=== PATIENT | male | born 1970 | race Caucasian/White ===

== ENCOUNTER 2016-04-19 12:06 | Observation (INO) | payer BC ==
[~2016-04-19] VITALS: Ht 180.3 cm; Wt 101.5 kg
[~2016-04-19 12:06] MED LIST: AMLO-114 PO; ASPI81TA28 PO; LISI40TA PO; LPT40 PO; PLV75 PO
[2016-04-19 12:51] LABS: BASO % 0.6 %; BASO ABS # 0.09 K/uL (0-0.2); COMPLETE YES; HEMATOCRIT 46.9 % (42-52); IG% 0.5 %; LYMPH % 19.1 %; LYMPH ABS # 3.01 K/uL (1.2-3.4); MEAN CELL VOLUME 83.5 fL (80-100); MEAN CORPUSCULAR HEMOGLOBIN 28.6 pg (25-34); MEAN CORPUSCULAR HGB CONC 34.3 g/dl (32-36); MEAN PLATELET VOLUME 10.8 fL (7.4-10.4); NEUT % 72.8 %; PLATELET COUNT 245 K/uL (130-400); RED BLOOD COUNT 5.62 M/uL (4.7-6.1); WHITE BLOOD COUNT 15.73 K/uL (4.8-10.8)
[2016-04-19 13:12] LABS: BUN/CREATININE RATIO 7.3 (10-20); CALCIUM 8.5 mg/dl (8.5-10.1); POTASSIUM 3.9 mmol/L (3.5-5.1)
[2016-04-19 13:15] LABS: ALB/GLOB RATIO 0.9 (0.9-2)
[2016-04-19] MEDS ORDERED: OPTIRAY 320 IV PRN (14:30)
--- NOTE | 2016-04-19 15:34 | DIAGNOSTIC IMAGING REPORT ---
CT ANGIOGRAM OF THE BRAIN COMBO; CT ANGIOGRAM OF THE NECK CLINICAL HISTORY: Right hand numbness. History of previous stroke. COMPARISON STUDY: CT angiogram of the brain and neck dated 08/01/2015. MRI of the brain dated 08/01/2015. TECHNIQUE: Unenhanced axial CT scan of the brain is performed. Subsequently, following the IV administration of 118 of Optiray 320, CT angiogram of the head and neck was performed from the aortic arch to the vertex. Images are reviewed in the axial, sagittal, and coronal planes. 3-D MIPS images are created and assessed. IV contrast was administered without complication. All measurements were calculated based on NASCET criteria. CT DOSE: 1074.82 mGy.cm FINDINGS: Brain parenchyma: Small foci of right frontoparietal encephalomalacia are consistent with remote infarcts. A chronic lacunar infarct is also seen in the right cerebellar hemisphere. There is no hemorrhage, mass effect, or evidence of acute territorial ischemia by CT criteria. There is no evidence of enhancing mass lesion on the angiogram phase images. The ventricles, sulci, and cisterns are normal in configuration. No extra-axial fluid collection is seen. Carranza-white matter differentiation is preserved. Thoracic aorta: Visualized portions of the thoracic aorta are normal in caliber. The aortic arch demonstrates standard 3-vessel anatomy. Subclavian arteries: Widely patent bilaterally. Right carotid arterial system: The right common carotid artery is widely patent, as are the right internal and external carotid arteries. Left carotid arterial system: The left common carotid artery is widely patent, as are the left internal and external carotid arteries. Vertebral arteries: The vertebral arteries are widely patent and codominant. Intracranial vasculature: There is moderate atherosclerotic calcification of the cavernous carotid arteries. There is a mild residual narrowing within the petrous portion of the right internal carotid artery to the skull base. This has significantly improved from the 08/01/2015 examination. The left internal carotid artery at the skull base as well as the anterior and middle cerebral arteries are widely patent. The vertebrobasilar system and the posterior cerebral arteries are widely patent. No aneurysm or focal vessel cutoff is identified. No dissection is seen Jugular veins: Widely patent bilaterally. Dural sinuses: Clear as visualized. Upper chest: Partially visualized upper lobe lung parenchyma appears clear. Mildly enlarged mediastinal lymph nodes measure up to 1.2 cm in short axis. Soft tissues: The visualized pharyngeal soft tissues are normal in appearance noting angiographic phase technique. The oropharyngeal airway appears widely patent. The salivary and thyroid glands are normal in appearance. No cervical lymphadenopathy is seen. Skeletal structures: The calvarium appears intact. The cervical spine is within normal limits. Sinuses and mastoids: Mild mucosal thickening is seen within the ethmoid and left frontal sinuses. Trace mucosal thickening is seen within the left maxillary antrum. There is a trace left mastoid effusion. The right mastoid air cells are well pneumatized. IMPRESSION: 1. Remote right hemispheric infarcts as above. There is no hemorrhage, mass effect, or evidence of acute territorial ischemia by CT criteria. 2. There is only minimal residual narrowing within the petrous portion of the intracranial right internal carotid artery. The intracranial vasculature is otherwise normal in appearance. 3. No aneurysm, focal vessel cut off, or dissection is identified on today's examination. 4. Unremarkable CT angiogram the neck. 5. Additional findings as above. Electronically signed by: Silviano Richmond M.D. 04/19/2016 3:32 PM Dictated Date/Time: 04/19/2016 3:18 PM
[2016-04-19] MEDS ORDERED: ACETAMINOPHEN 325 MG TAB PO PRN (18:00)
[2016-04-19] MEDS ORDERED: MAGNESIUM HYDROXIDE SUSP 30 ML UDC PO PRN (18:00)
[2016-04-19] MEDS ORDERED: ZOLPIDEM TARTRATE 5 MG TAB PO PRN (18:00)
[2016-04-19] MEDS ORDERED: ALUMINUM/MAGNESIUM/SIMETH (MAALOX MAX) 30 ML UDC PO PRN (18:00)
[2016-04-19] MEDS ORDERED: POLYETHYLENE (MIRALAX) 17 GM PACK PO PRN (18:00)
[2016-04-19] MEDS ORDERED: PHARMACIST DISCHARGE MED REC CONSULT PRN (18:00)
[2016-04-19] MEDS ORDERED: ONDANSETRON INJ 2 MG/ML 2 ML VIAL IV PRN (18:00)
--- NOTE | 2016-04-19 18:12 | History and Physical ---
History & Physical Date of Service Apr 19, 2016. History & Physical possible cva [id number]
[2016-04-19 18:15] LABS: ESTIMATED AVERAGE GLUCOSE 123 mg/dl; HA1C FLAG Normal (Normal)
[2016-04-19] MEDS ORDERED: IV FLUIDS COMPLETED PRN (18:30)
[2016-04-19 19:14] LABS: PROTHROMBIN TIME (PATIENT) 10.7 SECONDS (9.0-12.0)
[2016-04-19 19:30] VITALS: BP 122/85; PULSE 76; TEMP 36.9; O2SAT 94; Ht 180.3 cm; Wt 101.5 kg
[2016-04-19] MEDS: SODIUM CHLORIDE 0.9% 1000ML 1,000 ML IV SCH (19:57)
[2016-04-19] MEDS ORDERED: GADAVIST IV PRN (21:15)
--- NOTE | 2016-04-19 21:18 | DIAGNOSTIC IMAGING REPORT ---
MRI OF THE BRAIN WITHOUT AND WITH IV CONTRAST CLINICAL HISTORY: Possible cerebrovascular accident. Tingling and numbness in fingers. Previous stroke. COMPARISON STUDY: MRI of the brain August 01, 2015 and CTA and CTA of the head April 19, 2016. TECHNIQUE: Utilizing a 1.5 Dayanara magnet and dedicated coil, multiplanar, multiecho imaging of the brain was performed pre and postcontrast administration. IV administration of 10 mL of Gadavist contrast was uneventful. FINDINGS: There are no areas of restricted diffusion. No acute intracranial hemorrhage, midline shift or mass effect is present. Brain volume is normal. Ventricular system is normal. Basilar cisterns are patent. There are no extra-axial collections. Flow-voids for the major intracranial vessels are present. Multiple old infarcts are noted within the right cerebral hemisphere as well as within the right cerebellar hemisphere. No intracranial mass or pathologic enhancement is present. There is mild mucosal thickening of the sinuses. Orbits are unremarkable. IMPRESSION: 1. No acute intracranial findings. 2. Multiple old infarcts within the right cerebral and cerebellar hemispheres. 3. No intracranial masses. Electronically signed by: Anthony Hudson M.D. 04/19/2016 9:16 PM Dictated Date/Time: 04/19/2016 9:06 PM
--- NOTE | 2016-04-19 21:20 | DIAGNOSTIC IMAGING REPORT ---
CHEST 2 VIEWS ROUTINE CLINICAL HISTORY: Leukocytosis. COMPARISON STUDY: Chest radiograph August 01, 2015. FINDINGS: Lung volumes are normal. Lungs are clear. There is no pneumothorax or pleural effusion. Cardiac size is normal. Mediastinal contours are normal. There is no evidence of pulmonary edema. IMPRESSION: No acute cardiopulmonary findings. Electronically signed by: Anthony Hudson M.D. 04/19/2016 9:19 PM Dictated Date/Time: 04/19/2016 9:17 PM
--- NOTE | 2016-04-19 21:20 | EMERGENCY ROOM VISIT NOTE ---
History Report prepared by Morgan: Yesenia Austin Under the Supervision of: Dr. Kobi Gardiner M.D. First contact with patient: 14:01 Chief Complaint: NEURO SYMPTOMS Stated Complaint: TINGLING FINGER WITH NUMBNESS Nursing Triage Summary: patient to ed via als for neuro symptoms, states "I yumiko burning in right hand last night at 2200, then when i woke up this morning, my fingers were tingling. They aren't anymore, they are just really tender." Patient with previous strokes, reports similar symptoms with previous cva History of Present Illness The patient is a 45 year old male who presents to the Emergency Room with complaints of resolved right fingertip numbness that started 4 hours ago, around 1000. 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 He woke up around 1000 this morning with numbness in his right fingertips. He states that last night around 2200, he experienced burning in his right hand, but it resolved. The patient also states that ever since last night he has been increasingly thirsty because his mouth always feels dry. Pt denies LOC, headache, fevers, chills, diaphoresis, visual changes , trouble speaking, trouble swallowing, new neck pain, chest pain, breathing difficulties, nausea, vomiting, abdominal pain, back pain, melena, hematochezia , urinary symptoms, weakness, lymphadenopathy, rash, or other complaints. The patient states that his symptoms feel somewhat similar to when he had a stroke on August 01, 2015. However, he states that during that time, his whole left hand was edematous and numb. The patient's previous stroke was a result of a blood clot and possible dissection of his left carotid artery and it affected his left side. Source of History: patient Onset: 4 hours ago, around 1000 Position: finger(s) (right) Quality: numbness Timing: resolved Note: increased thirst, tingling around mouth Review of Systems See HPI for pertinent positives and negatives. A total of ten systems were reviewed and were otherwise negative. Past Medical & Surgical Medical Problems: (1) CVA (cerebral vascular accident) (2) Left hand weakness (3) possible cva Family History Diabetes mellitus Heart disease Hypertension Social History Smoking Status: Current Every Day Smoker Drug Use: none Marital Status: single Housing Status: lives alone Occupation Status: employed Current/Historical Medications Scheduled Amlodipine (Norvasc), 10 MG PO DAILY Atorvastatin (Atorvastatin Calcium), 80 MG PO QAM Clopidogrel Bisulfate (Clopidogrel), 75 MG PO QAM Lisinopril (Zestril), 40 MG PO DAILY Allergies Coded Allergies: No Known Allergies (Unverified , 04/19/16) Physical Exam Vital Signs Date Time Temp Pulse Resp B/P Pulse Ox O2 Delivery O2 Flow Rate FiO2 04/19/16 17:09 72 20 124/84 97 Room Air 04/19/16 15:53 74 16 107/76 95 Room Air 04/19/16 13:58 72 20 149/90 94 Room Air 04/19/16 12:11 95 16 135/93 95 Room Air Physical Exam GENERAL: Awake, alert, well appearing, no distress HENT: Normocephalic, atraumatic. TM's normal. Oropharynx unremarkable. EYES: PERRL. EOMI. Normal conjunctiva. Sclera non-icteric. NECK: Supple. No nuchal rigidity. FROM. No JVD or bruit. RESPIRATORY: CTA CARDIAC: RRR. No murmur. ABDOMEN: Soft, non distended. No tenderness to palpation. No rebound or guarding. No masses. RECTAL: Deferred. MUSCULOSKELETAL: Unremarkable. No edema. No discoloration. Gross motor strength symmetric. NEURO: Cranial nerves 2-12 grossly intact. Normal sensorium. No sensory or motor deficits noted. Speech normal. No pronator drift. SKIN: No rash or jaundice noted. LYMPH: No adenopathy. Medical Decision & Procedures ER Provider Diagnostic Interpretation: CT results as stated below per my review and radiologist interpretation CT ANGIOGRAM OF THE BRAIN COMBO; CT ANGIOGRAM OF THE NECK IMPRESSION: 1. Remote right hemispheric infarcts as above. There is no hemorrhage, mass effect, or evidence of acute territorial ischemia by CT criteria. 2. There is only minimal residual narrowing within the petrous portion of the intracranial right internal carotid artery. The intracranial vasculature is otherwise normal in appearance. 3. No aneurysm, focal vessel cut off, or dissection is identified on today's examination. 4. Unremarkable CT angiogram the neck. 5. Additional findings as above. Electronically signed by: Silviano Richmond M.D. 04/19/2016 3:32 PM Dictated Date/Time: 04/19/2016 3:18 PM Laboratory Results 04/19/16 12:35 Red Blood Count 5.62, Mean Corpuscular Volume 83.5, Mean Corpuscular Hemoglobin 28.6, Mean Corpuscular Hemoglobin Concent 34.3, Mean Platelet Volume 10.8, Neutrophils (%) (Auto) 72.8, Lymphocytes (%) (Auto) 19.1, Monocytes (%) (Auto) 6.0, Eosinophils (%) (Auto) 1.0, Basophils (%) (Auto) 0.6, Neutrophils # (Auto) 11.46, Lymphocytes # (Auto) 3.01, Monocytes # (Auto) 0.94, Eosinophils # (Auto) 0.15, Basophils # (Auto) 0.09 04/19/16 12:35 Test 04/19/16 12:35 White Blood Count 15.73 K/uL (4.8-10.8) Red Blood Count 5.62 M/uL (4.7-6.1) Hemoglobin 16.1 g/dL (14.0-18.0) Hematocrit 46.9 % (42-52) Mean Corpuscular Volume 83.5 fL (80-100) Mean Corpuscular Hemoglobin 28.6 pg (25-34) Mean Corpuscular Hemoglobin Concent 34.3 g/dl (32-36) Platelet Count 245 K/uL (130-400) Mean Platelet Volume 10.8 fL (7.4-10.4) Neutrophils (%) (Auto) 72.8 % Lymphocytes (%) (Auto) 19.1 % Monocytes (%) (Auto) 6.0 % Eosinophils (%) (Auto) 1.0 % Basophils (%) (Auto) 0.6 % Neutrophils # (Auto) 11.46 K/uL (1.4-6.5) Lymphocytes # (Auto) 3.01 K/uL (1.2-3.4) Monocytes # (Auto) 0.94 K/uL (0.11-0.59) Eosinophils # (Auto) 0.15 K/uL (0-0.5) Basophils # (Auto) 0.09 K/uL (0-0.2) RDW Standard Deviation 43.3 fL (36.4-46.3) RDW Coefficient of Variation 14.1 % (11.5-14.5) Immature Granulocyte % (Auto) 0.5 % Immature Granulocyte # (Auto) 0.08 K/uL (0.00-0.02) Prothrombin Time 10.7 SECONDS (9.0-12.0) Prothromb Time International Ratio 1.0 (0.9-1.1) Activated Partial Thromboplast Time 25.3 SECONDS (21.0-31.0) Partial Thromboplastin Ratio 1.0 Anion Gap 12.0 mmol/L (3-11) Est Creatinine Clear Calc Drug Dose 113.8 ml/min Estimated GFR () 104.1 Estimated GFR (Non- 89.9 BUN/Creatinine Ratio 7.3 (10-20) Estimated Average Glucose 123 mg/dl Hemoglobin A1c 5.9 % (4.5-5.6) Calcium Level 8.5 mg/dl (8.5-10.1) Total Bilirubin 0.2 mg/dl (0.2-1) Aspartate Amino Transf (AST/SGOT) 16 U/L (15-37) Alanine Aminotransferase (ALT/SGPT) 27 U/L (12-78) Alkaline Phosphatase 121 U/L (45-117) Total Protein 7.6 gm/dl (6.4-8.2) Albumin 3.5 gm/dl (3.4-5.0) Globulin 4.1 gm/dl (2.5-4.0) Albumin/Globulin Ratio 0.9 (0.9-2) Laboratory results reviewed by me ECG Indication: weakness Rate (beats per minute): 75 Rhythm: normal sinus Findings: no acute ischemic change, no ectopy ED Course 1407: The patient was evaluated in room B4. A complete history and physical exam was performed. 1608: I reassessed the patient and informed him that I am waiting on a call from Dr. Clark. 1610: Discussed the patient's case with Dr. Clark - Neurology. He recommends having the patient stay in the hospital for inpatient monitoring and a further stroke work-up. He recommends a MRI and SARA. 1621: Upon reexamination, the patient was resting comfortably. I discussed the test results and treatment plan with him. The patient will be evaluated for further management. 1637: Discussed the patient's case with Dr. Beata Gonzalez [facility]. The patient will be evaluated for further treatment and disposition. Medical Decision Triage Nursing notes reviewed. The patient's presentation and history were concerning for tingling in his fingers and numbness. Etiologies such as metabolic, infection, hypo/hyperglycemia, electrolyte abnormalities, cardiac sources, intracerebral event, toxicologic, neurologic, as well as others were entertained. The patient was evaluated. He has a history of CVA. The patient had a mild leukocytosis on CBC. Chemistry panel and LFTs were unremarkable. He underwent CT angiography and there were no acute findings noted. Old right-sided infarcts noted. I did consult with neurology. Given his findings and history neurology recommended inpatient workup due to concerns about possible embolic issues. The patient was informed. Internal medicine was consulted. The patient was evaluated in the Emergency Room for further management. The chart was completed utilizing [employer] Speech voice recognition software. Grammatical errors, random word insertions, pronoun errors, and incomplete sentences are an occasional consequence of this system due to software limitations, ambient noise, and hardware issues. Any formal questions or concerns about the content, text, or information contained within the body of this dictation should be directly addressed to the physician for clarification. Consults Time Called: 1606 Consulting Physician: Dr. Eduardo Cisneros Returned Call: 1610 Discussed the patient's case with Dr. Eduardo Cisneros. He recommends having the patient stay in the hospital for inpatient monitoring and a further stroke work-up. He recommends a MRI and SARA. Additional Consults: Time Called: 1632 Consulted Physician: Dr. Beata SCHROEDER Returned Call: [phone] Additional Comments: Discussed the patient's case with Dr. Beata SCHROEDER. The patient will be evaluated for further treatment and disposition. Impression Primary Impression: Numbness of right hand Additional Impression: History of CVA (cerebrovascular accident) Scribe Attestation The scribe's documentation has been prepared under my direction and personally reviewed by me in its entirety. I confirm that the note above accurately reflects all work, treatment, procedures, and medical decision making performed by me. Departure Information Dispostion Being Evaluated By Hospitalist Referrals No Doctor, Assigned (PCP) Patient Instructions [facility] Problem Qualifiers
[2016-04-19] MEDS: HEPARIN SOD 5000 UNIT/0.5 ML CARP SQ SCH (21:24)
[2016-04-19] MEDS ORDERED: NICOTINE 21 MG/24 HR TDSY TD ONE (21:35)
[2016-04-19 22:07] LABS: URINE APPEARANCE CLEAR (CLEAR); URINE BILIRUBIN NEG (NEG); URINE COLOR YELLOW; URINE NITRITE NEG (NEG); URINE SPECIFIC GRAVITY > 1.045 (1.000-1.030); UROBILINOGEN NEG (NEG)
[2016-04-19 22:29] LABS: MANUAL MICROSCOPIC REQUIRED? NO; REVIEW REQ? NO
[2016-04-19 23:30] VITALS: BP 102/66; PULSE 67; TEMP 36.6; O2SAT 92
[2016-04-20] VITALS (8 sets, daily range): BP systolic 105–132; BP diastolic 70–85; PULSE 61–72; TEMP 36.4–36.6; O2SAT 92–98
--- NOTE | 2016-04-20 00:51 | HISTORY & PHYSICAL EXAMINATION ---
DATE OF ADMISSION: 04/19/2016 This is a level 3 observation H\T\P, 25 minutes. CHIEF COMPLAINT: Right hand and finger tingling and numbness. HISTORY OF PRESENT ILLNESS: The patient is a 45-year-old white male with a significant past medical history of CVA, ischemic stroke 2 years ago, hypertension and dyslipidemia, coming to the hospital Emergency Department because of the above chief complaint. He reports the right fingertips numbness started this morning about 4 hours ago around 10:00 a.m. The patient stated the fingertips are not numb anymore and just really tender. 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 this morning. He woke up around 10:00 a.m. this morning with numbness in his right fingertips. He stated that last night at around 2200, he experienced burning in his right hand, but it resolved. The patient also stated that even since last night he has been having increased thirst because of which the mouth always feels dry. In the Emergency Room, evaluation of labs was not remarkable except WBC which was 15,000. The ED physician had a head CTA and CTA of the neck which only shows remote right hemispheric infarction. Otherwise, not remarkable. I was called for possible admission of the patient. When I interviewed the patient he is awake, alert, orientated, pleasant, conversational, follows all commands and speaks in full sentences. He did report that when he checked himself in the mirror this morning had possible right facial droop, but not anymore. PAST MEDICAL HISTORY: Like I mentioned above includes a CVA 2 years ago. In his CVA 2 years ago, he was found to have high grade stenosis in upper level of right ICA, has been on antiplatelet with Plavix. He had echo studies and three time attempts for SARA, was not able to tolerate. History of hypertension and dyslipidemia. PAST SURGICAL HISTORY: None. REVIEW OF SYSTEMS: Please see HPI, otherwise 14-point organ system review was negative. SOCIAL HISTORY: Positive for tobacco abuse. Denied alcohol abuse. Denied illicit drug abuse. Lives independently. FAMILY HISTORY: Noncontributory. MEDICATIONS: Taking at home which include; amlodipine 10 mg p.o. daily, atorvastatin 80 mg p.o. q.a.m., clopidogrel 75 mg p.o. q.a.m. and lisinopril 40 mg p.o. daily. PHYSICAL EXAMINATION: VITAL SIGNS: Temperature is 36.8, pulse 65, respiratory rate 20, blood pressure 129/77 and pulse ox was 95% on room air. GENERAL: The patient is a white male, with mild obesity, awake, alert and orientated. HEAD: Normocephalic. EYES: Pupils are equal, round and responds to light. EARS: Normal. NOSE: Normal. NECK: Supple. Thyroid; no enlargement. Trachea; midline. HEART: Regular rhythm. S1, S2. Has no murmur. LUNGS: Decreased breathing sounds. There was no wheezing, rhonchi or crackles. ABDOMEN: Obese, nontender. Bowel sounds positive. Bilateral CVA was nontender. GENITOURINARY AND RECTAL: Deferred. BILATERAL LOWER EXTREMITIES: No swelling. Homans sign was negative. There was no cyanosis, no clubbing. NEUROLOGIC: Cranial nerves II-XII was intact. There was no local deficits. Moves upper and lower extremities. There was no obvious sensation decrease in the bilateral upper and lower extremities. NIH stroke scale currently is 0. SKIN: Has no rashes. LABORATORY STUDIES: WBC 15, hemoglobin 16, platelet 245. BMP: BUN 7, creatinine 1. Sodium 138, potassium 3.9. Blood glucose 121. In the Emergency Room had a head CTA like I mentioned above right hemispheric infarction. No hemorrhage, mass effect or evidence of acute territorial ischemia by CT criteria. There is only minimal residual narrowing within the petrous portion of the intracranial right ICA, the intracranial vasculature is otherwise normal in appearance. No aneurysm. Head and neck CTA; like I mentioned above. ASSESSMENT AND PLAN: A 45-year-old white male with history of cerebrovascular accident, right high grade carotid artery stenosis, presents with right fingertip tingling and numbness, possibly has cerebrovascular accident. He did report the symptoms were quite the same like his previous episode of CVA, and therefore will be observed in the tele floor. will be per stroke protocol. Neuro check q. 4 hours. Continue home medications to include; Plavix, lisinopril and atorvastatin. We will check fasting lipid panels, hemoglobin A1c levels. Will have neuro consultation. The ED physician talked to the neurologist. He did recommended possible need of transesophageal echocardiogram and we will order a brain MRI as well. I have consulted cardiology for possible need of a transesophageal echocardiogram. Because the patient has no speech problems, we will give him low fat heart healthy diet for now. Speech evaluation to continue recommendation. We will give him gentle IV fluids. The patient has mild leukocytosis, etiology unknown. We will check a chest x-ray, UA, send a blood culture and then follow up. Deep venous thrombosis prophylaxis will be heparin. GI prophylaxis will be Protonix. I discussed with patient and family about the care plan. I answered all the questions. The patient is full code. MTDD
[2016-04-20 06:31] LABS: BUN/CREATININE RATIO 9.1 (10-20); CALCIUM 8.2 mg/dl (8.5-10.1); CREATININE 0.99 mg/dl (0.60-1.40); POTASSIUM 3.7 mmol/L (3.5-5.1)
[2016-04-20 06:34] LABS: CHOLESTEROL/HDL RATIO 7.7
[2016-04-20 06:46] LABS: HEMATOCRIT 45.5 % (42-52); MEAN CELL VOLUME 85.8 fL (80-100); MEAN CORPUSCULAR HEMOGLOBIN 29.1 pg (25-34); MEAN CORPUSCULAR HGB CONC 33.8 g/dl (32-36); MEAN PLATELET VOLUME 10.9 fL (7.4-10.4); PLATELET COUNT 223 K/uL (130-400); WHITE BLOOD COUNT 9.26 K/uL (4.8-10.8)
[2016-04-20] MEDS: NICOTINE 21 MG/24 HR TDSY TD SCH (07:11)
[2016-04-20] MEDS: CLOPIDOGREL BISULFATE 75 MG TAB PO SCH (07:12)
[2016-04-20] MEDS: LISINOPRIL 40 MG TAB PO SCH (07:13)
[2016-04-20] MEDS: AMLODIPINE BESYLATE 5 MG TAB PO SCH (07:13)
[2016-04-20] MEDS: ATORVASTATIN 40 MG TAB PO SCH (07:14)
[2016-04-20] MEDS: SODIUM CHLORIDE 0.9% 1000ML 1,000 ML IV SCH (07:16)
[2016-04-20 08:42] LABS: BASO % 0.8 %; BASO ABS # 0.07 K/uL (0-0.2); COMPLETE YES; EOS % 2.6 %; IG% 0.4 %; LYMPH % 52.5 %; LYMPH ABS # 4.86 K/uL (1.2-3.4); MONO % 7.2 %; NEUT % 36.5 %; SMUDGE CELLS PRESENT
[2016-04-20] MEDS: HEPARIN SOD 5000 UNIT/0.5 ML CARP SQ SCH ×2 (09:22→22:20)
--- NOTE | 2016-04-20 10:45 | ECHOCARDIOGRAM REPORT ---
*NOTICE TO RECEIVING [employer] This information is strictly Confidential and protected under [place] law. [place] law prohibits you from making any further disclosure of this information unless further disclosure is expressly permitted by the written consent of the person to whom it pertains or is authorized by law. A general authorization for the release of medical or other information is not sufficient for this purpose. Hospital accepts no responsibility if the information is made available to any other person, INCLUDING THE PATIENT. Interpretation Summary * Name: AVA BERRY Study Date: 04/20/2016 07:45 AM BP: 129/78 mmHg * Patient Location: C.2T\S\S232\S\1 HR: 62 * : 1970 (M/d/yyyy) Gender: Male Height: 70 in * Age: 45 yrs Ethnicity: CA Weight: 231 lb * Ordering Physician: Navarro Cota * Referring Physician: Self, Referred * Performed By: Santos Caceres RCS * * Reason For Study: CVA * BSA: 2.2 m2 * -- Conclusions -- * 1. Normal LV size and wall thickness. * 2. Normal LV systolic function. LVEF 50-55%. No regional wall motion abnormalities. * 3. Normal RV size and function. * 4. No significant valvular pathology. * 5. Compared with prior study on 08/01/2015: No significant changes. Procedure Details * A complete two-dimensional transthoracic echocardiogram was performed (2D, M-mode, Doppler and color flow Doppler). Left Ventricle * The left ventricle is grossly normal size. * There is normal left ventricular wall thickness. * Ejection Fraction = 50-55%. * No regional wall motion abnormalities noted. Right Ventricle * The right ventricle is grossly normal size. * The right ventricular systolic function is normal as assessed by tricuspid annular plane systolic excursion (TAPSE) (normal >1.5 cm). Atria * The left atrial size is normal. * Right atrial size is normal. * No ASD detected; PFO is not assessed. Mitral Valve * The mitral valve is grossly normal. * There is no mitral valve stenosis. * Significant mitral regurgitation is absent. Tricuspid Valve * The tricuspid valve is not well visualized, but is grossly normal. * There is no tricuspid stenosis. * Significant tricuspid regurgitation is absent. Aortic Valve * The aortic valve opens well. * The aortic valve is trileaflet. * No hemodynamically significant valvular aortic stenosis. * There is no significant aortic regurgitation. Pulmonic Valve * The pulmonic valve is not well seen, but is grossly normal. * There is no pulmonic valvular stenosis. * Trace pulmonic valvular regurgitation. Great Vessels * The aortic root and proximal ascending aorta are normal sized. Pericardium/Pleural * There is no pericardial effusion. Great Vessels * Normal inferior vena cava size and collapsability with sniff indicates a normal right atrial pressure of 3 mmHg MMode 2D Measurements and Calculations IVSd 1.0 cm IVSs 1.3 cm LVIDd 5.1 cm LVIDs 3.2 cm LVPWd 1.0 cm LVPWs 1.3 cm IVS/LVPW 1.0 FS 36.3 % EDV(Teich) 121.2 ml ESV(Teich) 41.5 ml EF(Teich) 65.8 % EDV(cubed) 129.0 ml ESV(cubed) 33.3 ml EF(cubed) 74.2 % % IVS thick 31.6 % % LVPW thick 30.7 % LV mass(C)d 190.0 grams LV mass(C)dI 85.6 grams/m\S\2 LV mass(C)s 143.0 grams LV mass(C)sI 64.4 grams/m\S\2 CO(Teich) 4.9 l/min CI(Teich) 2.2 l/min/m\S\2 SV(Teich) 79.7 ml SI(Teich) 35.9 ml/m\S\2 CO(cubed) 5.9 l/min CI(cubed) 2.7 l/min/m\S\2 SV(cubed) 95.7 ml SI(cubed) 43.1 ml/m\S\2 Ao root diam 3.6 cm Ao root area 10.1 cm\S\2 ACS 2.0 cm LA dimension 3.8 cm LA/Ao 1.1 LVAd ap4 27.6 cm\S\2 LVLd ap4 7.9 cm EDV(MOD-sp4) 79.0 ml LVAs ap4 17.3 cm\S\2 LVLs ap4 7.1 cm ESV(MOD-sp4) 35.0 ml EF(MOD-sp4) 55.7 % LVAd ap2 21.5 cm\S\2 LVLd ap2 6.8 cm EDV(MOD-sp2) 57.0 ml LVAs ap2 12.4 cm\S\2 LVLs ap2 5.3 cm ESV(MOD-sp2) 26.0 ml EF(MOD-sp2) 54.4 % CO(MOD-sp4) 2.7 l/min CI(MOD-sp4) 1.2 l/min/m\S\2 SV(MOD-sp4) 44.0 ml SI(MOD-sp4) 19.8 ml/m\S\2 CO(MOD-sp2) 1.9 l/min CI(MOD-sp2) 0.87 l/min/m\S\2 SV(MOD-sp2) 31.0 ml SI(MOD-sp2) 14.0 ml/m\S\2 Doppler Measurements and Calculations MV E max trin[place] 68.2 cm/sec MV A max [place] 56.2 cm/sec MV E/A 1.2 MV P1/2t max [place] 89.6 cm/sec MV P1/2t 60.2 msec MVA(P1/2t) 3.7 cm\S\2 MV dec slope 436.2 cm/sec\S\2 MV dec time 0.20 sec Ao V2 max 117.4 cm/sec Ao max PG 5.5 mmHg Ao max PG (full) 3.1 mmHg LV V1 max PG 2.4 mmHg LV V1 max 78.2 cm/sec PA V2 max 124.3 cm/sec PA max PG 6.2 mmHg PI max [place] 191.4 cm/sec PI max PG 14.7 mmHg PI dec slope 175.1 cm/sec\S\2 PI P1/2t 320.1 msec
--- NOTE | 2016-04-20 10:50 | Neurology Consultation ---
Neurology Consultation Date of Consultation: Apr 20, 2016. Attending Physician: Navarro Cota MD, PhD Primary Care Physician: Calvin Baker M.D. 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 He has a history of hypertension and tobacco abuse. The patient was admitted to [facility] in July [address] Partida in neurological consultation at that time. He had presented with acute, multifocal, ischemic infarcts within the right cerebral hemisphere at that time. 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 He had presented with a left hemiparesis and associated sensory loss at that time but was outside of the window for administration of TPA. 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 He does complain of some mild heaviness and numbness the primarily affects the left leg when fatigued, but otherwise no major issues. He continues to smoke, however. He has been taking Plavix as prescribed. The patient did have an echocardiogram completed during his last admission which was unremarkable. A hypercoagulable profile was also completed and revealed only mild elevation in homocysteine level. The patient presented to the emergency department yesterday with new neurological complaints. He reports that after arriving home from work, he typically works the third shift, he began to feel a little dizzy. He subsequently went to bed at around 7 in the morning but remembers awakening several hours later with burning pain and tingling affecting the fingertips of the right hand but not clearly affecting the thumb. He denied experiencing associated wrist, elbow, or shoulder pain. He does complain of some chronic neck pain she feels is a bit worse than usual. He got up and went to work as usual but continued to notice the unusual sensory symptoms affecting fingertips of the right hand. He does not experiencing associated weakness or clumsiness of the right hand. He is right handed. He does not experiencing similar sensory symptoms of the right leg. He may have had some numbness and tingling around the mouth but he is not really certain of this symptom. Due to the persistence of his symptoms, however, he decided to seek evaluation at [facility], especially in light of his previous history of stroke. I reviewed the images and radiologist's interpretation of the recently completed brain MRI. There is no evidence of acute or subacute stroke. There are multiple old infarcts within the right cerebral hemisphere and right cerebellum consistent with this patient's history of stroke. An up-to-date CT angiogram has also been completed. There is evidence of minimal residual narrowing of the petrous right internal carotid artery. No significant vascular occlusion within the cervical vessels. Electrocardiogram reveals a normal sinus rhythm, 75 bpm. Past Medical/Surgical History Medical Problems: (1) History of CVA (cerebrovascular accident) Status: Acute (2) Left arm numbness Status: Acute (3) Left arm weakness Status: Acute (4) Numbness of right hand Status: Acute Family History Family history significant for WA and stroke in the father, WA in the mother Social History Smoking Status: Current every day smoker Drug Use: none Marital Status: single Housing Status: lives alone Occupation Status: employed Allergies Coded Allergies: No Known Allergies (Unverified , 04/19/16) Current Inpatient Medications Current Inpatient Medications Medications (Trade) Dose Ordered Sig/Giselle Route Start Time Stop Time Status Last Admin Dose Admin Ioversol (Optiray 320) 125 ml UD PRN IV 04/19/16 14:30 04/23/16 14:29 Miscellaneous Information 1 ea 1 ea UD PRN N/A 04/19/16 18:00 05/19/16 17:59 Sodium Chloride (Nss 1000ml) 1,000 ml @ 100 mls/hr Q10H IV 04/19/16 20:00 05/19/16 19:59 04/20/16 07:16 100 MLS/HR Heparin Sodium (Porcine) (Heparin Sq 5000 Unit/0.5ml) 5,000 unit Q12 SQ 04/19/16 21:00 05/19/16 20:59 04/20/16 09:22 5,000 UNIT Acetaminophen (Tylenol Tab) 650 mg Q4H PRN PO 04/19/16 18:00 05/19/16 17:59 Al Hydrox/Mg Hydrox/Simethicone (Maalox Max Susp) 15 ml Q4H PRN PO 04/19/16 18:00 05/19/16 17:59 Magnesium Hydroxide (Milk Of Magnesia Susp) 30 ml Q12H PRN PO 04/19/16 18:00 05/19/16 17:59 Zolpidem Tartrate (Ambien Tab) 5 mg HSZ PRN PO 04/19/16 18:00 05/19/16 17:59 Ondansetron HCl (Zofran Inj) 4 mg Q6H PRN IV 04/19/16 18:00 05/19/16 17:59 Polyethylene (Miralax Powder Packet) 17 gm DAILY PRN PO 04/19/16 18:00 05/19/16 17:59 Amlodipine Besylate (Norvasc Tab) 10 mg DAILY PO 04/20/16 09:00 05/20/16 08:59 04/20/16 07:13 10 MG Atorvastatin Calcium (Lipitor Tab) 80 mg QAM PO 04/20/16 09:00 05/20/16 08:59 04/20/16 07:14 80 MG Clopidogrel Bisulfate (plAVix TAB) 75 mg QAM PO 04/20/16 09:00 05/20/16 08:59 04/20/16 07:12 75 MG Lisinopril (Zestril Tab) 40 mg DAILY PO 04/20/16 09:00 05/20/16 08:59 04/20/16 07:13 40 MG Miscellaneous (Iv Fluids Completed) 1 ea PRN PRN N/A 04/19/16 18:30 04/19/17 18:29 Gadobutrol (Gadavist) 10 mmol UD PRN IV 04/19/16 21:15 04/23/16 21:14 Nicotine (Nicoderm Cq 21MG Patch) 1 patch QAM TD 04/20/16 09:00 05/20/16 08:59 04/20/16 07:11 1 PATCH Miscellaneous (Remove Nicoderm Patch) 1 ea HS N/A 04/20/16 21:00 05/20/16 20:59 Review of Systems The patient denies fever, chills, chest pain, palpitations, shortness of breath , coughing, wheezing, abdominal pain, dysuria, diarrhea, muscle pain, joint pain , rash, easy bruising, swollen glands, depression, anxiety, insomnia He does complain of episodic headaches, about 2-3 per week with associated nausea for which she takes naproxen with good relief. A full 10 point review of systems was obtained from this patient and is as described in the history of present illness and otherwise listed above Physical Exam Vital Signs (Past 24 Hrs): Date Time Temp Pulse Resp B/P Pulse Ox O2 Delivery O2 Flow Rate FiO2 04/20/16 08:00 Room Air 04/20/16 07:30 36.5 68 20 121/81 92 Room Air 04/20/16 04:12 36.4 62 17 129/78 94 Room Air 04/20/16 03:30 Room Air 04/19/16 23:30 36.6 67 21 102/66 92 Room Air 04/19/16 23:30 Room Air 04/19/16 19:30 36.9 76 17 122/85 94 Room Air 04/19/16 18:37 89 16 148/97 96 Room Air 04/19/16 17:09 72 20 124/84 97 Room Air 04/19/16 15:53 74 16 107/76 95 Room Air 04/19/16 13:58 72 20 149/90 94 Room Air 04/19/16 12:11 95 16 135/93 95 Room Air The patient is a well-developed, middle-aged male. He is lying comfortably in bed, no acute distress, pleasant and cooperative. He is alert and oriented to person place and time. Attention and concentration normal. Recent and remote memory normal. He exhibits a normal, spontaneous fluent speech pattern. He is able to name objects and repeat phrases without difficulty. Vocabulary normal. Fund of knowledge normal. Visual pradhan full to confrontation. Visual acuity normal. Pupils equal round reactive to light and accommodation. Eye movements normal. No nystagmus. Facial sensation intact. There is no facial droop. Normal facial symmetry and strength. Palate elevates to midline. Tongue protrudes to midline. Shoulder shrug and hearing intact bilaterally. There is a slight, relative sensory deficit to vibration and light touch affecting the left leg. Sensation is otherwise intact for the remaining limbs. Deep tendon reflexes are diffusely diminished in a fairly symmetric fashion. Plantar responses downgoing bilaterally. There is slight dysmetria with finger to nose on the left and heel to lal on the left. Finger to nose and heel to lal for the right normal. Ophthalmoscopic examination reveals normal-appearing optic nerves and posterior segments. No papilledema. No hemorrhages. Cardiovascular examination reveals a faint systolic murmur to auscultation at the right sternal border. There are no carotid bruits. Peripheral pulses intact. No color changes or edema of the distal limbs. Musculoskeletal examination reveals generally intact strength for the arms and legs bilaterally. 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 There is a slight pronator drift for the right upper limb. Muscle tone normal throughout. No atrophy. No abnormal movements observed. Gait cannot be tested. Laboratory Results Past 24 Hours: 04/20/16 05:36 Red Blood Count 5.30, Mean Corpuscular Volume 85.8, Mean Corpuscular Hemoglobin 29.1, Mean Corpuscular Hemoglobin Concent 33.8, Mean Platelet Volume 10.9, Neutrophils (%) (Auto) 36.5, Lymphocytes (%) (Auto) 52.5, Monocytes (%) (Auto) 7.2, Eosinophils (%) (Auto) 2.6, Basophils (%) (Auto) 0.8, Neutrophils # (Auto) 3.38, Lymphocytes # (Auto) 4.86, Monocytes # (Auto) 0.67, Eosinophils # (Auto) 0.24, Basophils # (Auto) 0.07 04/20/16 05:36 Test 04/19/16 12:35 04/19/16 21:50 04/20/16 05:36 Prothrombin Time 10.7 SECONDS (9.0-12.0) Prothromb Time International Ratio 1.0 (0.9-1.1) Activated Partial Thromboplast Time 25.3 SECONDS (21.0-31.0) Partial Thromboplastin Ratio 1.0 Estimated Average Glucose 123 mg/dl Hemoglobin A1c 5.9 % (4.5-5.6) Total Bilirubin 0.2 mg/dl (0.2-1) Aspartate Amino Transf (AST/SGOT) 16 U/L (15-37) Alanine Aminotransferase (ALT/SGPT) 27 U/L (12-78) Alkaline Phosphatase 121 U/L (45-117) Total Protein 7.6 gm/dl (6.4-8.2) Albumin 3.5 gm/dl (3.4-5.0) Globulin 4.1 gm/dl (2.5-4.0) Albumin/Globulin Ratio 0.9 (0.9-2) Urine Color YELLOW Urine Appearance CLEAR (CLEAR) Urine pH 5.0 (4.5-7.5) Urine Specific [place] > 1.045 (1.000-1.030) Urine Protein NEG (NEG) Urine Glucose (UA) NEG (NEG) Urine Ketones NEG (NEG) Urine Occult Blood NEG (NEG) Urine Nitrite NEG (NEG) Urine Bilirubin NEG (NEG) Urine Urobilinogen NEG (NEG) Urine Leukocyte Esterase NEG (NEG) White Blood Count 9.26 K/uL (4.8-10.8) Red Blood Count 5.30 M/uL (4.7-6.1) Hemoglobin 15.4 g/dL (14.0-18.0) Hematocrit 45.5 % (42-52) Mean Corpuscular Volume 85.8 fL (80-100) Mean Corpuscular Hemoglobin 29.1 pg (25-34) Mean Corpuscular Hemoglobin Concent 33.8 g/dl (32-36) Platelet Count 223 K/uL (130-400) Mean Platelet Volume 10.9 fL (7.4-10.4) Neutrophils (%) (Auto) 36.5 % Lymphocytes (%) (Auto) 52.5 % Monocytes (%) (Auto) 7.2 % Eosinophils (%) (Auto) 2.6 % Basophils (%) (Auto) 0.8 % Neutrophils # (Auto) 3.38 K/uL (1.4-6.5) Lymphocytes # (Auto) 4.86 K/uL (1.2-3.4) Monocytes # (Auto) 0.67 K/uL (0.11-0.59) Eosinophils # (Auto) 0.24 K/uL (0-0.5) Basophils # (Auto) 0.07 K/uL (0-0.2) RDW Standard Deviation 45.1 fL (36.4-46.3) RDW Coefficient of Variation 14.3 % (11.5-14.5) Immature Granulocyte % (Auto) 0.4 % Immature Granulocyte # (Auto) 0.04 K/uL (0.00-0.02) Smudge Cells PRESENT Anion Gap 11.0 mmol/L (3-11) Est Creatinine Clear Calc Drug Dose 114.9 ml/min Estimated GFR () 105.4 Estimated GFR (Non- 91.0 BUN/Creatinine Ratio 9.1 (10-20) Calcium Level 8.2 mg/dl (8.5-10.1) Triglycerides Level 278 mg/dl (0-150) Cholesterol Level 193 mg/dl (0-200) HDL Cholesterol 25 mg/dl LDL Cholesterol, Calculated 112 mg/dl VLDL Cholesterol, Calculated 56 mg/dl Cholesterol/HDL Ratio 7.7 Impression Relatively acute onset sensory disturbance to the fingertips of the right hand, excluding the thumb. Initial sensory disturbance was described as burning pain which changed in character to pins and needles or paresthesia. 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 The differential diagnosis would include idiopathic brachial neuritis (which would be quite mild at this time), a small ischemic left hemispheric stroke not observed on the recently completed brain MRI or carpal tunnel syndrome, (although negative Tinel's at the wrist, and atypical pattern of sensory disturbance). Plan I would recommend an MRI of the cervical spine and brachial plexus to further evaluate his sensory symptoms and associated weakness of the right hand. An EMG/NCS of the right upper extremity should also be completed as an outpatient. Continue Plavix. Follow up with results of the up-to-date transthoracic echocardiogram, I do appreciate a faint systolic murmur at the right sternal border which is of undetermined significance. I will order an up-to-date sedimentation rate and Lyme screen as well as a vitamin B-12 and folate levels.
[2016-04-20 12:45] LABS: LYME DISEASE AB IGG NEG (NEG); LYME DISEASE AB IGM NEG (NEG)
--- NOTE | 2016-04-20 13:31 | Progress Note ---
Subjective Date of Service: Apr 20, 2016. Subjective Pt evaluation today including: conversation w/ patient, conversation w/ family , physical exam, chart review, lab review, review of studies, review of inpatient medication list No new complaints. Feeling fine. Still has numbness and tingling of right arm. Imaging studies results discussed. Lab results discussed. No chest pain, no sob. No lightheadedness, no abd pain, no n/v, no urinary symptoms. GOod appetite. Problem List Medical Problems: (1) History of CVA (cerebrovascular accident) Status: Acute (2) Left arm numbness Status: Acute (3) Left arm weakness Status: Acute (4) Numbness of right hand Status: Acute Review of Systems All Other Systems: Reviewed and Negative Medications Acetaminophen (Tylenol Tab) 650 mg Q4H PRN PO; Start 04/19/16 at 18:00; Stop at 17:59 Al Hydrox/Mg Hydrox/Simethicone (Maalox Max Susp) 15 ml Q4H PRN PO; Start at 18:00; Stop 05/19/16 at 17:59 Amlodipine Besylate (Norvasc Tab) 10 mg DAILY PO Last administered on 04/20/16 07:13; Admin Dose 10 MG; Start 04/20/16 at 09:00; Stop 05/20/16 at 08:59 Atorvastatin Calcium (Lipitor Tab) 80 mg QAM PO Last administered on 04/20/16 07 :14; Admin Dose 80 MG; Start 04/20/16 at 09:00; Stop 05/20/16 at 08:59 Clopidogrel Bisulfate (plAVix TAB) 75 mg QAM PO Last administered on 04/20/16 07 :12; Admin Dose 75 MG; Start 04/20/16 at 09:00; Stop 05/20/16 at 08:59 Gadobutrol (Gadavist) 10 mmol UD PRN IV; Start 04/19/16 at 21:15; Stop 04/23/16 at 21:14 Heparin Sodium (Porcine) (Heparin Sq 5000 Unit/0.5ml) 5,000 unit Q12 SQ Last administered on 04/20/16 09:22; Admin Dose 5,000 UNIT; Start 04/19/16 at 21:00; Stop 05/19/16 at 20:59 Ioversol (Optiray 320) 125 ml UD PRN IV; Start 04/19/16 at 14:30; Stop 04/23/16 at 14:29 Lisinopril (Zestril Tab) 40 mg DAILY PO Last administered on 04/20/16 07:13; Admin Dose 40 MG; Start 04/20/16 at 09:00; Stop 05/20/16 at 08:59 Magnesium Hydroxide (Milk Of Magnesia Susp) 30 ml Q12H PRN PO; Start 04/19/16 at 18:00; Stop 05/19/16 at 17:59 Miscellaneous (Iv Fluids Completed) 1 ea PRN PRN N/A; Start 04/19/16 at 18:30; Stop 04/19/17 at 18:29 Miscellaneous (Remove Nicoderm Patch) 1 ea HS N/A; Start 04/20/16 at 21:00; Stop 05/20/16 at 20:59 Miscellaneous Information (Pharmacist Discharge Med Rec Consult) 1 ea UD PRN N/ A; Start 04/19/16 at 18:00; Stop 05/19/16 at 17:59 Nicotine (Nicoderm Cq 21MG Patch) 1 patch QAM TD Last administered on 04/20/16 07:11; Admin Dose 1 PATCH; Start 04/20/16 at 09:00; Stop 05/20/16 at 08:59 Ondansetron HCl (Zofran Inj) 4 mg Q6H PRN IV; Start 04/19/16 at 18:00; Stop at 17:59 Polyethylene (Miralax Powder Packet) 17 gm DAILY PRN PO; Start 04/19/16 at 18:00 ; Stop 05/19/16 at 17:59 Zolpidem Tartrate (Ambien Tab) 5 mg HSZ PRN PO; Start 04/19/16 at 18:00; Stop at 17:59 Objective Vital Signs Date Time Temp Pulse Resp B/P Pulse Ox O2 Delivery O2 Flow Rate FiO2 04/20/16 11:23 Room Air 04/20/16 11:02 36.4 72 20 111/75 94 Room Air 04/20/16 08:00 Room Air 04/20/16 07:30 36.5 68 20 121/81 92 Room Air 04/20/16 04:12 36.4 62 17 129/78 94 Room Air 04/20/16 03:30 Room Air 04/19/16 23:30 36.6 67 21 102/66 92 Room Air 04/19/16 23:30 Room Air 04/19/16 19:30 36.9 76 17 122/85 94 Room Air 04/19/16 18:37 89 16 148/97 96 Room Air 04/19/16 17:09 72 20 124/84 97 Room Air 04/19/16 15:53 74 16 107/76 95 Room Air 04/19/16 13:58 72 20 149/90 94 Room Air Physical Exam Comments: nad, aox3, eomi, perrl, anicteric cn 2 -12 intact, no facial drooping/nasolabial folds intact, FROM in all extremities, minimal LLE weakness at best otherwise good strength in all extremities s1 s2 rrr, no murmurs appreciated, no carotid bruit, no JVD ctab no w/r/r abd soft ,nt nd +BS no cva tenderness, no suprapubic tend no LE edema Laboratory Results Last 24 Hours Test 04/19/16 21:50 04/20/16 05:36 04/20/16 11:15 Urine Color YELLOW Urine Appearance CLEAR Urine pH 5.0 Urine Specific [place] > 1.045 Urine Protein NEG Urine Glucose (UA) NEG Urine Ketones NEG Urine Occult Blood NEG Urine Nitrite NEG Urine Bilirubin NEG Urine Urobilinogen NEG Urine Leukocyte Esterase NEG White Blood Count 9.26 K/uL Red Blood Count 5.30 M/uL Hemoglobin 15.4 g/dL Hematocrit 45.5 % Mean Corpuscular Volume 85.8 fL Mean Corpuscular Hemoglobin 29.1 pg Mean Corpuscular Hemoglobin Concent 33.8 g/dl Platelet Count 223 K/uL Mean Platelet Volume 10.9 fL Neutrophils (%) (Auto) 36.5 % Lymphocytes (%) (Auto) 52.5 % Monocytes (%) (Auto) 7.2 % Eosinophils (%) (Auto) 2.6 % Basophils (%) (Auto) 0.8 % Neutrophils # (Auto) 3.38 K/uL Lymphocytes # (Auto) 4.86 K/uL Monocytes # (Auto) 0.67 K/uL Eosinophils # (Auto) 0.24 K/uL Basophils # (Auto) 0.07 K/uL RDW Standard Deviation 45.1 fL RDW Coefficient of Variation 14.3 % Immature Granulocyte % (Auto) 0.4 % Immature Granulocyte # (Auto) 0.04 K/uL Smudge Cells PRESENT Sodium Level 140 mmol/L Potassium Level 3.7 mmol/L Chloride Level 106 mmol/L Carbon Dioxide Level 23 mmol/L Anion Gap 11.0 mmol/L Blood Urea Nitrogen 9 mg/dl Creatinine 0.99 mg/dl Est Creatinine Clear Calc Drug Dose 114.9 ml/min Estimated GFR () 105.4 Estimated GFR (Non- 91.0 BUN/Creatinine Ratio 9.1 Random Glucose 91 mg/dl Calcium Level 8.2 mg/dl Triglycerides Level 278 mg/dl Cholesterol Level 193 mg/dl HDL Cholesterol 25 mg/dl LDL Cholesterol, Calculated 112 mg/dl VLDL Cholesterol, Calculated 56 mg/dl Cholesterol/HDL Ratio 7.7 Erythrocyte Sedimentation Rate 11 mm/hr Vitamin B12 Level 461 pg/mL Folate 6.28 ng/mL Lyme Disease IgG Antibody NEG Lyme Disease IgM Antibody NEG 2de Interpretation Summary * Name: AVA BERRY Study Date: 04/20/2016 07:45 AM BP: 129/78 mmHg * Patient Location: .2T\S\S232\S\1 HR: 62 * : 1970 (M/d/yyyy) Gender: Male Height: 70 in * Age: 45 yrs Ethnicity: CA Weight: 231 lb * Ordering Physician: Navarro Cota * Referring Physician: Self, Referred * Performed By: Santos Caceres RCS * * Reason For Study: CVA * BSA: 2.2 m2 * -- Conclusions -- * 1. Normal LV size and wall thickness. * 2. Normal LV systolic function. LVEF 50-55%. No regional wall motion abnormalities. * 3. Normal RV size and function. * 4. No significant valvular pathology. * 5. Compared with prior study on 08/01/2015: No significant changes. Assessment and Plan Labs reviewed. Imaging studies reviewed. Discussed with patient. Awaiting MRI of cervical spine. APpreciate neuro input.
[2016-04-20] MEDS ORDERED: GADAVIST IV PRN (21:45)
--- NOTE | 2016-04-20 23:35 | DIAGNOSTIC IMAGING REPORT ---
MRI OF THE BRACHIOPLEXUS COMBO CLINICAL HISTORY: Brachial neuritis. Right arm numbness. COMPARISON STUDY: CT scan of the neck dated 04/19/2016. TECHNIQUE: MRI of the brachial plexus is performed utilizing various T1 and T2-weighted sequences in the axial, sagittal, and coronal planes. Contrast-enhanced sequences were acquired following the IV administration of 10 cc of Gadavist. FINDINGS: The brachial plexus is normal in appearance bilaterally. No abnormal enhancement is identified on the postcontrast images. No mass lesion is seen. The regional musculature is normal in bulk and signal intensity. No cervical lymphadenopathy is seen. The visualized brain parenchyma is grossly unremarkable. The upper lobe lung parenchyma is normal as imaged but not well evaluated by MRI. A prominent lymph node is again seen in the superior mediastinum. IMPRESSION: Unremarkable MRI of the brachial plexus. Dictated: 04/20/2016 9:49 PM Transcribed: 04/20/2016 11:35 PM [email or web address] Electronically signed by: Silviano Richmond M.D. 04/21/2016 9:36 AM Dictated Date/Time: 04/20/2016 9:49 PM
--- NOTE | 2016-04-20 23:38 | DIAGNOSTIC IMAGING REPORT ---
MRI OF THE CERVICAL SPINE COMBO CLINICAL HISTORY: Cervical radiculopathy. Brachial neuritis. COMPARISON STUDY: CT scan of the neck dated 04/19/2016. TECHNIQUE: MRI of the cervical spine is performed utilizing various T1 and T2-weighted sequences in the axial and sagittal planes. Contrast-enhanced sequences were acquired following the IV administration of 10 cc of Gadavist. FINDINGS: Cervical spine: Vertebral body height and alignment are maintained throughout the cervical spine. Normal signal intensity is preserved throughout the visualized bony structures. There is straightening of the cervical lordosis with mild reversal centered at C5. The atlantodental articulation appears maintained. The spinous processes are intact. No destructive bony lesion is suspected. Intervertebral discs: There is mild degenerative disc desiccation seen throughout the cervical spine. The disc spaces are maintained. Spinal cord: The cervical spinal cord is normal in morphology and signal intensity. No abnormal enhancement is seen on the postcontrast images. C2-C3: Unremarkable. C3-C4: Mild facet arthropathy is of no consequence. The central canal and neural foramina are widely patent. C4-C5: Uncovertebral and facet arthropathy cause mild right neural foraminal stenosis. C5-C6: Uncovertebral and facet arthropathy cause moderate right and mild left neural foraminal stenosis. A small posterior disc osteophyte complex minimally effaces the ventral subarachnoid space. There is no significant central canal stenosis. C6-C7: Facet arthropathy is of no consequence. The central canal and neural foramina are patent. C7-T1: Unremarkable. Soft tissues: The prevertebral and paraspinous soft tissues are within normal limits. Brain parenchyma: Partially imaged brain parenchyma at the skull base is normal in appearance. Minimal mucosal thickening is seen in the maxillary antra. IMPRESSION: 1. The cervical spinal cord is normal in morphology and signal intensity. 2. Mild cervical spondylosis as detailed above. This is greatest at C5-C6. See discussion for detailed level by level analysis. Dictated: 04/20/2016 10:02 PM Transcribed: 04/20/2016 11:38 PM [email or web address] Electronically signed by: Silviano Richmond M.D. 04/20/2016 11:42 PM Dictated Date/Time: 04/20/2016 10:02 PM
[2016-04-21 03:30] VITALS: BP 110/77; PULSE 59; TEMP 36.5; O2SAT 94
[2016-04-21 05:51] LABS: BASO % 0.8 %; BASO ABS # 0.06 K/uL (0-0.2); COMPLETE YES; EOS % 3.1 %; HEMATOCRIT 45.8 % (42-52); IG% 0.3 %; LYMPH % 41.9 %; LYMPH ABS # 3.14 K/uL (1.2-3.4); MEAN CELL VOLUME 85.8 fL (80-100); MEAN CORPUSCULAR HGB CONC 33.8 g/dl (32-36); MEAN PLATELET VOLUME 11.2 fL (7.4-10.4); MONO % 7.7 %; NEUT % 46.2 %; PLATELET COUNT 219 K/uL (130-400); RED BLOOD COUNT 5.34 M/uL (4.7-6.1)
[2016-04-21 06:26] LABS: BUN/CREATININE RATIO 10.9 (10-20); CALCIUM 8.1 mg/dl (8.5-10.1); POTASSIUM 3.8 mmol/L (3.5-5.1)
[2016-04-21 08:00] VITALS: BP 108/70; PULSE 57; TEMP 36.5; O2SAT 97
[2016-04-21] MEDS: ATORVASTATIN 40 MG TAB PO SCH (08:11)
[2016-04-21] MEDS: LISINOPRIL 40 MG TAB PO SCH (08:11)
[2016-04-21] MEDS: CLOPIDOGREL BISULFATE 75 MG TAB PO SCH (08:12)
[2016-04-21] MEDS: AMLODIPINE BESYLATE 5 MG TAB PO SCH (08:12)
[2016-04-21] MEDS: HEPARIN SOD 5000 UNIT/0.5 ML CARP SQ SCH (08:12)
[2016-04-21] MEDS: NICOTINE 21 MG/24 HR TDSY TD SCH (08:13)
--- NOTE | 2016-04-21 09:14 | Neurology Progress Notes ---
Neurology Progress Note Date of Service Apr 21, 2016. Subjective Patient reports that pain in right hand has resolved. Still has numbness in all of the second through fifth fingers on the right hand. No additional new neurological symptoms. MRI of the neck reported images reviewed by myself and unremarkable. No signal change in the cord and no significant nerve impingement. MRI of the brachial plexus was also reviewed and unremarkable In addition MRI of the brain was reviewed and did not show any additional new strokes Objective Date Time Temp Pulse Resp B/P Pulse Ox O2 Delivery O2 Flow Rate FiO2 04/21/16 08:00 36.5 57 16 108/70 97 Room Air 04/21/16 08:00 Room Air 04/21/16 03:30 36.5 59 15 110/77 94 Room Air 04/21/16 03:30 94 Room Air 04/20/16 23:30 Room Air 04/20/16 23:15 36.4 72 15 105/70 97 Room Air 04/20/16 20:20 36.6 68 17 126/85 98 Room Air 04/20/16 20:00 95 Room Air 04/20/16 16:00 97 Room Air 04/20/16 15:26 36.6 61 20 132/70 97 Room Air 04/20/16 11:23 Room Air 04/20/16 11:02 36.4 72 20 111/75 94 Room Air Last 24 Hours Test 04/20/16 11:15 04/21/16 05:25 Erythrocyte Sedimentation Rate 11 mm/hr Vitamin B12 Level 461 pg/mL Folate 6.28 ng/mL Lyme Disease IgG Antibody NEG Lyme Disease IgM Antibody NEG White Blood Count 7.50 K/uL Red Blood Count 5.34 M/uL Hemoglobin 15.5 g/dL Hematocrit 45.8 % Mean Corpuscular Volume 85.8 fL Mean Corpuscular Hemoglobin 29.0 pg Mean Corpuscular Hemoglobin Concent 33.8 g/dl Platelet Count 219 K/uL Mean Platelet Volume 11.2 fL Neutrophils (%) (Auto) 46.2 % Lymphocytes (%) (Auto) 41.9 % Monocytes (%) (Auto) 7.7 % Eosinophils (%) (Auto) 3.1 % Basophils (%) (Auto) 0.8 % Neutrophils # (Auto) 3.47 K/uL Lymphocytes # (Auto) 3.14 K/uL Monocytes # (Auto) 0.58 K/uL Eosinophils # (Auto) 0.23 K/uL Basophils # (Auto) 0.06 K/uL RDW Standard Deviation 43.7 fL RDW Coefficient of Variation 14.0 % Immature Granulocyte % (Auto) 0.3 % Immature Granulocyte # (Auto) 0.02 K/uL Sodium Level 140 mmol/L Potassium Level 3.8 mmol/L Chloride Level 106 mmol/L Carbon Dioxide Level 25 mmol/L Anion Gap 9.0 mmol/L Blood Urea Nitrogen 11 mg/dl Creatinine 1.00 mg/dl Est Creatinine Clear Calc Drug Dose 112.6 ml/min Estimated GFR () 104.1 Estimated GFR (Non- 89.9 BUN/Creatinine Ratio 10.9 Random Glucose 85 mg/dl Calcium Level 8.1 mg/dl Exam: Patient was alert and oriented to person place and time. Able to give his own history. HEENT: No cephalic atraumatic scleral icterus Despite the patient reporting some numbness in the second through fifth finger on the right, on formal testing reported that sensation was fairly equal between hands. Had some decreased sensation in the right lateral palm compared to the left. Otherwise sensation intact in bilateral upper extremities. Current Inpatient Medications Medications (Trade) Dose Ordered Sig/Giselle Route Start Time Stop Time Status Last Admin Dose Admin Ioversol (Optiray 320) 125 ml UD PRN IV 04/19/16 14:30 04/23/16 14:29 Miscellaneous Information (Pharmacist Discharge Med Rec Consult) 1 ea UD PRN N/A 04/19/16 18:00 05/19/16 17:59 Heparin Sodium (Porcine) (Heparin Sq 5000 Unit/0.5ml) 5,000 unit Q12 SQ 04/19/16 21:00 05/19/16 20:59 04/20/16 09:22 5,000 UNIT Acetaminophen (Tylenol Tab) 650 mg Q4H PRN PO 04/19/16 18:00 05/19/16 17:59 04/20/16 22:21 650 MG Al Hydrox/Mg Hydrox/Simethicone (Maalox Max Susp) 15 ml Q4H PRN PO 04/19/16 18:00 05/19/16 17:59 Magnesium Hydroxide (Milk Of Magnesia Susp) 30 ml Q12H PRN PO 04/19/16 18:00 05/19/16 17:59 Zolpidem Tartrate (Ambien Tab) 5 mg HSZ PRN PO 04/19/16 18:00 05/19/16 17:59 Ondansetron HCl (Zofran Inj) 4 mg Q6H PRN IV 04/19/16 18:00 05/19/16 17:59 Polyethylene (Miralax Powder Packet) 17 gm DAILY PRN PO 04/19/16 18:00 05/19/16 17:59 Amlodipine Besylate (Norvasc Tab) 10 mg DAILY PO 04/20/16 09:00 05/20/16 08:59 04/21/16 08:12 10 MG Atorvastatin Calcium (Lipitor Tab) 80 mg QAM PO 04/20/16 09:00 05/20/16 08:59 04/21/16 08:11 80 MG Clopidogrel Bisulfate (plAVix TAB) 75 mg QAM PO 04/20/16 09:00 05/20/16 08:59 04/21/16 08:12 75 MG Lisinopril (Zestril Tab) 40 mg DAILY PO 04/20/16 09:00 05/20/16 08:59 04/21/16 08:11 40 MG Miscellaneous (Iv Fluids Completed) 1 ea PRN PRN N/A 04/19/16 18:30 04/19/17 18:29 Gadobutrol (Gadavist) 10 mmol UD PRN IV 04/19/16 21:15 04/23/16 21:14 Nicotine (Nicoderm Cq 21MG Patch) 1 patch QAM TD 04/20/16 09:00 05/20/16 08:59 04/21/16 08:13 1 PATCH Miscellaneous (Remove Nicoderm Patch) 1 ea HS N/A 04/20/16 21:00 05/20/16 20:59 04/20/16 22:19 1 EA Gadobutrol (Gadavist) 10 mmol UD PRN IV 04/20/16 21:45 04/24/16 21:44 Impression This is a 45-year-old male who presents with resolved burning pain of the right hand, with residual numbness of the distal second through fifth fingers on the right hand. No signs of acute stroke, cervical lesion, or brachial plexus lesion. Potentially could be peripheral neuropathy or polyneuropathy. Plan No additional neurological recommendations at this time. Recommend the patient follow-up in neurology clinic in 1-2 months for reevaluation. Discussed with the patient that if he continues to have symptoms after 6 weeks, would likely recommend EMG/nerve conduction study of the right upper extremity for further evaluation. If any new strokelike symptoms, should return to the emergency room for evaluation. Thank you for allowing me to participate in this patient's care. If there is any questions or concerns, feel free to call/patient me.
[2016-04-21 11:46] VITALS: BP 103/63; PULSE 56; TEMP 36.4; O2SAT 96
--- NOTE | 2016-04-21 12:03 | Progress Note ---
Subjective Date of Service: Apr 21, 2016. Subjective Pt evaluation today including: conversation w/ patient, physical exam, lab review, review of studies, conversation w/ dairy feed sales consultant, review of inpatient medication list On tele, sinus pauses 3 -4 seconds while sleeping. Asymptomatic episodes. No chest pain, no sob. Otherwise, feeling well. He does admit to snoring while sleeping but unsure of apneic episodes. Problem List Medical Problems: (1) History of CVA (cerebrovascular accident) Status: Acute (2) Left arm numbness Status: Acute (3) Left arm weakness Status: Acute (4) Numbness of right hand Status: Acute Review of Systems All Other Systems: Reviewed and Negative Medications Acetaminophen (Tylenol Tab) 650 mg Q4H PRN PO Last administered on 04/20/16 22 :21; Admin Dose 650 MG; Start 04/19/16 at 18:00; Stop 05/19/16 at 17:59 Al Hydrox/Mg Hydrox/Simethicone (Maalox Max Susp) 15 ml Q4H PRN PO; Start at 18:00; Stop 05/19/16 at 17:59 Amlodipine Besylate (Norvasc Tab) 10 mg DAILY PO Last administered on 04/21/16 08:12; Admin Dose 10 MG; Start 04/20/16 at 09:00; Stop 05/20/16 at 08:59 Atorvastatin Calcium (Lipitor Tab) 80 mg QAM PO Last administered on 04/21/16 08 :11; Admin Dose 80 MG; Start 04/20/16 at 09:00; Stop 05/20/16 at 08:59 Clopidogrel Bisulfate (plAVix TAB) 75 mg QAM PO Last administered on 04/21/16 08 :12; Admin Dose 75 MG; Start 04/20/16 at 09:00; Stop 05/20/16 at 08:59 Gadobutrol (Gadavist) 10 mmol UD PRN IV; Start 04/19/16 at 21:15; Stop 04/23/16 at 21:14 Gadobutrol (Gadavist) 10 mmol UD PRN IV; Start 04/20/16 at 21:45; Stop 04/24/16 at 21:44 Heparin Sodium (Porcine) (Heparin Sq 5000 Unit/0.5ml) 5,000 unit Q12 SQ Last administered on 04/20/16 09:22; Admin Dose 5,000 UNIT; Start 04/19/16 at 21:00; Stop 05/19/16 at 20:59 Ioversol (Optiray 320) 125 ml UD PRN IV; Start 04/19/16 at 14:30; Stop 04/23/16 at 14:29 Lisinopril (Zestril Tab) 40 mg DAILY PO Last administered on 04/21/16 08:11; Admin Dose 40 MG; Start 04/20/16 at 09:00; Stop 05/20/16 at 08:59 Magnesium Hydroxide (Milk Of Magnesia Susp) 30 ml Q12H PRN PO; Start 04/19/16 at 18:00; Stop 05/19/16 at 17:59 Miscellaneous (Iv Fluids Completed) 1 ea PRN PRN N/A; Start 04/19/16 at 18:30; Stop 04/19/17 at 18:29 Miscellaneous (Remove Nicoderm Patch) 1 ea HS N/A Last administered on 04/20/16 22:19; Admin Dose 1 EA; Start 04/20/16 at 21:00; Stop 05/20/16 at 20:59 Miscellaneous Information (Pharmacist Discharge Med Rec Consult) 1 ea UD PRN N/ A; Start 04/19/16 at 18:00; Stop 05/19/16 at 17:59 Nicotine (Nicoderm Cq 21MG Patch) 1 patch QAM TD Last administered on 04/21/16 08:13; Admin Dose 1 PATCH; Start 04/20/16 at 09:00; Stop 05/20/16 at 08:59 Ondansetron HCl (Zofran Inj) 4 mg Q6H PRN IV; Start 04/19/16 at 18:00; Stop at 17:59 Polyethylene (Miralax Powder Packet) 17 gm DAILY PRN PO; Start 04/19/16 at 18:00 ; Stop 05/19/16 at 17:59 Zolpidem Tartrate (Ambien Tab) 5 mg HSZ PRN PO; Start 04/19/16 at 18:00; Stop at 17:59 Objective Vital Signs Date Time Temp Pulse Resp B/P Pulse Ox O2 Delivery O2 Flow Rate FiO2 04/21/16 11:46 36.4 56 16 103/63 96 Room Air 04/21/16 08:00 36.5 57 16 108/70 97 Room Air 04/21/16 08:00 Room Air 04/21/16 03:30 36.5 59 15 110/77 94 Room Air 04/21/16 03:30 94 Room Air 04/20/16 23:30 Room Air 04/20/16 23:15 36.4 72 15 105/70 97 Room Air 04/20/16 20:20 36.6 68 17 126/85 98 Room Air 04/20/16 20:00 95 Room Air 04/20/16 16:00 97 Room Air 04/20/16 15:26 36.6 61 20 132/70 97 Room Air Physical Exam Comments: nad, aox3, eomi, perrl, anicteric s1 s2 rrr, no murmurs appreciated ctab no w/r/r abd soft nt/nd +BS no LE edema no changes in neuro exam Laboratory Results Last 24 Hours Test 04/21/16 05:25 White Blood Count 7.50 K/uL Red Blood Count 5.34 M/uL Hemoglobin 15.5 g/dL Hematocrit 45.8 % Mean Corpuscular Volume 85.8 fL Mean Corpuscular Hemoglobin 29.0 pg Mean Corpuscular Hemoglobin Concent 33.8 g/dl Platelet Count 219 K/uL Mean Platelet Volume 11.2 fL Neutrophils (%) (Auto) 46.2 % Lymphocytes (%) (Auto) 41.9 % Monocytes (%) (Auto) 7.7 % Eosinophils (%) (Auto) 3.1 % Basophils (%) (Auto) 0.8 % Neutrophils # (Auto) 3.47 K/uL Lymphocytes # (Auto) 3.14 K/uL Monocytes # (Auto) 0.58 K/uL Eosinophils # (Auto) 0.23 K/uL Basophils # (Auto) 0.06 K/uL RDW Standard Deviation 43.7 fL RDW Coefficient of Variation 14.0 % Immature Granulocyte % (Auto) 0.3 % Immature Granulocyte # (Auto) 0.02 K/uL Sodium Level 140 mmol/L Potassium Level 3.8 mmol/L Chloride Level 106 mmol/L Carbon Dioxide Level 25 mmol/L Anion Gap 9.0 mmol/L Blood Urea Nitrogen 11 mg/dl Creatinine 1.00 mg/dl Est Creatinine Clear Calc Drug Dose 112.6 ml/min Estimated GFR () 104.1 Estimated GFR (Non- 89.9 BUN/Creatinine Ratio 10.9 Random Glucose 85 mg/dl Calcium Level 8.1 mg/dl Assessment and Plan 1. Right arm weakness - likely peripheral nerve etiology - will need to f/u with neuro in a few weeks - no acute CVA/TIA - MRI/CTs have been unchanged and unremarkable 2. Sinus pauses - likely ANA LAURA - cardio consulted, appreciate recs - no further cardio intervention - will likely need sleep study as outpatient, patient verbalized understanding 3. recurrent CVA - 2de without any e/o thrombus - no SARA indicated - will cont plavix, statin 4. smoking - nicotine patches 5. htn - cont amlodipine and lisinopril - BP acceptable
[2016-04-21] MEDS ORDERED: NCDT21 TD (15:37)
--- NOTE | 2016-04-21 15:38 | Discharge Instructions ---
Discharge Instructions Admission Reason for Admission: Possible Cva Discharge Discharge Diagnosis / Problem: stable for home Discharge Goals Goal(s): Decrease discomfort, Improve disease control Activity Recommendations Activity Limitations: resume your previous activity . Current Hospital Diet Patient's current hospital diet: AHA Diet (Heart Healthy), Low Fat Diet Discharge Diet Recommended Diet: AHA Diet (Heart Healthy) Pending Studies Studies pending at discharge: no Laboratory Results Hemoglobin A1c Test 04/19/16 12:35 Range/Units Estimated Average Glucose 123 mg/dl Hemoglobin A1c 5.9 H 4.5-5.6 % Lipid Panel Test 04/20/16 05:36 Range/Units Triglycerides Level 278 H 0-150 mg/dl Cholesterol Level 193 0-200 mg/dl HDL Cholesterol 25 mg/dl Cholesterol/HDL Ratio 7.7 LDL Cholesterol, Calculated 112 mg/dl Medical Emergencies . Who to Call and When: Medical Emergencies: If at any time you feel your situation is an emergency, please call 911 immediately. . Non-Emergent Contact Non-Emergency issues call your: Primary Care Provider, Neurologist . . "Provider Documentation" section prepared by Crystal Polo. VTE Core Measure Inpt VTE Proph given/why not?: Unfractionated heparin SQ, SCD's
--- NOTE | 2016-04-21 15:52 | Discharge Summary ---
Discharge Summary Date of Service Apr 21, 2016. Discharge Summary Admission Date: Apr 19, 2016 at 17:55 Discharge Date: Apr 21, 2016 Discharge Disposition: Home Principal Diagnosis: right arm weakness Procedures: MRI OF THE BRAIN WITHOUT AND WITH IV CONTRAST CLINICAL HISTORY: Possible cerebrovascular accident. Tingling and numbness in fingers. Previous stroke. COMPARISON STUDY: MRI of the brain August 01, 2015 and CTA and CTA of the head April 19, 2016. TECHNIQUE: Utilizing a 1.5 Dayanara magnet and dedicated coil, multiplanar, multiecho imaging of the brain was performed pre and postcontrast administration. IV administration of 10 mL of Gadavist contrast was uneventful. FINDINGS: There are no areas of restricted diffusion. No acute intracranial hemorrhage, midline shift or mass effect is present. Brain volume is normal. Ventricular system is normal. Basilar cisterns are patent. There are no extra-axial collections. Flow-voids for the major intracranial vessels are present. Multiple old infarcts are noted within the right cerebral hemisphere as well as within the right cerebellar hemisphere. No intracranial mass or pathologic enhancement is present. There is mild mucosal thickening of the sinuses. Orbits are unremarkable. IMPRESSION: 1. No acute intracranial findings. 2. Multiple old infarcts within the right cerebral and cerebellar hemispheres. 3. No intracranial masses. Electronically signed by: Anthony Hudson M.D. 04/19/2016 9:16 PM MRI OF THE CERVICAL SPINE COMBO CLINICAL HISTORY: Cervical radiculopathy. Brachial neuritis. COMPARISON STUDY: CT scan of the neck dated 04/19/2016. TECHNIQUE: MRI of the cervical spine is performed utilizing various T1 and T2-weighted sequences in the axial and sagittal planes. Contrast-enhanced sequences were acquired following the IV administration of 10 cc of Gadavist. FINDINGS: Cervical spine: Vertebral body height and alignment are maintained throughout the cervical spine. Normal signal intensity is preserved throughout the visualized bony structures. There is straightening of the cervical lordosis with mild reversal centered at C5. The atlantodental articulation appears maintained. The spinous processes are intact. No destructive bony lesion is suspected. Intervertebral discs: There is mild degenerative disc desiccation seen throughout the cervical spine. The disc spaces are maintained. Spinal cord: The cervical spinal cord is normal in morphology and signal intensity. No abnormal enhancement is seen on the postcontrast images. C2-C3: Unremarkable. C3-C4: Mild facet arthropathy is of no consequence. The central canal and neural foramina are widely patent. C4-C5: Uncovertebral and facet arthropathy cause mild right neural foraminal stenosis. C5-C6: Uncovertebral and facet arthropathy cause moderate right and mild left neural foraminal stenosis. A small posterior disc osteophyte complex minimally effaces the ventral subarachnoid space. There is no significant central canal stenosis. C6-C7: Facet arthropathy is of no consequence. The central canal and neural foramina are patent. C7-T1: Unremarkable. Soft tissues: The prevertebral and paraspinous soft tissues are within normal limits. Brain parenchyma: Partially imaged brain parenchyma at the skull base is normal in appearance. Minimal mucosal thickening is seen in the maxillary antra. IMPRESSION: 1. The cervical spinal cord is normal in morphology and signal intensity. 2. Mild cervical spondylosis as detailed above. This is greatest at C5-C6. See discussion for detailed level by level analysis. Dictated: 04/20/2016 10:02 PM Transcribed: 04/20/2016 11:38 PM SHAW_Nadia MRI OF THE BRACHIOPLEXUS COMBO CLINICAL HISTORY: Brachial neuritis. Right arm numbness. COMPARISON STUDY: CT scan of the neck dated 04/19/2016. TECHNIQUE: MRI of the brachial plexus is performed utilizing various T1 and T2-weighted sequences in the axial, sagittal, and coronal planes. Contrast-enhanced sequences were acquired following the IV administration of 10 cc of Gadavist. FINDINGS: The brachial plexus is normal in appearance bilaterally. No abnormal enhancement is identified on the postcontrast images. No mass lesion is seen. The regional musculature is normal in bulk and signal intensity. No cervical lymphadenopathy is seen. The visualized brain parenchyma is grossly unremarkable. The upper lobe lung parenchyma is normal as imaged but not well evaluated by MRI. A prominent lymph node is again seen in the superior mediastinum. IMPRESSION: Unremarkable MRI of the brachial plexus. Dictated: 04/20/2016 9:49 PM Transcribed: 04/20/2016 11:35 PM [place] Electronically signed by: Silviano Richmond M.D. 04/21/2016 9:36 AM Interpretation Summary * Name: AVA BERRY Study Date: 04/20/2016 07:45 AM BP: 129/78 mmHg * Patient Location: C.2T\S\S232\S\1 HR: 62 * : 1970 (M/d/yyyy) Gender: Male Height: 70 in * Age: 45 yrs Ethnicity: CA Weight: 231 lb * Ordering Physician: Navarro Cota * Referring Physician: Self, Referred * Performed By: Santos Caceres RCS * * Reason For Study: CVA * BSA: 2.2 m2 * -- Conclusions -- * 1. Normal LV size and wall thickness. * 2. Normal LV systolic function. LVEF 50-55%. No regional wall motion abnormalities. * 3. Normal RV size and function. * 4. No significant valvular pathology. * 5. Compared with prior study on 08/01/2015: No significant changes. Medication Reconciliation New Medications: Nicotine (Nicotine) 1 Patch Tdsy 1 PATCH TD QAM for 14 Days Continued Medications: Amlodipine (Norvasc) 10 Mg Tab 10 MG PO DAILY, TAB Atorvastatin (Atorvastatin Calcium) 40 Mg Tab 80 MG PO QAM, #60 TAB 3 Refills Clopidogrel Bisulfate (Clopidogrel) 75 Mg Tab 75 MG PO QAM, #30 TAB 5 Refills Lisinopril (Zestril) 40 Mg Tab 40 MG PO DAILY, TAB Hospital Course The patient is a 45-year-old white male with a significant past medical history of CVA, ischemic stroke 2 years ago, hypertension and dyslipidemia, coming to the hospital Emergency Department because of the above chief complaint. He reports the right fingertips numbness started this morning about 4 hours ago around 10:00 a.m. The patient stated the fingertips are not numb anymore and just really tender. 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 this morning. He woke up around 10:00 a.m. this morning with numbness in his right fingertips. He stated that last night at around 2200, he experienced burning in his right hand, but it resolved. The patient also stated that even since last night he has been having increased thirst because of which the mouth always feels dry. In the Emergency Room, evaluation of labs was not remarkable except WBC which was 15,000. The ED physician had a head CTA and CTA of the neck which only shows remote right hemispheric infarction. Otherwise, not remarkable. I was called for possible admission of the patient. When I interviewed the patient he is awake, alert, orientated, pleasant, conversational, follows all commands and speaks in full sentences. He did report that when he checked himself in the mirror this morning had possible right facial droop, but not anymore. On admission, CT was done and was negative for bleed. MRI was also performed as above. No acute CVA on imaging studies. Neurology evaluation was also sought but no further inpatient intervention will be required after MRI of cervical spine and brachial plexus were done as above. He will need to f/u with neuro for possible EMG/nerve conduction testing as outpt. On tele, he also had a few sinus pauses up to 4 seconds while sleeping. No bblockers of [facility] on board. Cardiology evaluation sought but no further cardio work-up or recs were offered other than outpatient sleep study. 1. Right arm weakness - likely peripheral nerve etiology - will need to f/u with neuro in a few weeks - no acute CVA/TIA - MRI/CTs have been unchanged and unremarkable - EMG/never conduction testing possibly as outpatient 2. Sinus pauses - likely ANA LAURA - cardio consulted, appreciate recs - no further cardio intervention - will likely need sleep study as outpatient, patient verbalized understanding 3. recurrent CVA - 2de without any e/o thrombus - no SARA indicated - will cont plavix, statin 4. smoking - nicotine patches 5. htn - cont amlodipine and lisinopril - BP acceptable Total Time Spent: Greater than 30 minutes This includes examination of the patient, discharge planning, medication reconciliation, and communication with other providers. Discharge Instructions Please refer to the electronic Patient Visit Report (Discharge Instructions) for additional information. Additional Copies To Calvin Baker M.D.
[2016-04-21 16:26] VITALS: BP 101/68; PULSE 77; TEMP 36.6; O2SAT 95
--- NOTE | 2016-04-21 19:58 | CARDIOLOGY CONSULTATION ---
DATE OF CONSULTATION: 04/21/2016 CHIEF COMPLAINT: Bradycardia. HISTORY OF PRESENT ILLNESS: Mr. Chano Reese is a 45-year-old gentleman without a history of syncope, who was admitted with neurologic symptoms. The patient reportedly was having some paresthesias in the right hand and was admitted for concerns over a cerebrovascular event. He has had a reported stroke in the past. During this admission, the patient was placed on telemetry, he was noted to have periods of significant sinus bradycardia and sinus pauses up to 4 seconds in duration. The patient claims he is feeling well currently. His neurologic symptoms appear to have resolved. 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 His job entails element of heavy activity including ascending stairs and walking extensively. He denies symptoms associated with activities such as chest discomfort limiting dyspnea, dizziness, lightheadedness, or palpitations. He states that he does have occasional fleeting chest pains which feel like an electric residence life coordinator his chest, these lasts for several seconds and did not appear to be associated with any particular activity, they are quite random in nature and have not changed in pattern recently. He is not aware of any palpitations at home. He is not generally aware of any dizziness with the exception of acute changes in position, from sitting to standing. He has not suffered a syncopal episode. In general, the patient's only concern other than the right hand symptoms are marked fatigue. He states that he falls asleep quite easily. If he is sitting down to watch TV is likely to fall asleep. He feels that he is sleeping more than he has in the past. PAST MEDICAL HISTORY: 1. Hypertension. 2. Hyperlipidemia. 3. Cerebrovascular accident of unclear etiology. PAST SURGICAL HISTORY: None. OUTPATIENT MEDICATIONS: Include amlodipine 10 mg daily, atorvastatin 80 mg daily, clopidogrel 75 mg daily, and lisinopril 40 mg daily. MEDICAL ALLERGIES: No known medical allergy. FAMILY HISTORY: No premature coronary disease, otherwise noncontributory. 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 He denies significant alcohol abuse. REVIEW OF SYSTEMS: A complete 10 system review of systems was performed and the pertinent positives noted in the history of present illness including his increasing somnolence and history of snoring. He does have occasional headaches, perhaps more frequent recently. He denies a development of lower extremity edema. He denies any orthopnea or paroxysmal nocturnal dyspnea. He has not had any rashes recently. PHYSICAL EXAMINATION: GENERAL: The patient did not appear to have any acute distress. He is a pleasant individual who is alert and oriented. His mood and affect appear normal. he answered all questions appropriately. CURRENT VITAL SIGNS: Include blood pressure 101/68 with a pulse of 77. HEENT: Sclerae are anicteric. Pupils equal and react to light and accommodation. Extraocular movements were intact. NECK: Palpation of the submandibular region not revealed any significant lymphadenopathy. The carotids are palpable bilaterally. There are no bruits on auscultation. I did not appreciate any jugular venous distention. The thyroid is not enlarged. LUNGS: Auscultation both lung to reveal to be clear, good air movement. There were no rales, wheezes, or rhonchi. Good respiratory effort without use of accessory muscles. CARDIAC: Reveals to be in a regular rhythm. S1 and S2 were normal. He did not have any murmurs. The PMI was not markedly displaced. ABDOMEN: Soft and nontender. EXTREMITIES: Evaluation of both wrists reveal radial pulses are equal in intensity. There is no evidence of cyanosis or clubbing. Evaluation of lower extremities did not reveal any significant peripheral edema and do not appreciate any rashes on examination today. LABORATORY STUDIES: Obtained today include a white cell count of 7.5, hemoglobin of 15.5, a platelet count of 219. Sodium is 140, potassium is 3.8, creatinine was 1, BUN was 11. DATA: He has an echocardiogram obtained on 04/19/2012, which revealed preserved left ventricular systolic function. No evidence of valvular disease. A prior echocardiogram had also been obtained at the time of his initial CVA and this included a bubble study. There was no evidence of PFO or ASD on that study. I reviewed the patient's EKG during this admission including the source images. EKGs were normal. I reviewed the patient's telemetry including source images, this did reveal occasional periods of sinus bradycardia and sinus arrest with pauses up to 3-4 seconds in duration, one of which occurred at 11:00 a.m. today. ASSESSMENT AND PLAN: 1. Asymptomatic sinus node dysfunction. This is likely physiologic in nature. Most of the patient's episodes of bradycardia occurred while sleeping including the one which occurred at 11:00 a.m. today. The patient does report dozing throughout the course of the morning and this likely occurred during a period of sleep. Given his history and telemetry finding, it is very possible that the patient suffers from obstructive sleep apnea. He has been advised to consider a sleep study in the past and this could be readdressed. Given the asymptomatic nature of his bradycardia, the absence of any suggestion of symptoms on history and the likely association with sleep apnea or simply sleeping, do not feel that any additional workup is necessary. This is likely on a physiologic phenomenon. His echocardiogram is normal, which also puts him in the category of patients with good prognosis overall.
[2016-04-25 23:33] LABS: MYELOPEROXIDASE AB <1.0 AI (<1.0)
== END 2016-04-21 18:46 | disposition home or self-care (01) ==
LOC: ENRESERVDT → ENRESERVTM → EDBD 12:06 → C.EDB 12:08 → C.2T 17:55
PROVIDERS: ADMIT Hospitalist; ATTEND Hospitalist
DX: R53.1 Weakness (principal); I45.5 Other specified heart block; I10 Essential (primary) hypertension; E78.5 Hyperlipidemia, unspecified; F17.210 Nicotine dependence, cigarettes, uncomplicated; Z86.73 Personal history of transient ischemic attack (TIA), and cerebral infarction without residual deficits; Z83.3 Family history of diabetes mellitus; Z82.49 Family history of ischemic heart disease and other diseases of the circulatory system; Z79.899 Other long term (current) drug therapy

== ENCOUNTER → 2016-06-28 | Outpatient (CLI) | payer BC ==
[~2016-06-28] MED LIST changes: -ASPI81TA28 PO; +NCDT21 TD
[2016-06-28 13:59] LABS: ALT/SGPT 26 U/L (12-78); AST/SGOT 14 U/L (15-37); BLOOD UREA NITROGEN 14 mg/dl (7-18); BUN/CREATININE RATIO 13.5 (10-20); CALCIUM 8.4 mg/dl (8.5-10.1); CARBON DIOXIDE 24 mmol/L (21-32); CHLORIDE 103 mmol/L (98-107); GLUCOSE 99 mg/dl (70-99); POTASSIUM 3.6 mmol/L (3.5-5.1); SODIUM 135 mmol/L (136-145)
[2016-06-28 14:05] LABS: ALB/GLOB RATIO 0.9 (0.9-2); ALKALINE PHOSPHATASE 128 U/L (45-117); CHOLESTEROL 129 mg/dl (0-200); CHOLESTEROL/HDL RATIO 4.2; HDL CHOLESTEROL 31 mg/dl; LDL CHOLESTEROL CALCULATED 71 mg/dl; PROSTATE SPECIFIC ANTIGEN 0.498 ng/ml (0.000-4.000); TRIGLYCERIDES 134 mg/dl (0-150); VERY LOW DENSITY LIPOPROT CALC 27 mg/dl
--- NOTE | 2016-07-03 10:53 | CODING QUERY MEDICAL NECESSITY ---
CQSUPPORTING DIAGNOSIS NEEDED A supporting diagnosis is required for the test/procedure performed on this patient in order for us to be reimbursed by the patient's insurance. Please provide a supporting diagnosis for the following test/procedure listed below next to the test name along with your signature. *If there is no additional diagnosis for this patient that would support the following test/procedure please document that below next to the test/procedure. Test(s)/Procedure(s) that require a supporting diagnosis: DOS 06/28/16 PROSTATE SPECIFIC (PSA) TEST Provider Signature: Date: Thank you Miryam Doyle Health Information Management Once completed, please kindly fax back to [phone] For questions please call [phone]
== END | disposition home or self-care (01) ==
LOC: C.LABPBG 07:42
PROVIDERS: ATTEND Neuromusculoskeletal Medicine & OMM
DX: Z00.00 Encounter for general adult medical examination without abnormal findings (principal); Z12.5 Encounter for screening for malignant neoplasm of prostate

== ENCOUNTER → 2016-08-01 | Outpatient (CLI) | payer BC ==
--- NOTE | 2016-08-02 06:47 | PAP/PSG TECHNICIAN REPORT ---
[facility] Coffee Supervisor Polysomnogram Report Study name: None Report date: 08/02/2016 Study date: 08/01/2016 Referring Physician: DR.PHILIPP MARGARITA D.O. Name: AVA BERRY Interpreting Physician: Kobi Walker M.D. Date of : 1970 Coffee Supervisor: Lilia Marquez, PSGT. Sex: Male Age: 45 StudyType: PSG Weight: 227 lbs Height: 45 years, Height 5' 11" BMI: 31.66 Medications: PLAVIX 75 MG, ATROVASTATIN 80 MG, NORAVAS 10 MG, ZESTRIL 40 MG. Patient History 45 YR. OLD MALE IN ROOM 5, PRESENTS WITH POST ACUTE ISCHEMIC STROKE. PT. STATES THAT HE WAS TOLD IN THE HOSPITAL TWICE THAT HE STOPS BREATHING DURING SLEEP. 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 Parameters Monitored NPSG: E1-M2, E2-M1, Fp1-M2, Fp2-M1, F3-M2, F4-M2, F4-M1, C3-M2, C4-M2, C4-M1, O1-M2, O2-M2, O2-M1, T3-M2, T4-M1, P3-M2, P4-M1, CHIN1, CHIN2, HR, EKG, Legs, PFLOW, SNOR, FLOW, CFLOW, Tidal Volume, THOR, ABDO, SpO2, PLTH, CPRESS, ETCO2 Wave, ETCO2, pH Sleep Architecture Sleep Stages Time at Lights Off 9:59:05 PM STAGES Time (min.) TST (%) Time at Lights On 5:33:05 AM Wake 272.5 -- Total Recording Time (TRT) 455.00 min. N1 25.0 14 Total Sleep Period (TSP) 436.5 min. N2 140.5 77 Total Sleep Time (TST) 181.5min. N3 0.0 0 Awake Time 272.5 min. REM 16.0 9 Wake after Sleep Onset 255.0 min. Sleep Efficiency (SE) 40 % Sleep Onset Latency (SHAYNA) 17.5 min. Number of Stage 1 Shifts None Awakenings 4 Stage Changes 18 Number of REM periods 1 REM 16.0 9 REM Latency 394.5 min. NREM 165.5 91 Body Position Analysis Supine Right Left Side Prone Vertical Total Sleep Time (min.) 31.0 93.5 86.8 180.34 0.0 0.3 Total Sleep Time (%) 1% 52% 48% 99 0% N/A% Total Sleep Time REM (min.) 0.0 16.0 0.0 None 0.0 0.0 Total Sleep Time NREM (min.) 1.2 77.5 86.8 None 0.0 0.0 Intermittent Wake (min.) 29.8 59.6 182.8 None 0.0 0.3 Total Sleep Period (%) 5% None None None None None Arousals Myoclonus (PLM) * Events Count Index Events Count Index Spontaneous 18 6 Events Awake (PLMW) 1 0.2 Respiratory 0 0.0 Events Asleep w/ Arousal (PLMA) 20 6.6 PLM 20 7 Events Asleep w/o Arousal (PLMS) 255 84.3 Snoring 2 1 Total Asleep 275 90.9 Total 40 13 Total 276 36 Respiratory Analysis * CA OA MA CH H RERA Total Count 1 0 0 0 0 0 1 Index 0.3 0.0 0.0 0 0.0 0 0.3 Mean Duration 13.1 0.0 0.0 0.00 0.0 0.0 13.1 Longest Duration 13.1 0.0 0.0 0.00 0.0 0.0 13.1 Respiratory Event Summary Total Supine ~Supine Right Left Prone REM NREM Apneas Count 1 0 1 1 0 N/A 1 0 Index 0.3 0 0 0.6 0.0 N/A 4 0 Hypopneas (4% Desat) Count 0 0 0 0 0 N/A 0 0 Index 0.0 0.0 0 0.0 0.0 N/A 0.0 0.0 Apneas & All Hypopneas Count 1 0 1 1 0 N/A 1 0 Index 0.3 0 0 1 0 N/A 3.8 0.0 Respiratory Events (Boiler Coverer Helper+All Hyp+RERA) Count 1 0 1 1 0 N/A 1 0 Index 0.3 0 0 0.6 0.0 N/A 3.8 0.0 Respiratory Related Arousal Count 0 0 0 0 0 N/A 0 0 Index 0.0 0 0 0 0 N/A 0 0 Snoring Analysis Supine Right Left Prone REM NREM Total Snore duration 5.9 min Snores count 0 111 148 N/A 44 215 259 Snore mean duration 1.4 Sec Snores index 0 71 102 N/A 165.0 77.9 85.6 TST with snoring (%) 3.3% SpO2 Analysis Total REM NREM Awake <50% 0.0 min. 0.0 min. 0.0 min. 0.0 min. 51 - 60% 0.0 min. 0.0 min. 0.0 min. 0.0 min. 61 - 70% 0.0 min. 0.0 min. 0.0 min. 0.0 min. 71 - 80% 0.0 min. 0.0 min. 0.0 min. 0.0 min. 81 - 90% 134.5 min. 2.9 min. 76.5 min. 55.2 min. 91 - 100% 292.1 min. 12.9 min. 82.3 min. 196.8 min. Average 91 92 91 91 Minimum SpO2 79 87 87 79 Desaturation Event Index 0.3 3.8 0.4 0.0 # Desat. Events below 89% 2 1 1 N/A Time(%) with Saturation below 89% 5.4 0.0 2.6 2.8 Time(min.) with Saturation below 89% 22.9 0.1 11.0 11.7 Heart Rate Analysis End Tidal CO2 Analysis Min (bpm) Max (bpm) Average (bpm) TSP (mins) % of TSP Awake 31 250 66 Above 55 mmHg 0.0 0.0 NREM 48 127 64 50-55 mmHg 0.0 0.0 REM 42 85 58 45-50 mmHg 0.0 0.0 Overall 42 127 63 40-45 mmHg 5.4 3.0 35-40 mmHg 156.2 86.1 30-35 mmHg 19.7 10.9 Average ETCO2 0.1 Supplemental O2 Values Minimum O2 level: None Value Start Time End Time Coffee Supervisor Comments PSG Study Mr. Berry slept in the right, left, and supine. No cardiac arrhythmia or PLM's noted. No bruxism noted. Snoring was noted and scored as a 3 on a scale of 1 through 5. (0=no snoring, 5=snoring loud enough to be heard through a closed door or down the el way) awoke to use the restroom one time during the night. Mr. 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 The completed physician report will then be placed in the patient medical record. Pt. had a long period of wakefulness after he was up to use the restroom. 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 also stated he had a c-pap machine three years ago before moving here. He had to forfeit the machine back to [place] [facility] [place] area. Therapy (cm H2O) 0 TIB (min.) 454.0 TST (min.) 181.5 Sleep Onset (min.) 17.5 REM Onset From Sleep (min.) 394.5 Sleep Efficiency % 40 Wakefulness (%) 60 Wakefulness (min.) 272.5 NREM 1 (%) 14 NREM 1 (min.) 25.0 NREM 2 (%) 77 NREM 2 (min.) 140.5 NREM 3 (%) 0 NREM 3 (min.) 0.0 REM (%) 9 REM (min.) 16.0 # Arousals 40 Arousal Index 13 # Snore 259 Snore Index 85.6 AHI 0.3 AHI Supine 0 AHI Non-Supine 0 NREM AHI 0.0 REM AHI 3.8 RDI 0.3 # Obstructive Apnea 0 # Central Apnea 1 # Mixed Apnea 0 # Hypopneas 0 RERAs 0 Total Respiratory Events 1 Time Below SpO2 89% (min.) 11.1 Mean NREM SpO2 (%) 91 Mean REM SpO2 (%) 92 Mean Sleep SpO2 (%) 91 Min NREM SpO2 (%) 87 Min REM SpO2 (%) 87 Position Supine (min.) 31.0 Position Non-supine (min.) 180.3 LM Index Sleep 90.9 LM Index NREM 99.7 LM Index REM 0.0 Mean Heart Rate (bpm) 63 Min Heart Rate (bpm) 42
--- NOTE | 2016-08-03 09:09 | POLYSOMNOGRAPH REPORT ---
CLINICAL DATA: A 45-year-old male, with a BMI of 31.[address] Du with history of ischemic stroke. When he was in the hospital, it was noted that he stopped breathing during sleep. 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 SLEEP ARCHITECTURE: Total sleep period was 436.5 minutes. Total sleep time was 181.5 minutes divided between 165.5 minutes of non-REM sleep and 16 minutes of REM sleep. Sleep onset latency was 17.5 minutes. REM latency was markedly delayed at 394.5 minutes. Sleep efficiency was reduced severely to 40%. Wake after sleep onset was elevated at 255 minutes. Sleep consisted of stage N1 14%, N2 77% and REM 9%. AROUSAL DATA: Forty arousals were recorded for an index of 13 per hour. PLM DATA: Significantly elevated limb movements were seen during sleep. There were 275 limb movements during sleep noted for an index of 90.9 per hour with arousal index of 6.6 per hour. RESPIRATORY DATA: There was no evidence of clinically significant sleep apnea/hypopnea seen. The AHI was 0.3. There was one central apneic episode 13 seconds in duration. OXIMETRY DATA: No significant hypoxemia was seen. Oxygen khushboo was 87% during REM. The mean saturation was 91%. EKG: Heart rates ranged from 42-127 beats per minute. No arrhythmias were noted. BATTERY CONTAINER TESTER ALUMINUM'S COMMENTS: The patient slept in the right, left, and supine positions. Snoring was moderate, rated 3 on a scale of 1-5. The patient did not sleep very well. 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 He had a long period of wakefulness after which he was up to use the restroom. He had a CPAP machine 3 years ago before moving here, but had to give it back when he moved to this area. IMPRESSION: No evidence of clinically significant sleep apnea/hypopnea was seen on this limited sleep study. However, the patient did have a very long period of wakefulness throughout the middle of the night with only 2 small sleep periods at the beginning and end of the evening. During those short sleep periods, no sleep apnea was seen. RECOMMENDATIONS: If sleep apnea is still suspected as a possible issue, then a sleep study during the day should be performed. Clinical correlation is needed. CHAZ
== END | disposition home or self-care (01) ==
LOC: C.NEUR 20:00
PROVIDERS: ATTEND Neuromusculoskeletal Medicine & OMM
DX: G47.30 Sleep apnea, unspecified (principal)

== ENCOUNTER → 2017-04-23 | Outpatient (CLI) | payer OTHER ==
[~2017-04-23] MED LIST changes: +ATOR80TA PO; +CLOP1TAB15 PO; +NEOMOIN3 OPL; +OMEP40CA41 PO; +RANI1TAB77 PO
--- NOTE | 2017-04-23 09:10 | DIAGNOSTIC IMAGING REPORT ---
Biliary ultrasound CLINICAL HISTORY: R11.2 Nausea with vomiting, [id number] Epigastric abdominal pain COMPARISON STUDY: No previous studies for comparison. FINDINGS: The pancreas was not optimally demonstrated, but appeared normal as visualized. The liver appears sonographically normal. The gallbladder appears sonographically normal. There is no ductal dilatation. The common bile duct measures 4 mm. There is no right-sided hydronephrosis. IMPRESSION: Normal study Electronically signed by: Titi Garcia M.D. 04/23/2017 9:09 AM Dictated Date/Time: 04/23/2017 9:08 AM
[2017-04-23 10:10] LABS: BASO % 0.6 %; BASO ABS # 0.08 K/uL (0-0.2); EOS ABS # 0.27 K/uL (0-0.5); HEMATOCRIT 45.6 % (42-52); HEMOGLOBIN 15.6 g/dL (14.0-18.0); IG# 0.03 K/uL (0.00-0.02); LYMPH % 30.9 %; LYMPH ABS # 4.22 K/uL (1.2-3.4); MEAN CELL VOLUME 86.7 fL (80-100); MEAN CORPUSCULAR HEMOGLOBIN 29.7 pg (25-34); MEAN CORPUSCULAR HGB CONC 34.2 g/dl (32-36); MEAN PLATELET VOLUME 10.2 fL (7.4-10.4); MONO % 6.9 %; MONO ABS # 0.94 K/uL (0.11-0.59); NEUT % 59.4 %; NEUT ABS # 8.11 K/uL (1.4-6.5); PLATELET COUNT 301 K/uL (130-400); RED CELL DISTRIBUTION WIDTH CV 14.2 % (11.5-14.5); RED CELL DISTRIBUTION WIDTH SD 44.9 fL (36.4-46.3); WHITE BLOOD COUNT 13.65 K/uL (4.8-10.8)
[2017-04-23 12:36] LABS: ALBUMIN 3.7 gm/dl (3.4-5.0); ALT/SGPT 31 U/L (12-78); BLOOD UREA NITROGEN 14 mg/dl (7-18); CALCIUM 8.8 mg/dl (8.5-10.1); CARBON DIOXIDE 27 mmol/L (21-32); CREATININE 1.04 mg/dl (0.60-1.40); GLUCOSE 106 mg/dl (70-99); LIPASE 141 U/L (73-393); SODIUM 137 mmol/L (136-145)
[2017-04-23 12:39] LABS: ALKALINE PHOSPHATASE 125 U/L (45-117); AST/SGOT 19 U/L (15-37); TOTAL PROTEIN 7.8 gm/dl (6.4-8.2)
== END | disposition home or self-care (01) ==
LOC: C.ULTR 08:39
PROVIDERS: ATTEND Registered Nurse
DX: R11.2 Nausea with vomiting, unspecified (principal); R10.13 Epigastric pain

== ENCOUNTER → 2017-05-07 | Day surgery (SDC) | payer OTHER ==
[2017-04-26 14:51] VITALS: Ht 175.3 cm; Wt 101.4 kg
[~2017-05-07] VITALS: Ht 175.3 cm; Wt 101.4 kg
[~2017-05-07] MED LIST changes: +EpHEDrine SULFATE 50MG/5ML SYR ONE; +LIDOCAINE HCL 2% 2 ML VIAL (20MG/ML) ONE; -LPT40 PO; -NCDT21 TD; +ONDANSETRON INJ 2 MG/ML 2 ML VIAL ONE; -PLV75 PO; +PROPOFOL IV EMULSION 10 MG/ML 20 ML VIAL IV ONE; +SODIUM CHLORIDE 0.9% 500ML 500 ML IV ONE
--- NOTE | 2017-05-07 12:37 | Endo History and Physical ---
History & Physical Date of Service: May 07, 2017. Chief Complaint: GERD Referring Physician: Dr. Santiago History of Present Illness 46 yo CM who presents for EGD secondary to GERD. Past Medical History Hypertension, Other Past Surgical History Hx Cardiac Surgery: No Hx Internal Defibrillator: No Hx Pacemaker: No Hx Abdominal Surgery: Yes (UMBILICAL HERNIA) Hx of Implantable Prosthesis: No Hx Post-Op Nausea and Vomiting: No Hx Cancer Surgery: No Hx Thoracic Surgery: No Hx Orthopedic: No Hx Urinary Tract Surgery: No Family History None Social History Smoking Status: Current Every Day Smoker Hx Substance Use: No Hx Alcohol Use: Yes (occasional) Allergies Coded Allergies: No Known Allergies (Unverified , 05/07/17) Current Medications Reported Home Medications Medications Dose Route/Sig Max Daily Dose Days Date Category Dose Instructions Plavix (Clopidogrel Bisulfate) 75 Mg Tab 75 Mg PO QAM 04/26/17 Reported INSTRUCTED TO CALL SURGEON'S OFFICE/PRESCRIBING MD Neosporin (Neomycin/Polymyxin/Bacitracin) Oint 1 Drop OPL Q4H 04/26/17 Reported Ranitidine [address] (Ranitidine HCl) 150 Mg Tab 150 Mg PO QPM 04/26/17 Reported Prilosec (Omeprazole) 40 Mg Cap 40 Mg PO QAM 04/26/17 Reported Lipitor (Atorvastatin) 80 Mg Tab 80 Mg PO QPM 04/26/17 Reported Norvasc (Amlodipine Besylate) 10 Mg Tab 10 Mg PO QAM 08/01/15 Reported Zestril (Lisinopril) 40 Mg Tab 40 Mg PO QAM 08/01/15 Reported Vital Signs Weight (Kilograms): 101.36 Height (Feet): 5 Height (Inches): 9 Date Time Temp Pulse Resp B/P (MAP) Pulse Ox O2 Delivery O2 Flow Rate FiO2 05/07/17 12:07 36.8 78 20 134/76 (95) 97 Room Air Physical Exam General Appearance: WD/WN, no apparent distress Respiratory/Chest: Auscultation: breath sounds normal Cardiovascular: Heart Auscultation: RRR Abdomen: Bowel Sounds: normal Inspection & Palpation: soft, non-distended, no tenderness, guarding & rebound Assessment and Plan Assessment: 46 yo CM who presents for EGD secondary to GERD. Plan: Proceed with EGD.
--- NOTE | 2017-05-07 12:57 | Discharge Instructions ---
Endoscopy Patient Instructions Date / Procedure(s) Performed May 07, 2017. EGD Allergy Information Coded Allergies: No Known Allergies (Unverified , 05/07/17) Discharge Date / Findings May 07, 2017. Gastric antrum biopsies Hiatal hernia Esophageal nodule s/p biopsies Medication Instructions Stopped Medication(s): PLAVIX Restart Stopped Medication(s): OK to resume all medications today as prescribed Reported Home Medications Medications Dose Route/Sig Max Daily Dose Days Date Category Dose Instructions Plavix (Clopidogrel Bisulfate) 75 Mg Tab 75 Mg PO QAM 04/26/17 Reported INSTRUCTED TO CALL SURGEON'S OFFICE/PRESCRIBING MD Neosporin (Neomycin/Polymyxin/Bacitracin) Oint 1 Drop OPL Q4H 04/26/17 Reported Ranitidine [address] (Ranitidine HCl) 150 Mg Tab 150 Mg PO QPM 04/26/17 Reported Prilosec (Omeprazole) 40 Mg Cap 40 Mg PO QAM 04/26/17 Reported Lipitor (Atorvastatin) 80 Mg Tab 80 Mg PO QPM 04/26/17 Reported Norvasc (Amlodipine Besylate) 10 Mg Tab 10 Mg PO QAM 08/01/15 Reported Zestril (Lisinopril) 40 Mg Tab 40 Mg PO QAM 08/01/15 Reported Provider Instructions Activity Restrictions - No exercising or heavy lifting for 24 hours. - Do not drink alcohol the day of the procedure. - Do not drive a car or operate machinery until the day after the procedure. - Do not make any important decisions or sign important papers in 24 hours after the procedure. Following Day: - Return to full activity which may include returning to work/school. Diet Start your diet with liquids and light foods (jello, soup, juice, toast). Then eat your usual diet if not nauseated. Treatment For Common After Affects For mild abdominal pain, bloating, or excessive gas: - Rest - Eat lightly - Lie on right side Follow-Up Information Follow-up with Dr. Santiago as scheduled Anesthesia Information What You Should Know You have had a procedure that required some medicine to reduce anxiety and discomfort. This treatment is called moderate sedation. After receiving the treatment, you may be sleepy, but you will be able to breathe on your own. The effects of the treatment may last for several hours. Follow these instructions along with Activity/Diet recommendations noted above: * Do NOT do anything where dizziness or clumsiness would be dangerous. * Rest quietly at home today, then you can be up and about tomorrow. * Have a responsible person stay with you the rest of today. * You may have had an I.V. today. If so, you may take the dressing off later today. Recommendations Call your doctor if: * Trouble breathing * Continuous vomiting for more than 24 hours * Temperature above 101 degrees * Severe abdominal pain or bloating * Pain not relieved by pain medicine ordered * There is increased drainage or redness from any incision * A large amount of rectal bleeding greater than 2-3 tablespoons. (If you had a polyp/s removed or have hemorrhoids, a small amount of blood - from the rectum is to be expected.) * You have any unanswered questions or concerns. IN THE EVENT OF A SERIOUS EMERGENCY, GO TO THE NEAREST EMERGENCY ROOM Your discharge instructions were prepared by provider Armando Dyer. Patient Instructions Signature Page Chano Hugh Patient (or Guardian) Signature/Date: I have read and understand the instructions given to me by my caregivers. Caregiver/RN/Doctor Signature/Date: The above-named patient and/or guardian has received patient instructions on this date. + Original Patient Signature Page (only) stays with chart. Please make copy for patient.
--- NOTE | 2017-05-07 12:59 | GI REPORT ---
Procedure Date: 05/07/2017 12:24 PM Procedure: Upper GI endoscopy Indications: Gastro-esophageal reflux disease Medicines: Monitored Anesthesia Care Complications: No immediate complications. Estimated Blood Loss: Estimated blood loss: none. Procedure: Pre-Anesthesia Assessment: - Prior to the procedure, a History and Physical was performed, and patient medications and allergies were reviewed. The patient's tolerance of previous anesthesia was also reviewed. The risks and benefits of the procedure and the sedation options and risks were discussed with the patient. All questions were answered, and informed consent was obtained. Prior Anticoagulants: The patient has taken Plavix (clopidogrel), last dose was 6 days prior to procedure. ASA Grade Assessment: III - A patient with severe systemic disease. After reviewing the risks and benefits, the patient was deemed in satisfactory condition to undergo the procedure. After obtaining informed consent, the endoscope was passed under direct vision. Throughout the procedure, the patient's blood pressure, pulse, and oxygen saturations were monitored continuously. The scope was introduced through the mouth, and advanced to the second part of duodenum. The upper GI endoscopy was accomplished without difficulty. The patient tolerated the procedure well. Findings: A single 3 mm mucosal nodule with a localized distribution was found in the middle third of the esophagus. Biopsies were taken with a cold forceps for histology. A small hiatal hernia was present. Biopsies were taken with a cold forceps in the gastric antrum for Helicobacter pylori testing. The examined duodenum was normal. Impression: - Mucosal nodule found in the esophagus. Biopsied. - Small hiatal hernia. - Normal examined duodenum. - Biopsies were taken with a cold forceps for Helicobacter pylori testing. Recommendation: - Resume previous diet. - Continue present medications. - Await pathology results. - Return to primary care physician as previously scheduled. Armando Dyer DO 05/07/2017 12:59:26 PM This report has been signed electronically. Note Initiated On: 05/07/2017 12:24 PM I attest to the content of the Intraoperative Record and orders documented therein, exceptions below
[2017-05-07 13:29] VITALS: BP 110/64; PULSE 73; O2SAT 95
--- NOTE | 2017-05-07 13:49 | Anesthesiology Progress Note ---
Anesthesia Post Op Note Date & Time May 07, 2017 at 13:49 Vital Signs Pain Intensity: 0 Vital Signs Past 12 Hours Date Time Temp Pulse Resp B/P (MAP) Pulse Ox O2 Delivery O2 Flow Rate FiO2 05/07/17 13:29 73 16 110/64 (79) 95 Room Air 05/07/17 13:14 78 16 114/67 (83) 95 Room Air 05/07/17 12:59 78 16 87/51 (63) 97 Room Air 05/07/17 12:07 36.8 78 20 134/76 (95) 97 Room Air Notes Mental Status: alert / awake / arousable, participated in evaluation Pt Amnestic to Procedure: Yes Nausea / Vomiting: adequately controlled Pain: adequately controlled Airway Patency, RR, SpO2: stable & adequate BP & HR: stable & adequate Hydration State: stable & adequate Anesthetic Complications: no major complications apparent
== END | disposition home or self-care (01) ==
LOC: C.GI 11:43
PROVIDERS: ATTEND Internal Medicine
DX: K21.9 Gastro-esophageal reflux disease without esophagitis (principal); K22.8 Other specified diseases of esophagus; K44.9 Diaphragmatic hernia without obstruction or gangrene; Z86.73 Personal history of transient ischemic attack (TIA), and cerebral infarction without residual deficits; I10 Essential (primary) hypertension; E66.9 Obesity, unspecified; Z68.33 Body mass index [BMI] 33.0-33.9, adult; Z98.890 Other specified postprocedural states; F17.200 Nicotine dependence, unspecified, uncomplicated; Z79.02 Long term (current) use of antithrombotics/antiplatelets

== ENCOUNTER → 2017-10-08 | Outpatient (CLI) | payer OTHER ==
[~2017-10-08] MED LIST changes: -AMLO-114 PO; +AMLO10TA3 PO; -CLOP1TAB15 PO; -EpHEDrine SULFATE 50MG/5ML SYR ONE; -LIDOCAINE HCL 2% 2 ML VIAL (20MG/ML) ONE; -ONDANSETRON INJ 2 MG/ML 2 ML VIAL ONE; -PROPOFOL IV EMULSION 10 MG/ML 20 ML VIAL IV ONE; -SODIUM CHLORIDE 0.9% 500ML 500 ML IV ONE
[2017-10-08 13:20] LABS: BASO % 0.7 %; BASO ABS # 0.09 K/uL (0-0.2); EOS % 2.3 %; EOS ABS # 0.28 K/uL (0-0.5); HEMATOCRIT 46.3 % (42-52); HEMOGLOBIN 15.7 g/dL (14.0-18.0); IG# 0.04 K/uL (0.00-0.02); LYMPH % 29.3 %; LYMPH ABS # 3.65 K/uL (1.2-3.4); MEAN CELL VOLUME 85.7 fL (80-100); MEAN CORPUSCULAR HEMOGLOBIN 29.1 pg (25-34); MEAN CORPUSCULAR HGB CONC 33.9 g/dl (32-36); MEAN PLATELET VOLUME 10.8 fL (7.4-10.4); MONO % 7.6 %; MONO ABS # 0.95 K/uL (0.11-0.59); NEUT % 59.8 %; NEUT ABS # 7.43 K/uL (1.4-6.5); PLATELET COUNT 274 K/uL (130-400); RED CELL DISTRIBUTION WIDTH CV 14.5 % (11.5-14.5); RED CELL DISTRIBUTION WIDTH SD 45.2 fL (36.4-46.3); WHITE BLOOD COUNT 12.44 K/uL (4.8-10.8)
[2017-10-08 14:15] LABS: HEMOGLOBIN A1C 6.3 % (4.5-5.6)
[2017-10-08 17:35] LABS: BLOOD UREA NITROGEN 8 mg/dl (7-18); CALCIUM 8.4 mg/dl (8.5-10.1); CARBON DIOXIDE 22 mmol/L (21-32); CHOLESTEROL 112 mg/dl (0-200); CREATININE 1.09 mg/dl (0.60-1.40); GLUCOSE 107 mg/dl (70-99); LDL CHOLESTEROL CALCULATED 54 mg/dl; POTASSIUM 3.8 mmol/L (3.5-5.1); SODIUM 137 mmol/L (136-145)
== END | disposition home or self-care (01) ==
LOC: C.LABPBG 11:22
PROVIDERS: ATTEND Family Medicine
DX: E78.5 Hyperlipidemia, unspecified (principal); I10 Essential (primary) hypertension; R73.03 Prediabetes; K21.9 Gastro-esophageal reflux disease without esophagitis

== ENCOUNTER → 2017-10-15 | Outpatient (CLI) | payer OTHER ==
[~2017-10-15] MED LIST changes: +OPTIRAY 320 IV PRN
--- NOTE | 2017-10-15 13:55 | DIAGNOSTIC IMAGING REPORT ---
[facility] CLINICAL HISTORY: 10/08/17 1126 CREA [address] exam. TECHNIQUE: Transaxial acquisition with multi axial reformatted images COMPARISON STUDY: CT 08/31/2017 FINDINGS: Considerable plaque and atelectatic change throughout the abdominal pelvic and lower extremity arterial vasculature. Moderate atherosclerotic change of the abdominal aorta with no evidence for aneurysm. Renal arteries appear unremarkable. Celiac axis shows moderate atherosclerotic narrowing. There is a focal complete occlusion of the superior mesenteric artery with collateral reconstitution approximately 2 cm from its origin. No significant stenotic change of the more distal and/or peripheral abdominal or pelvic arterial vessels. 90% stenosis proximal aspect of the left iliac artery. This may be secondary to thrombus formation. Extends over a length of 2.5 cm. 80% stenosis origin of the inferior mesenteric artery. The arterial structures of the pelvis show mild atherosclerotic change. A high-grade stenotic process, however is not seen. Evaluation of the lower leg vasculature demonstrates a 25% narrowing of the origin of the right superficial femoral artery. There are findings of complete occlusion of the distal left superficial femoral artery with collateral reconstitution of the distal left popliteal artery. There is three-vessel runoff vasculature involving the lower legs. There appears to be a component of mild to moderate chronic small vessel change involving the distal runoff vasculature bilaterally. IMPRESSION: 1. Extensive atherosclerotic change throughout the abdominal, pelvic, leg and lower leg vasculature bilaterally. 2. Moderate 50% narrowing origin of the celiac axis. 3. Complete occlusion origin superior mesenteric artery with collateral reconstitution 2 cm from its origin. 4. 80% stenosis origin inferior mesenteric artery with moderate post stenotic dilatation. 5. 90% stenosis proximal aspect left iliac artery secondary to thrombus formation. This extends over a length of 2.5 cm. 6. 25% narrowing origin of the right superficial femoral artery. 6. Complete occlusion distal left superficial femoral artery with collateral reconstitution of the distal left popliteal artery. 7. 3 vessel runoff of the lower legs bilaterally with moderate small vessel arterial occlusive change bilaterally The above report was generated using voice recognition software. It may contain grammatical, syntax or spelling errors. Electronically signed by: Calvin Nicole M.D. 10/15/2017 1:54 PM Dictated Date/Time: 10/15/2017 1:40 PM
== END | disposition home or self-care (01) ==
LOC: C.CTS 12:48
PROVIDERS: ATTEND Surgery Vascular Surgery
DX: I70.412 Atherosclerosis of autologous vein bypass graft(s) of the extremities with intermittent claudication, left leg (principal)

== ENCOUNTER 2023-06-12 05:14 | Inpatient (IN) ==
--- NOTE | 2023-06-11 13:14 | History & Physical Report ---
Date of Service June 11, 2023 History of Present Illness Primary Care Provider: MADHAVI Beltran Name: AVA BERRY Patient Number: [id number] : [id number] Date of Service: 06/04/2023 Chief Complaint: _Follow-up for aortoiliac and peripheral arterial disease HPI: _Mr. Berry is a middle-age male presents to Dr. Dominguez's vascular surgery clinic today for a follow-up appointment regarding his aortoiliac occlusive disease and peripheral arterial disease. Patient states that he has noted worsening discomfort in the left leg since being seen here 1 year ago. He does state to having some discomfort when just standing in the left calf, but states this sometimes feels like it is shooting down his leg as well. He also states to having a different type of discomfort when he walks, limiting his ambulation to about 50 yards or less before his left calf bothers him enough to stop walking. He denies any rest pain in the feet or toes, discoloration of the feet or toes, nonhealing wounds or ulcerations, right leg symptoms. Additionally he denies any significant changes in his health since being seen here 1 year ago. He does continue to smoke cigarettes, but is working on quitting. His aortoiliac ultrasound performed prior to today's appointment demonstrates patent bilateral common iliac stents, however, his right iliac stent has a mild stenosis noted, which is not hemodynamically significant. His left iliac artery stent demonstrates a significant stenosis and monophasic flow distal to the stent. His bilateral lower extremity arterial ultrasound demonstrates mild diffuse disease throughout the right lower extremity, and a right leg LILLIE of 0.88, a decrease from last year when it was 1.08. His left lower extremity redemonstrates his left SFAO, and a left leg LILLIE of 0.59, decreased from 0.75 1- year ago. Current Home Meds: (Last Updated 10/03 15:55) amLODIPine (amLODIPine 10 mg oral tablet) TAKE 1 TABLET BY MOUTH EVERY DAY aspirin (aspirin 81 mg oral delayed release tablet) 81 mg PO Daily atorvastatin (atorvastatin 80 mg oral tablet) TAKE 1 TABLET BY MOUTH EVERYDAY AT BEDTIME clopidogrel (clopidogrel 75 mg oral tablet) TAKE 1 TABLET BY MOUTH EVERY DAY lisinopril (lisinopril 40 mg oral tablet) TAKE 1 TABLET BY MOUTH EVERY DAY nicotine (nicotine 14 mg/24 hr transdermal film, extended release) APPLY 1 PATCH TRANSDERMAL DAILY ondansetron (Zofran 4 mg oral tablet) 4 mg PO bid PRN: as needed for nausea/vomiting pantoprazole (pantoprazole 40 mg oral delayed release tablet) TAKE 1 TABLET BY MOUTH EVERY DAY Allergies and Sensitivities: NKA Past Medical History: Problems: Aortoiliac occlusive disease Peripheral arterial disease Chest pain Bilateral leg and foot pain Rib pain on left side Night sweats Tobacco user Carotidynia Tobacco use Bronchospasm Cough Leukocytosis Stenosis of iliac artery S/P orthopedic surgery, follow-up exam Left hand paresthesia Type 2 diabetes, HbA1c goal < 7% Left ankle pain Plantar fasciitis, bilateral Chronic headache Memory loss Atypical pigmented skin lesion Left tibialis posterior tendinitis Anterior leg pain (atherosclerosis) Superior mesenteric artery stenosis Retained food in stomach Nodule of esophagus Nicotine dependence Left-sided weakness Left foot pain Left eye symptoms IgA deficiency, selective Gastropathy Hiatal hernia GERD without esophagitis Abdominal pain, epigastric Dyslipidemia Carotid thromboses, right Postprandial vomiting History of stroke Numbness and tingling Weakness Weight disorder OBJECTIVE Vitals: Last Updated 06/04/23 13:19 Date Temp BP Location Pulse RR SpO2 Pain 06/04/23 128/100 Right Arm 06/04/23 0 06/04/23 164/100 Left Arm 104 97 Vital Signs are the last 3 documented. No Orthostatic Data Available Height and Weight: Last Updated 04/03/22 11:31 Date BMI Wt(kg) Wt(lb) Method Ht(cm) (ft-in) Method 04/03/22 112.1 247 Standing Scale 10/31/21 105.9 233 Standing Scale 10/20/21 32.59 105.6 232 Standing Scale 180 5-11 Heights and Weights are the last 3 documented. Physical Exam Constitutional: In general patient is a overweight but healthy-appearing well- nourished well-developed middle-aged male no distress. He is alert and oriented without any focal deficits. His carotids do not demonstrate a bruit. His heart is regular, his lungs are decreased but clear. His abdomen is soft nontender wi th normoactive bowel sounds in all 4 quadrants. There is no pulsatile mass. Brachial and radial pulses are +3. Femoral pulses are +2 on the right, nonpalpable on the left. His left lower extremity distal pulses are nonpalpable. His right lower extremity distal pulses are +2. His toes demonstrate brisk capillary refill and no sign of distal ischemia. ASSESSMENT: _ PLAN: _ 1 ) _aortoiliac occlusive disease Patient is a history of aortoiliac occlusive disease, having undergone bilateral, iliac stent placement in the past by Dr. Dominguez. He now appears to have restenosis in the stents, mild on the right and significant on the left, which is reducing the inflow to the left lower extremity. In combination with his left SFA occlusion, his left LILLIE has now dropped to 0.59, and he now appears to have left calf claudication symptoms. He also has left calf symptoms when just standing and sometimes just sitting in certain positions, however, which would not be related to his arteries, and so he may have some element of neurogenic etiology in addition to his arterial insufficiency. Patient was advised that correcting the arterial stenoses would likely result in some improv ement in his symptoms, but is unlikely to alleviate all of his discomfort, as this will have no effect on his standing or sitting symptoms. Due to the iliac artery stenosis, and his SFA occlusion, we recommended that he undergo a left leg angiography with possible intervention. The procedure risks benefits and alternatives were discussed with the patient by myself at Dr. Dominguez's request. Patient expresses understanding and agreement to proceed. 2 ) _peripheral arterial disease, left SFA occlusion See above Thank you for letting us participate in the care of this patient. I have personally spent_36__ minutes performing [id number] and eqd-[id number]-face activities on this date of service.Time does not include separately reported services. Activities Include: _x_ review of the medical record x_ obtaining a history x__ physical exam/evaluation __ review labs x_ review radiology reports _x_ counseling/educating patient/family/caregiver __ discussion/referral to other healthcare professional _x_ documenting care in the medical record __ independent interpretation of results _x_ communication of results to patient/family/caregiver _x_ coordination of care Signature Line Electronic Signature on File CC: MADHAVI Beckman [facility] [address] [place] [address],[address] [facility] [id number] * Electronically Reviewed/Signed by: Dominique Crane PA-C Author Signature Dt/Tm:06/04/2023 04:02 PM [facility] [place] [address], [address] [place] [address] LM Result Type: HVI Outpt Note Date of Service: June 04, 2023 15:53 EDT Authorization Status: Final Author or Import Date: SONAM Crane Lynn on June 04, 2023 16:02 EDT Verified By: SONAM Crane Lynn on June 04, 2023 16:02 EDT Encounter info: [id number], [facility], Clinic, 06/04/2023 - 06/04/2023 Allergies Allergy/AdvReac Type Severity Reaction Status Date / Time No Known Allergies Allergy Verified 03/19/23 08:47 Home Medications Medication Instructions Recorded Confirmed Type aspirin 81 mg tablet,delayed 81 mg PO QPM /08/0803/19/23 History release lisinopril 40 mg tablet 40 mg PO QPM #90 tabs 09/18/22 03/19/23 Rx pantoprazole 40 mg tablet,delayed 40 mg PO QPM #90 tabs 09/18/22 03/19/23 Rx release prednisone 10 mg tablet See Rx Instructions PO DAILY #20 03/16/23 03/19/23 Rx tabs cholecalciferol (vitamin D3) 1,250 50,000 unit PO WEEKLY 8 weeks #8 03/20/23 Rx mcg (50,000 unit) capsule caps metformin 500 mg tablet,extended 1,000 mg (2 x 500 mg) PO BID #120 03/20/23 Rx release 24 hr tabs amlodipine 10 mg tablet 10 mg PO QPM #90 tabs 06/11/23 Rx atorvastatin 80 mg tablet 80 mg PO QPM #90 tabs 06/11/23 Rx clopidogrel 75 mg tablet 75 mg PO QPM #90 tabs 06/11/23 Rx Past Med/Surg History Medical History (Updated 04/02/23 @ 09:56 by Matt Plascencia MD) Hepatic steatosis Type 2 diabetes mellitus GERD without esophagitis Gastroparesis Leukocytosis Family history of reaction to anesthesia MOTHER - TOOK A LITTLE LONGER TO WAKE UP FROM IT Carotid artery stenosis LEFT SIDE/PCP MONITORS ANNUALLY PVD (peripheral vascular disease) Hypertension Hyperlipidemia GERD (gastroesophageal reflux disease) CVA (cerebral vascular accident) PT REPORTS MINI STROKE 3 YEARS AGO (DENIES ANY CURRENT PROBLEMS) REASON FOR PLAVIX Surgical History History of cataract surgery LEFT History of esophagogastroduodenoscopy (EGD) History of herniorrhaphy History of tooth extraction History of vascular access device STENTS PLACED IN BILAT LEGS. Family History Father Family history of diabetes mellitus Myocardial infarction Mother Family history of diabetes mellitus Myocardial infarction Brother Myocardial infarction Denies family history of Ovarian cancer Prostate cancer Breast cancer Colorectal cancer Social History Smoking Status: Current every day smoker Cigarettes Per Day: 1/2 PPD/ADVISED NPO; Second Hand Exposure: Yes; Do You Dip or Chew Tobacco: No; Hx Alcohol Use: No Hx Substance Use: No Preferred Language: Hungarian Communication Ability: Effective Visual Impairment: No Limitations Hearing Ability: Normal Apprentice/Lineman Required: No Beliefs That Will Affect Care: None Current Living Situation: Family Current Living Situation Comment: [facility] current occupational status: employed Feels Safe at Home: Yes Childhood Exposure to Second-Hand Smoke: Yes Diet: regular Diet Comment: regular caffeine: Yes (coffee) during the past year weight has: remained stable Dental Care, Regularly: No Physical Activity Frequency: 5-6 Times per Week Seatbelt Use: always Sunscreen Use: No Assistive Devices: Glasses
[2023-06-12] MEDS: SODIUM CHLORIDE 0.9% 1,000 ML IV SCH (06:01)
[2023-06-12 06:08] LABS: Creatinine Clr Calc Pharmacy 97.4 ml/min; Est GFR (African American) 84.6 ml/min
[2023-06-12] MEDS: CEFAZOLIN 2,000 MG/15 ML SYR IV SCH (07:40)
--- NOTE | 2023-06-12 07:40 | History & Physical Bridge Note ---
Date of Service June 12, 2023 History & Physical Bridge Note I have examined the patient, reviewed the History & Physical and in the interval since the performance of the History & Physical I have noted the following changes of clinical significance: no changes noted
--- NOTE | 2023-06-12 07:45 | Pre Anesthesia Assessment ---
Date of Service June 12, 2023 Pre Sedation Assessment Vital Signs Temp Pulse Resp BP BP Pulse Ox O2 Del Method 06/12/23 05:46 36.5 C 93 H 20 131/92 96/71 L 96 Room Air Cardiovascular RRR, no murmur, no edema Respiratory normal respiratory effort, lungs clear to auscultation Pre-Sedation Airway Assessment Smoking Status: Current some day smoker Hx Sleep Apnea: No Short, Thick Neck: Yes Thyromental Distance: > or= 3.5 Finger Breadths Oral Cavity: + WNL Mallampati Class: III ASA: ASA3 NPO Status Date of Last Intake of Fluids: 06/11/23 Time of Last Intake of Fluids: 21:00 Date of Last Intake of Solid Food: 06/11/23 Time of Last Intake of Solid Foods: 17:00 Procedure Planning Contraindications for Sedation: none Current Medications Reviewed: Yes Notes The planned sedation has been discussed with the patient. Informed Consent was obtained. I have identified the patient, determined the appropriateness of sedation and have assessed the patient immediately prior to the procedure. All medicine(s) and interventions are by my order.
[2023-06-12] MEDS: fentaNYL citrate PF 100 MCG/2 ML VIAL ONE ×3 (08:10→10:54)
[2023-06-12] MEDS: MIDAZOLAM HCL 1 MG/ML 2ML VIAL ONE ×3 (08:10→10:55)
[2023-06-12] MEDS: HEPARIN SOD (PORCINE) 1000 UNIT/ML ONE (08:45)
--- OUTSIDE RECORDS SUMMARY | 2023-06-12 09:00 | External Medical Summary | Continuity of Care Document ---
Author Name Unknown Organization [address] Address [address] [place], [place] [id number] Care Team Providers Care A/C Technician Name Role Phone Carmel Mcleod Primary Care Physician [phone] Encounter [facility] [id number] Date(s): 05/28/23 - 05/28/[address], [address] [place] [address] [phone] Discharge Disposition: Home or Self Care Attending Physician: SONAM Crane Lynn Referring Physician: MD Mcleod Amy L Allergies, Adverse Reactions, Alerts No Known Allergies Immunizations Given and Recorded Vaccine Date Status Refusal Reason influenza virus vaccine, inactivated 12/06/20 Give n influenza virus vaccine, inactivated 01/18/18 Give n tetanus toxoids-diphtheria, Td (Adult) 1 04/09/17 Recorded 1Result Comment: 2021-01-11: Historical information-source unspecified Medications amLODIPine 10 mg oral tablet Start: 05/01/22 14:29:00 EDT, See Instructions, Disp# 30 tab, Refills: 6, TAKE 1 TABLET BY MOUTH EVERY DAY, Pharmacy: [facility] Start Date: 05/01/22 Status: Ordered aspirin 81 mg oral delayed release tablet Start: 12/09/18 14:37:00 EDT, 1 tab, PO, Daily, Disp# 90 tab, Refills: 3, other Start Date: 12/09/18 Status: Ordered atorvastatin 80 mg oral tablet Start: 05/01/22 14:29:00 EDT, See Instructions, Disp# 30 tab, Refills: 6, TAKE 1 TABLET BY MOUTH EVERYDAY AT BEDTIME, Pharmacy: [facility] Start Date: 05/01/22 Status: Ordered clopidogrel 75 mg oral tablet Start: 06/22/22 6:48:00 EDT, See Instructions, Disp# 30 tab, Refills: 11, TAKE 1 TABLET BY MOUTH EVERY DAY, [id number] Start Date: 06/22/22 Status: Ordered lisinopril 40 mg oral tablet Start: 01/08/22 18:36:00 EST, See Instructions, Disp# 90 tab, Refills: 3, TAKE 1 TABLET BY MOUTH EVERY DAY, Pharmacy: [id number] Start Date: 01/08/22 Status: Ordered nicotine 14 mg/24 hr transdermal film, extended release Start: 10/03/22 15:55:00 EDT, See Instructions, Disp# 28 patch, Refills: 3, APPLY 1 PATCH TRANSDERMAL DAILY, Pharmacy: [id number] Start Date: 10/03/22 Status: Ordered pantoprazole 40 mg oral delayed release tablet Start: 08/07/22 9:25:00 EDT, See Instructions, Disp# 30 tab, Refills: 5, TAKE 1 TABLET BY MOUTH EVERY DAY, [facility]acy: [id number] Start Date: 08/07/22 Status: Ordered Zofran 4 mg oral tablet Start: 06/08/21 12:13:00 EDT, 1 tab, PO, bid, Disp# 12 tab, PRN: as needed for nausea/vomiting, [id number] Start Date: 06/08/21 Status: Ordered Problem List Condition Confirmation Course Effective Dates Status Health St atus Informant Memory loss Confirmed Active Left ankle pain Confirmed Active (atherosclerosis) Confirmed Active Weakness Confirmed Active Bronchospasm Confirmed Active Carotid thromboses, right Confirmed Active Carotidynia Confirmed Active Chest pain Confirmed Active Chronic headache Confirmed Active Cough Confirmed Active Nodule of esophagus Confirmed Active Left eye symptoms Confirmed Active Retained food in stomach Confirmed Active Gastropathy Confirmed Active Dyslipidemia Confirmed Active Abdominal pain, epigastric Confirmed Active Left foot pain Confirmed Active GERD without esophagitis Confirmed Active Hiatal hernia Confirmed Active History of stroke Confirmed Active Stenosis of iliac artery Confirmed Active Left-sided weakness Confirmed Active Leukocytosis Confirmed Active Superior mesenteric artery stenosis Confirmed Active Nicotine dependence Confirmed Active Night sweats Confirmed Active Numbness and tingling Confirmed Active Aortoiliac occlusive disease Confirmed Active Anterior leg pain Confirmed Active Bilateral leg and foot pain Confirmed Active Left hand paresthesia Confirmed Active Peripheral arterial disease Confirmed Active Atypical pigmented skin lesion Confirmed Active Plantar fasciitis, bilateral Confirmed Active Rib pain on left side Confirmed Active IgA deficiency, selective Confirmed Active S/P orthopedic surgery, follow-up exam Confirmed Active Left tibialis posterior tendinitis Confirmed Active Tobacco use Confirmed Active Tobacco user Confirmed Active Type 2 diabetes, HbA1c goal < 7% Confirmed Active Postprandial vomiting Confirmed Active Weight disorder Confirmed Active Procedures Procedure Date Related Diagnosis Body Site Status Chest X-ray 1 10/14/21 Completed Plain X-ray of lumbar spine 2 10/14/21 Completed X-ray of thoracic spine 3 07/28/21 Completed X-ray tomography of right rib 4 07/28/21 Completed Colonoscopy 5, 6 06/20/21 Complete d US EXAM ABDOM COMPLETE 7 06/10/21 Completed X-ray of ring finger 8 05/31/21 Co mpleted Ultrasound 9 06/01/20 Completed Upper GI endoscopy 10 09/04/19 Com pleted MRI of brain and brain stem 11 03/28/19 Completed Abdominal aortogram w/ bilat eral iliac stents 11/13/17 Completed Hx of umbilical hernia repair 2010 Completed 1Impression: No acute process 2Mild deenerative changes without acute fracture or subluxation. 3[facility] Impression: 1. No evidence of acute fracture or malalignment involving the thoracic spine 4[facility] Impression: 1. No acute chest disease or evidence of fracture 5One 7mm polyp in the distal descending colon, removed with a cold snare. Resected and retrieved. Two 2 to 7mm polyps in the distal descending colon, removed with cold biopsy forceps. Resected and retrieved. The distal rectum and anal verge are normal on retroflexion view. 6Repeat colonoscopy 5-10 years. 7impression: 1 No acute abnormality is identified 2 Hepatic stenosis 8[facility] Impression: 1. Nondisplaced fracture through the radial sided tuft of the third distal phalanx 9Complete Abdominal US 1. Hepatic steatosis. 2. No gallstones or biliary ductal dilatation. 3. Partially obscured pancreas. 4. Mild splenomegaly. 10IMPRESSION: -Z line regular, 39 cm from the incisiors. -Normal esophagus. -Normal stomach. -Normal examined duodenum. -No specimens colelcted. Recommendation: -Discharge patient to home (ambulatory). -Continue present medications. -Return to primary care physician PRN. 111. No acute intracranial abnormality. 2. Multiple remote infarcts within the riht cerebral and cerebellar hemispheres redemonstrated. 3. No abnormal enhancement. Results Radiology Reports * Exam Date Time Procedure Performing Provider Status 05/28/23 8:59 AM VL Aortoiliac Duplex Complete Marco Gutierrez; Final Notes: (VL Aortoiliac Duplex Complete) Reason For Exam: iliac stents VL Aortoiliac Duplex Complete [facility] FINAL REPORT Name: AVA BERRY : 1970 Visit: [id number] Date: 28 May 2023 TYPE OF TEST: Aorto-Iliac Duplex REASON FOR TEST Bilateral common iliac artery stents INTERPRETATION/FINDINGS Arterial duplex imaging performed of the abdominal aorta and bilaterla iliac arteries: 1. The abdominal aorta is within normal limits; no aneurysmal disease or hemodynamically significant stenosis appreciated. 2. Patent stented right common iliac artery with elevated flow velocities noted throughout (329 cm/sec at the proximal end of the stent) of unknown hemodynamic significance. There is biphasic flow insonated in the stent and distally. 3. Patent stented left common iliac artery with elevated flow velocities noted at the proximal end of the stent (304 cm/sec) and the distal end/distal to the stent (331 cm/sec) with monophasic flow insonated distally, suggesting a hemodynamically significant restenosis. 4. No stenosis appreciated in the bilateral proximal internal iliac, external iliac or common femoral arteries. Compared to the previous study performed 04/04/2022, elevated flow velocities in the bilateral common iliac artery stents is unchanged; however, monophasic waveforms distal to the left FOSTER stent is a new finding. IMPRESSION/COMMENTS I have personally reviewed the data relevant to the interpretation of this study. TECHNOLOGIST: Letty JC, RD, RVT PHYSICIAN: Mati Dominguez M.D. Signed: 05/28/2023 02:54 PM Final Dictated by:MD Dominguez Eugene J Dictated DT/TM:05/28/2023 2:55 Signed by:MD Dominguez Eugene J Signed (Electronic Signature):05/28/2023 2:54 p Transcribed by:MIKE Social History Social History Type Response Tobacco Cigarettes, Started age 24 Years. 1 Smoking Status [facility] Sex Male 1Smoke about 1 pack a day Patient Care team information Care Team Personnel Name: MD Shani, Carmel Menjivar Position: Physician - Family Med Member Role: Primary Care Provider Address: Address: [address] [place] [address] [place] Name: SONAM Crane Lynn Position: Physician Hr Advisor Exempt - [facility] Surg Member Role: Lifetime Relationship Address: Address: [address] [place] [address] [place]
--- OUTSIDE RECORDS SUMMARY | 2023-06-12 09:00 | External Medical Summary | Continuity of Care Document ---
Author Name Unknown Organization [address] [place], [place] [id number] Care Team Providers Care Leasing Sales Consultant Name Role Phone Carmel Mcleod Primary Care Physician [phone] Encounter [facility] [id number] Date(s): 05/28/23 - 05/28/[address], [address] [place] [address] [phone] Discharge Disposition: Home or Self Care Attending [...] 1 TABLET BY MOUTH EVERY DAY, [facility] Start Date: 05/01/22 Status: Ordered aspirin 81 mg oral delayed release tablet Start: 12/09/18 14:37:00 EDT, 1 tab, PO, Daily, Disp# 90 tab, Refills: 3, other Start Date: 12/09/18 Status: Ordered atorvastatin 80 mg oral tablet Start: 05/01/22 14:29:00 EDT, See Instructions, Disp# 30 tab, Refills: 6, TAKE 1 TABLET BY MOUTH EVERYDAY AT BEDTIME, [facility]acy[facility] Start Date: 05/01/22 Status: Ordered clopidogrel 75 mg oral tablet Start: 06/22/22 6:48:00 EDT, See Instructions, Disp# 30 tab, Refills: 11, TAKE 1 TABLET BY MOUTH EVERY DAY, [facility]acy[id number] Start Date: 06/22/22 Status: Ordered lisinopril 40 mg oral tablet Start: 01/08/22 18:36:00 EST, See Instructions, Disp# 90 tab, Refills: 3, TAKE 1 TABLET BY MOUTH EVERY DAY, Pharmacy: [id number] Start Date: 01/08/22 Status: Ordered nicotine 14 mg/24 hr transdermal film, extended release Start: 10/03/22 15:55:00 EDT, See Instructions, Disp# 28 patch, Refills: 3, APPLY 1 PATCH TRANSDERMAL DAILY, Pharmacy: [id number] Start Date: 10/03/22 Status: Ordered pantoprazole 40 mg oral delayed release tablet Start: 08/07/22 9:25:00 EDT, See Instructions, Disp# 30 tab, Refills: 5, TAKE 1 TABLET BY MOUTH EVERY DAY, Pharmacy: [facility] [id number] Start Date: 08/07/22 Status: Ordered Zofran 4 mg oral tablet Start: 06/08/21 12:13:00 EDT, 1 tab, PO, bid, Disp# 12 tab, PRN: as needed for nausea/vomiting, [facility]acy: [id number] Start Date: 06/08/21 Status: Ordered Problem [...] changes without acute fracture or subluxation. 3[facility] Impression: 1. No evidence of acute fracture or malalignment involving the thoracic spine 4[facility] Impression: 1. No acute chest disease [...] abnormality is identified 2 Hepatic stenosis 8[facility] Impression: 1. Nondisplaced fracture through the [...] Performing Provider Status 05/28/23 8:59 AM VL Lower Ext Arterial Duplex Bilateral Letty Gutierrez; Final Notes: (VL Lower Ext Arterial Duplex Bilateral) Reason For Exam: PAD VL Lower Ext Arterial Duplex Bilateral [facility] FINAL REPORT Name: AVA BERRY : 1970 Visit: [id number] Date: 28 May 2023 TYPE OF TEST: Extremity Arterial Duplex REASON FOR TEST Bilateral FOSTER stents; Left SFA occlusion INTERPRETATION/FINDINGS Arterial duplex imaging performed of the bilateral lower extremities: RIGHT LE. No hemodynamically significant stenosis noted in the distal external iliac, common femoral, proximal profunda femoris, superficial femoral, popliteal, posterior tibial, peroneal or anterior tibial arteries. 2. The right ankle/brachial index is 0.88 (mildly reduced). Previously 1.08. LEFT LE. Monophasic waveform noted in the common femoral artery and distally, suggestive of a more proximal hemodynamically significant lesion in the left iliac arteries (see report for aortoiliac duplex ultrasound performed same day). 2. Occlusion of the superficial femoral artery in the distal thigh with reperfusion of the popliteal artery via collateral arteries. 3. No hemodynamically significant stenosis noted in the distal external iliac, common femoral, proximal profunda femoris, popliteal, posterior tibial, peroneal or anterior tibial arteries. 4. The left ankle/brachial index is 0.59 (moderately reduced). Previously 0.75. Note: Brachial systolic pressure difference of 24 mmHg (L>R), suggestive of a right subclavian or axillary artery stenosis/occlusion. Compared to the previous study performed 04/24/2022, both ankle/brachial indices are lower. IMPRESSION/COMMENTS I have personally reviewed the data relevant to the interpretation of this study. TECHNOLOGIST: Letty JC, [facility], RVT PHYSICIAN: Mati Dominguez M.D. Signed: 05/28/2023 02:54 PM Final Dictated by:MD Dominguez Eugene J Dictated DT/TM:05/28/2023 2:54 Signed by:MD Dominguez Eugene J Signed (Electronic Signature):05/28/2023 2:54 p Transcribed by:MIKE Social History Social History Type Response Tobacco Cigarettes, Started age 24 Years. 1 Smoking Status Current every day [facility] smoker Sex Male 1Smoke about 1 pack a day Patient Care team information Care Team Personnel Name: MD Shani, Carmel Menjivar Position: Physician - Family Med Member Role: Primary Care Provider Address: Address: [address] [place] [address] Name: SONAM Crane Lynn Position: Physician [employer] Sprayer Exempt - [facility] Surg Member Role: Lifetime Relationship Address: Address: [address] [place] [address]
--- OUTSIDE RECORDS SUMMARY | 2023-06-12 09:00 | External Medical Summary | Continuity of Care Document ---
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 Name Role Phone Carter Jarvis Primary Care Physician [phone] [id number] Date(s): 06/04/23 - 06/04/23 [facility] [address], [address] [place] [address] [phone] Encounter Diagnosis Aortoiliac occlusive disease(Discharge Diagnosis) - 06/04/23 Peripheral arterial disease(Discharge Diagnosis) - 06/04/23 Discharge Disposition: Home or Self Care Attending Physician: MD Dominguez Eugene J Referring Physician: MD Shani, Carmel Menjivar Allergies, Adverse Reactions, Alerts No Known Allergies Assessment and Plan Extracted from: Title:Clinical Document Author:SONAM Crane Lynn Date:06/04/23 [facility] OUT[facility]IENT NOTE Name: AVA BERRY Patient Number: [id number] : 1970 Date of Service: 06/04/2023 Chief Complaint: _Follow-up for aortoiliac and peripheral arterial disease HPI: _Mr. Berry is a middle-age male presents to Dr. Dominguez's vascular surgery clinic today for a follow-up appointment regarding his aortoiliac occlusive disease and peripheral arterial disease. Patient states that he has noted worsening discomfort in the left leg since being seen here 1 year ago. He does state to having some discomfort when just standing in the left calf, but states this sometimes feels like it is shooting down his leg as well. He also states to having a different type of discomfort when he walks, limiting his ambulation to about 50 yards or less before his left calf bothers him enough to stop walking. He denies any rest pain in the feet or toes, discoloration of the feet or toes, nonhealing wounds or ulcerations, right leg symptoms. Additionally he denies any significant changes in his health since being seen here 1 year ago. He does continue to smoke cigarettes, but is working on quitting. His aortoiliac ultrasound performed prior to today's appointment demonstrates patent bilateral common iliac stents, however, his right iliac stent has a mild stenosis noted, which is not hemodynamically significant. His left iliac artery stent demonstrates a significant stenosis and monophasic flow distal to the stent. His bilateral lower extremity arterial ultrasound demonstrates mild diffuse disease throughout the right lower extremity, and a right leg LILLIE of 0.88, a decrease from last year when it was 1.08. His left lower extremity redemonstrates his left SFAO, and a left leg LILLIE of 0.59, decreased from 0.75 1-year ago. Current Home Meds: (Last Updated 10/03 15:55) amLODIPine (amLODIPine 10 mg oral tablet) TAKE 1 TABLET BY MOUTH EVERY DAY aspirin (aspirin 81 mg oral delayed release tablet) 81 mg PO Daily atorvastatin (atorvastatin 80 mg oral tablet) TAKE 1 TABLET BY MOUTH EVERYDAY AT BEDTIME clopidogrel (clopidogrel 75 mg oral tablet) TAKE 1 TABLET BY MOUTH EVERY DAY lisinopril (lisinopril 40 mg oral tablet) TAKE 1 TABLET BY MOUTH EVERY DAY nicotine (nicotine 14 mg/24 hr transdermal film, extended release) APPLY 1 PATCH TRANSDERMAL DAILY ondansetron (Zofran 4 mg oral tablet) 4 mg PO bid PRN: as needed for nausea/vomiting pantoprazole (pantoprazole 40 mg oral delayed release tablet) TAKE 1 TABLET BY MOUTH EVERY DAY Allergies and Sensitivities: NKA Past Medical History: Problems: Aortoiliac occlusive disease Peripheral arterial disease Chest pain Bilateral leg and foot pain Rib pain on left side Night sweats Tobacco user Carotidynia Tobacco use Bronchospasm Cough Leukocytosis Stenosis of iliac artery S/P orthopedic surgery, follow-up exam Left hand paresthesia Type 2 diabetes, HbA1c goal < 7% Left ankle pain Plantar fasciitis, bilateral Chronic headache Memory loss Atypical pigmented skin lesion Left tibialis posterior tendinitis Anterior leg pain (atherosclerosis) Superior mesenteric artery stenosis Retained food in stomach Nodule of esophagus Nicotine dependence Left-sided weakness Left foot pain Left eye symptoms IgA deficiency, selective Gastropathy Hiatal hernia GERD without esophagitis Abdominal pain, epigastric Dyslipidemia Carotid thromboses, right Postprandial vomiting History of stroke Numbness and tingling Weakness Weight disorder OBJECTIVE Vitals: Last Updated 06/04/23 13:19 Date Temp BP Location Pulse RR SpO2 Pain 06/04/23 128/100 Right Arm 06/04/23 0 06/04/23 164/100 Left Arm 104 97 Vital Signs are the last 3 documented. No Orthostatic Data Available Height and Weight: Last Updated 04/03/22 11:31 Date BMI Wt(kg) Wt(lb) Method Ht(cm) (ft-in) Method 04/03/22 112.1 247 Standing Scale 10/31/21 105.9 233 Standing Scale 10/20/21 32.59 105.6 232 Standing Scale 180 5-11 Heights and Weights are the last 3 documented. Physical Exam Constitutional: In general patient is a overweight but healthy-appearing well-nourished well-developed middle-aged male no distress. He is alert and oriented without any focal deficits. His carotids do not demonstrate a bruit. His heart is regular, his lungs are decreased but clear. His abdomen is soft nontender with normoactive bowel sounds in all 4 quadrants. There is no pulsatile mass. Brachial and radial pulses are +3. Femoral pulses are +2 on the right, nonpalpable on the left. His left lower extremity distal pulses are nonpalpable. His right lower extremity distal pulses are +2. His toes demonstrate brisk capillary refill and no sign of distal ischemia. ASSESSMENT: _ PLAN: _ 1 ) _aortoiliac occlusive disease Patient is a history of aortoiliac occlusive disease, having undergone bilateral, iliac stent placement in the past by Dr. Dominguez. He now appears to have restenosis in the stents, mild on the right and significant on the left, which is reducing the inflow to the left lower extremity. In combination with his left SFA occlusion, his left LILLIE has now dropped to 0.59, and he now appears to have left calf claudication symptoms. He also has left calf symptoms when just standing and sometimes just sitting in certain positions, however, which would not be related to his arteries, and so he may have some element of neurogenic etiology in addition to his arterial insufficiency. Patient was advised that correcting the arterial stenoses would likely result in some improvement in his symptoms, but is unlikely to alleviate all of his discomfort, as this will have no effect on his standing or sitting symptoms. Due to the iliac artery stenosis, and his SFA occlusion, we recommended that he undergo a left leg angiography with possible intervention. The procedure risks benefits and alternatives were discussed with the patient by myself at Dr. Dominguez's request. Patient expresses understanding and agreement to proceed. 2 ) _peripheral arterial disease, left SFA occlusion See above Thank you for letting us participate in the care of this patient. I have personally spent_36__ minutes performing [id number] and [id number]-[id number]-face activities on this date of service.Time does not include separately reported services. Activities Include: _x_ review of the medical record x_ obtaining a history x__ physical exam/evaluation __ review labs x_ review radiology reports _x_ counseling/educating patient/family/caregiver __ discussion/referral to other healthcare professional _x_ documenting care in the medical record __ independent interpretation of results _x_ communication of results to patient/family/caregiver _x_ coordination of care Immunizations Given and Recorded Vaccine Date Status Refusal Reason influenza virus vaccine, inactivated 12/06/20 Give n influenza virus vaccine, inactivated 01/18/18 Give n tetanus toxoids-diphtheria, Td (Adult) 1 04/09/17 Recorded 1Result Comment: 2021-01-11: Historical information-source unspecified Medications amLODIPine 10 mg oral tablet Start: 05/01/22 14:29:00 EDT, See Instructions, Disp# 30 tab, Refills: 6, TAKE 1 TABLET BY MOUTH EVERY DAY, Pharmacy: [facility] Start Date: 05/01/22 Status: Ordered aspirin 81 mg oral delayed release tablet Start: 12/09/18 14:37:00 EDT, 1 tab, PO, Daily, Disp# 90 tab, Refills: 3, other Start Date: 12/09/18 Status: Ordered atorvastatin 80 mg oral tablet Start: 05/01/22 14:29:00 EDT, See Instructions, Disp# 30 tab, Refills: 6, TAKE 1 TABLET BY MOUTH EVERYDAY AT BEDTIME, Pharmacy: [facility] Start Date: 05/01/22 Status: Ordered clopidogrel 75 mg oral tablet Start: 06/22/22 6:48:00 EDT, See Instructions, Disp# 30 tab, Refills: 11, TAKE 1 TABLET BY MOUTH EVERY DAY, Pharmacy: [id number] Start Date: 06/22/22 Status: Ordered lisinopril 40 mg oral tablet Start: 01/08/22 18:36:00 EST, See Instructions, Disp# 90 tab, Refills: 3, TAKE 1 TABLET BY MOUTH EVERY DAY, Pharmacy: [id number] Start Date: 01/08/22 Status: Ordered nicotine 14 mg/24 hr transdermal film, extended release Start: 10/03/22 15:55:00 EDT, See Instructions, Disp# 28 patch, Refills: 3, APPLY 1 PATCH TRANSDERMAL DAILY, Pharmacy: [id number] Start Date: 10/03/22 Status: Ordered pantoprazole 40 mg oral delayed release tablet Start: 08/07/22 9:25:00 EDT, See Instructions, Disp# 30 tab, Refills: 5, TAKE 1 TABLET BY MOUTH EVERY DAY, Pharmacy: [email or web address] [id number] Start Date: 08/07/22 Status: Ordered Zofran 4 mg oral tablet Start: 06/08/21 12:13:00 EDT, 1 tab, PO, bid, Disp# 12 tab, PRN: as needed for nausea/vomiting, Pharmacy: [id number] Start Date: 06/08/21 Status: Ordered Mental Status 06/04/23 Barriers to Learning one year None evide nt Mandatory Health Literacy Documentation Yes Health Literacy Communication Barriers N ever Primary Language Finnish Problem List Condition Confirmation Course Effective Dates [...] vomiting Confirmed Active Weight disorder Confirmed Active Diagnosis Diagnosis Type Effective Dates Health Status Clinical Service Informant Aortoiliac occlusive disease Discharge Diagnosis 06/04/23 Peripheral arterial disease Discharge Diagnosis 06/04/23 Procedures Procedure Date Related Diagnosis Body Site [...] changes without acute fracture or subluxation. [facility] Impression: 1. No evidence of acute fracture or malalignment involving the thoracic spine 4[facility] Impression: 1. No acute chest disease [...] abnormality is identified 2 Hepatic stenosis 8[facility] Impression: 1. Nondisplaced fracture through the [...] abnormality. 2. Multiple remote infarcts within the [facility] cerebral and cerebellar hemispheres redemonstrated. 3. No abnormal enhancement. Vital Signs Most recent to oldest [Reference Range]: 1 2 Heart Rate 104 bpm (06/04/23 1:17 PM) Blood Pressure 128/100mmHg (06/04/23 1:19 PM) 164/100mmHg (06/04/23 1:17 PM) Cuff Pulse Pressure 28 mmHg (06/04/23 1:19 PM) 64 mmHg (06/04/23 1:17 PM) BP Location # 1 Right Arm (06/04/23 1:19 PM) Left Arm (06/04/23 1:17 PM) Social History Social History Type Response Tobacco Cigarettes, Started age 24 Years. 1 Smoking Status Former Smoker, quit in last 30 days Sex Male 1Smoke about 1 pack a day [facility] Out[facility] Note * SONAM Crane, Dominique: PERFORM Event Display: [facility] Out[facility] Note Authored Date: [facility] OUTPATIENT NOTE Name: AVA BERRY Patient Number: [id number] : 1970 Date of Service: 06/04/2023 Chief Complaint: _Follow-up for aortoiliac and peripheral arterial disease HPI: _Mr. Berry is a middle-age male presents to Dr. Dominguez's vascular surgery clinic today fora follow-up appointment regarding his aortoiliac occlusive disease and peripheral arterial disease.Patient states that he has noted worsening discomfort in the left leg since being seen here 1 year ago. He does state to having some discomfort when just standing in the left calf, but states this sometimes feels like it is shooting down his leg as well. He also states to having a different type ofdiscomfort when he walks, limiting his ambulation to about 50 yards or less before his left calf bothers him enough to stop walking. He denies any rest pain in the feet or toes, discoloration of the feet or toes, nonhealing wounds or ulcerations, right leg symptoms. Additionally he denies any significant changes in his health since being seen here 1 year ago. He does continue to smoke cigarettes,but is working on quitting. His aortoiliac ultrasound performed prior to today's appointment demonstrates patent bilateral common iliac stents, however, his right iliac stent has a mild stenosis noted, which is not hemodynamically significant. His left iliac artery stent demonstrates a significant stenosis and monophasic flowdistal to the stent. His bilateral lower extremity arterial ultrasound demonstrates mild diffuse disease throughout the right lower extremity, and a right leg LILLIE of 0.88, a decrease from last year when it was 1.08. His left lower extremity redemonstrates his left SFAO, and a left leg LILLIE of 0.59, decreased from 0.75 1- year ago. Current Home Meds: (Last Updated 10/03 15:55) amLODIPine (amLODIPine 10 mg oral tablet) TAKE 1 TABLET BY MOUTH EVERY DAY aspirin (aspirin 81 mg oral delayed release tablet) 81 mg PO Daily atorvastatin (atorvastatin 80 mg oral tablet) TAKE 1 TABLET BY MOUTH EVERYDAY AT BEDTIME clopidogrel (clopidogrel 75 mg oral tablet) TAKE 1 TABLET BY MOUTH EVERY DAY lisinopril (lisinopril 40 mg oral tablet) TAKE 1 TABLET BY MOUTH EVERY DAY nicotine (nicotine 14 mg/24 hr transdermal film, extended release) APPLY 1 PATCH TRANSDERMAL DAILY ondansetron (Zofran 4 mg oral tablet) 4 mg PO bid PRN: as needed for nausea/vomiting pantoprazole (pantoprazole 40 mg oral delayed release tablet) TAKE 1 TABLET BY MOUTH EVERY DAY Allergies and Sensitivities: NKA Past Medical History: Problems: Aortoiliac occlusive disease Peripheral arterial disease Chest pain Bilateral leg and foot pain Rib pain on left side Night sweats Tobacco user Carotidynia Tobacco use Bronchospasm Cough Leukocytosis Stenosis of iliac artery S/P orthopedic surgery, follow-up exam Left hand paresthesia Type 2 diabetes, HbA1c goal < 7% Left ankle pain Plantar fasciitis, bilateral Chronic headache Memory loss Atypical pigmented skin lesion Left tibialis posterior tendinitis Anterior leg pain (atherosclerosis) Superior mesenteric artery stenosis Retained food in stomach Nodule of esophagus Nicotine dependence Left-sided weakness Left foot pain Left eye symptoms IgA deficiency, selective Gastropathy Hiatal hernia GERD without esophagitis Abdominal pain, epigastric Dyslipidemia Carotid thromboses, right Postprandial vomiting History of stroke Numbness and tingling Weakness Weight disorder OBJECTIVE Vitals: Last Updated 06/04/23 13:19 Date Temp BP Location Pulse RR SpO2 Pain 06/04/23 128/100 Right Arm 06/04/23 0 06/04/23 164/100 Left Arm 104 97 Vital Signs are the last 3 documented. No Orthostatic Data Available Height and Weight: Last Updated 04/03/22 11:31 Date BMI Wt(kg) Wt(lb) Method Ht(cm) (ft-in) Method 04/03/22 112.1 247 Standing Scale 10/31/21 105.9 233 Standing Scale 10/20/21 32.59 105.6 232 Standing Scale 180 5-11 Heights and Weights are the last 3 documented. Physical Exam Constitutional: In general patient is a overweight but healthy-appearing well- nourished well-developed middle-aged male no distress. He is alert and oriented without any focal deficits. His carotids do not demonstrate a bruit. His heart is regular, his lungs are decreased but clear. His abdomen is soft nontender with normoactive bowel sounds in all 4 quadrants. There is no pulsatile mass. Brachial and radial pulses are +3. Femoral pulses are +2 on the right, nonpalpable on the left. His left lower extremity distal pulses are nonpalpable. His right lower extremity distal pulses are +2. His toes demonstrate brisk capillary refill and no sign of distal ischemia. ASSESSMENT: _ PLAN: _ 1 ) _aortoiliac occlusive disease Patient is a history of aortoiliac occlusive disease, having undergone bilateral, iliac stent placement in the past by Dr. Dominguez. He now appears to have restenosis in the stents, mild on the right and significant on the left, which is reducing the inflow to the left lower extremity. In combinationwith his left SFA occlusion, his left LILLIE has now dropped to 0.59, and he now appears to have left calf claudication symptoms. He also has left calf symptoms when just standing and sometimes just sitting in certain positions, however, which would not be related to his arteries, and so he may have some element of neurogenic etiology in addition to his arterial insufficiency. Patient was advised that correcting the arterial stenoses would likely result in some improvement in his symptoms, but is unlikely to alleviate all of his discomfort, as this will have no effect on his standing or sitting symptoms. Due to the iliac artery stenosis, and his SFA occlusion, we recommended that he undergo a left leg angiography with possible intervention. The procedure risks benefits and alternatives were discussedwith the patient by myself at Dr. Dominguez's request. Patient expresses understanding and agreement to proceed. 2 ) _peripheral arterial disease, left SFA occlusion See above Thank you for letting us participate in the care of this patient. I have personally spent_36__ minutes performing [id number] and ztk-gkzc-[id number]-face activities on this date of service.Time does not include separately reported services. Activities Include: _x_ review of the medical record x_ obtaining a history x__ physical exam/evaluation __ review labs x_ review radiology reports _x_ counseling/educating patient/family/caregiver __ discussion/referral to other healthcare professional _x_ documenting care in the medical record __ independent interpretation of results _x_ communication of results to patient/family/caregiver _x_ coordination of care Electronic Signature on File CC: MADHAVI Beckman [address] [address] * Electronically Reviewed/Signed by: Dominique Crane PA-C Author Signature Dt/Tm:06/04/2023 04:02 PM [facility] [place] [id number] Patient Care team information Care Team Personnel Name: SONAM Crane Lynn Position: Physician Router Setter Exempt - Vasc Surg Member Role: Lifetime Relationship Address: Address: [address] [place] [id number] Name: MADHAVI Jarvis Matthew J Position: Referring Member Role: Primary Care Provider Address: Address: [address] [address]
[2023-06-12] MEDS ORDERED: ALBUMIN HUMAN 5% 12.5 GM/250 ML VIAL IV ONE (10:00)
[2023-06-12] MEDS: LIDOCAINE 1% LOCAL 20 ML VIAL ONE ×3 (10:03→11:18)
[2023-06-12] MEDS: VISIPAQUE IV PRN (10:10)
[2023-06-12] MEDS ORDERED: PROPOFOL IV EMULSION 10 MG/ML 20 ML VIAL IV ONE ×2 (10:15→10:58)
[2023-06-12] MEDS ORDERED: PHENYLEPHRINE HCL 25 MG/250 ML NSS IV ONE (10:15)
[2023-06-12] MEDS ORDERED: SUCCINYLCHOLINE 100MG/5ML SYR IV ONE (10:15)
[2023-06-12] MEDS ORDERED: PHENYLEPHRINE 100MCG/ML 10ML SYR IV ONE (10:15)
[2023-06-12] MEDS ORDERED: ROCURONIUM BROMIDE 10 MG/ML 5 ML VIAL IV ONE ×2 (10:15→11:01)
[2023-06-12] MEDS ORDERED: SODIUM CHLORIDE 0.9% 250 ML IV PRN (10:15)
[2023-06-12] MEDS ORDERED: ePHEDrine sulfate 50 MG/5 ML SYR ONE (10:16)
--- NOTE | 2023-06-12 10:45 | Anesthesiology Consultation ---
Date of Service June 12, 2023 Assessment & Plan (1) Encounter for pre-operative examination: Chart Review Chart Review: Patient NOT seen in Pre Admission Testing emergent procedure Additional Notes Alerted by OR charge of conversion of local/sedation nursing case to general anesthetic due to loss of pulses in lower extremity. Patient reportedly received 4mg versed 200 mcg fentanyl seen on operating table with 6L oxymask, given emergent nature of procedure and patient unable to consent given recent sedation. Decision made to proceed without informed consent as wasted time to obtain consent would threaten limb perfusion. History Surgery Operation Date: 06/12/23 08:00 Proposed Procedures p Left Lower Extremity Angiogram with Intervention - Mati Dominguez MD Height/Weight Height: 5 ft 11 in Weight: 116.7 kg Allergies Allergy/AdvReac Type Severity Reaction Status Date / Time No Known Allergies Allergy Verified 06/12/23 05:43 Medications Home Medications Medication Instructions Recorded Confirmed Last Taken aspirin 81 mg tablet,delayed 81 mg PO QPM 12/26/19 06/12/23 06/11/23 21:00 release lisinopril 40 mg tablet 40 mg PO QPM #90 tabs 09/18/22 06/12/23 06/11/23 21:00 pantoprazole 40 mg tablet,delayed 40 mg PO QPM #90 tabs 09/18/22 06/12/23 06/11/23 21:00 release cholecalciferol (vitamin D3) 1,250 50,000 unit PO WEEKLY 8 weeks #8 03/20/23 06/12/23 Unknown mcg (50,000 unit) capsule caps metformin 500 mg tablet,extended 1,000 mg (2 x 500 mg) PO BID #120 03/20/23 06/12/23 06/09/23 release 24 hr tabs amlodipine 10 mg tablet 10 mg PO QPM #90 tabs 06/11/23 06/12/23 06/11/23 21:00 atorvastatin 80 mg tablet 80 mg PO QPM #90 tabs 06/11/23 06/12/23 06/11/23 21:00 clopidogrel 75 mg tablet 75 mg PO QPM #90 tabs 06/11/23 06/12/23 06/11/23 21:00 Active Medications Generic Name Dose Route Start Last Admin Trade Name Freq PRN Reason Stop Dose Admin Sodium Chloride 1,000 mls @ 100 mls/hr 06/12/23 06:00 06/12/23 07:44 Nss IV 06/12/23 15:59 Infused .Q10H [facility] Infusion Cefazolin Sodium 2,000 mg in 15 mls @ 3.75 mls/min 06/12/23 06:00 06/12/23 07:40 Ancef 2000mg IV 06/12/23 18:00 3.75 mls/min PREOP GROVER Administration Protocol Iodixanol 139 ml 06/12/23 10:09 06/12/23 10:10 Visipaque IV 06/16/23 10:08 119 ml UD PRN Administration Interaction Checking NPO Date Last Intake of Fluids: 06/11/23 Time Last Intake of Fluids: 19:00 Date Last Intake of Solids: 06/11/23 Time Last Intake of Solids: 17:00 Past Medical History Medical History Hepatic steatosis Type 2 diabetes mellitus GERD without esophagitis Gastroparesis Leukocytosis Family history of reaction to anesthesia MOTHER - TOOK A LITTLE LONGER TO WAKE UP FROM IT Carotid artery stenosis LEFT SIDE/PCP MONITORS ANNUALLY PVD (peripheral vascular disease) Hypertension Hyperlipidemia GERD (gastroesophageal reflux disease) CVA (cerebral vascular accident) PT REPORTS MINI STROKE 3 YEARS AGO (DENIES ANY CURRENT PROBLEMS) REASON FOR PLAVIX Past Family History Family History Father Family history of diabetes mellitus Myocardial infarction Mother Family history of diabetes mellitus Myocardial infarction Brother Myocardial infarction Denies family history of Ovarian cancer Prostate cancer Breast cancer Colorectal cancer Past Surgical History Surgical History History of cataract surgery LEFT History of esophagogastroduodenoscopy (EGD) History of herniorrhaphy History of tooth extraction History of vascular access device STENTS PLACED IN BILAT LEGS. Social History Smoking Status: Current some day smoker tobacco type: cigarettes Smoking cigarettes per day: usually 10/day no cigarettes in 2 weeks Do You Dip or Chew Tobacco: No Hx Alcohol Use: Yes alcohol intake frequency: holidays/special occasions only Hx Substance Use: No substance use type: does not use Physical Exam Vital Signs Last Vital Signs Temp 97.7 F 06/12/23 05:46 Pulse 61 04/23/24 09:50 Resp 18 06/12/23 09:50 BP 114/76 06/12/23 09:50 Pulse Ox 95 06/12/23 09:50 O2 Del Method Oxymask 06/12/23 09:50 O2 Flow Rate 6 06/12/23 09:50 Testing Laboratory Results 06/12/23 05:35 06/12/23 05:34 POC Glucose 143 H
[2023-06-12] MEDS ORDERED: SUGAMMADEX SODIUM 200 MG/2 ML VIAL IV ONE (11:10)
[2023-06-12] MEDS ORDERED: HEPARIN SOD (PORCINE) 1000 UNIT/ML ONE (11:11)
[2023-06-12] MEDS: GELATIN SPONGE SZ 100 ONE (11:16)
[2023-06-12] MEDS: THROMBIN FOR SOLN 20000 UNIT KIT ONE (11:17)
[2023-06-12] MEDS: BUPIVACAINE/EPINEPHRINE 0.5% MPF 1:200,000 30 ML VIAL ONE (11:18)
[2023-06-12] MEDS ORDERED: ONDANSETRON INJ 2 MG/ML 2 ML VIAL ONE (11:25)
[2023-06-12] MEDS: ceFAZolin 330 MG/ML 1 GM VIAL ONE (11:41)
[2023-06-12] MEDS: HEPARIN (PORCINE) 1000 UNIT/ML 10 ML (CATH LAB USE ONLY) ONE (11:42)
--- NOTE | 2023-06-12 12:02 | Post Operative Brief Note ---
Immediate Post Op Note v1 Date of Surgery June 12, 2023 Pre & Post Diagnosis Operation Date: 06/12/23 08:00 Pre-Op Diagnosis: Aortoiliac Occlusive Disease Post-Op Diagnosis: Aortoiliac Occlusive Disease I identified the patient and participated in the time-out.: Yes Procedure Operation Date: 06/12/23 08:00 Actual Procedures p Left Lower Extremity Angiogram, Percutaneous Transluminal Angioplasty and Stenting of Bilateral Iliac Arteries, Mechanical Thrombectomy of Left Iliac Artery, Moderate Sedation [id number](Bilateral) - Mati Dominguez MD s Left lower extremity thrombectomy, bovine patch angioplasty left common femoral artery, mechanical closure right femoral artery(Left) - Mati Dominguez MD Surgeon Mati Dominguez MD Cobbler Mckay MD Alyssa Estimated Blood Loss 100 Findings Consistent with Post-Op Diagnosis Drains Waters Catheter Anesthesia Type General Complications none Disposition Accompanied Patient To Recovery: No Disposition: Recovery Room
--- NOTE | 2023-06-12 12:12 | Operative Report ---
Post Operative Report Pre & Post Diagnosis Operation Date: 06/12/23 08:00 Operation Date: 06/12/23 08:00 Pre-Op Diagnosis: Aortoiliac Occlusive Disease Post-Op Diagnosis: Aortoiliac Occlusive Disease I identified the patient and participated in the time-out.: Yes Procedure Operation Date: 06/12/23 08:00 Actual Procedures p Left Lower Extremity Angiogram(Right) - Mati Dominguez MD Balloon angioplasty and covered stent placement of the bilateral common iliac arteries Mechanical thrombectomy of the left common iliac and external iliac arteries Left groin cutdown Open thrombectomy of the left iliac and SFA Patch angioplasty left FINISHING OPERATOR Mechanical device closure of right FINISHING OPERATOR Surgeon Mati Dominguez MD Drilling Engineer Kaden Ngo MD Estimated Blood Loss 100 Findings Consistent with Post-Op Diagnosis Occluded left common iliac stent with distal reconstitution at the distal SFA. Resolved following above procedure. Intraoperative occlusion of the left SFA. Following Elise embolectomy there was pulsatile flow and multiphasic DP and PT signals in the left foot Specimens None Anesthesia Type General Disposition Accompanied Patient To Recovery: No Disposition: Recovery Room Indications Occlusion of left common iliac artery Description of Procedure The patient was taken to the operating room and placed in the supine position. The bilateral groins were prepped and draped in the usual sterile fashion. A time-out was performed. Conscious sedation was given. The right groin was evaluated and the right common femoral artery was accessed under ultrasound guidance with standard micropuncture technique. A rim catheter was advanced into the infrarenal aorta. An angiogram was performed, demonstrating an occlusion of the left common iliac artery and prior stent. Attention was then turned to the left groin and the left common femoral artery was accessed under ultrasound guidance using standard micropuncture technique. A angled glide wire and angled glide catheter was used to cross the common iliac occlusion. At this point 4000U of IV heparin where given. A 7x40mm balloon was advanced up both common iliac arteries and were simultaneously inflated in kissing fashion. Next a VBX 8x59mm stent was advanced through the occlusion into the distal aorta on the left, and a VBX 8x39mm was advanced on the right. These were deployed simultaneously in kissing fashion. An angiogram was then performed showing thrombus within the left common and external iliac. Mechanical thrombectomy of the left iliac system was then performed using JetStream. Angiogram following this showed improvement however there was still thrombus within the iliac system. There was also an occlusion of the SFA. The left popliteal artery reconstituted via collaterals. Due to the extensive thrombus, the decision was made to convert to an open thrombectomy. General endotracheal anesthesia was induced. The right groin and left leg were prepped and draped circumferentially in the usual sterile fashion. A longitudinal incision was made at the location of the left common femoral artery using a #15 blade scalpel. Dissection was carried down through subcutaneous tissue using electrocautery followed by Metzenbaum scissions and the left common femoral artery was identified. The artery was mobilized proximally and distally to its arterial access and then the common femoral artery, left profunda femoris, and left SFA were controlled with vessel loops. Patient was systemically heparinized with another 4000U of IV heparin. Following heparin administration the aforementioned arteries were clamped in order The sheath was removed from the artery and the artery was opened longitudinally using Martinez scissors. There was minimal inflow and no backbleeding from the SFA or the profunda with clot seen at the origin of both. Clot was removed manually from the origin if the profunda and there was then good backbleeding. A #3 followed by #4 Elise were passed distally down the SFA. Some clot was retrieved. There was good backbleeding. The #4 Elise was passed proximally into the iliac artery. There was some clot retrieved. There was excellent inflow following the embolectomy. Patch angioplasty was then performed of the left FINISHING OPERATOR with a bovine pericardial patch using 5-0 Prolene suture. Just prior to completion of the patch all vessels were flushed with appropriate backbleeding. The patch was then completed and all vessels unclamped. At completion, vessels were unclamped and there was an excellent Doppler signal in the foot, DP and PT. There was pulsatile flow in the SFA and Profunda. The foot appeared warm. The wound was closed with interrupted 2-0 Vicryl sutures followed by 3-0 running subcutaneous Vicryl sutures. The skin was closed with maryjane. An AngioStar closure device was deployed in the right groin. The site was hemostatic following deployment. There were no complications with deployment. Dr. Dominguez was present and scrubbed for the entire procedure. I attest to the content of the Intraoperative Record and any orders documented therein. Any exceptions are noted below. Supervising Physician Co-Signing Physician Notes Mati Dominguez MD
--- NOTE | 2023-06-12 12:52 | Anesthesiology Progress Note ---
Date of Service June 12, 2023 Anesthesia Post Procedure Vital Signs Vital Signs: Temp Pulse Pulse Resp BP BP Pulse Ox 06/12/23 12:30 75 18 102/69 96 06/12/23 12:20 89 17 96/83 L 93 06/12/23 12:10 90 20 93/72 L 94 06/12/23 12:03 97.7 F 91 H 18 91/43 L 93 06/12/23 09:55 68 18 124/78 95 06/12/23 09:50 61 18 114/76 95 06/12/23 09:45 67 18 110/78 95 06/12/23 09:40 69 18 123/79 95 06/12/23 09:35 75 18 113/67 95 06/12/23 09:30 73 18 110/76 96 06/12/23 09:25 66 18 123/65 93 06/12/23 09:20 65 18 109/68 93 06/12/23 09:15 67 18 103/69 92 06/12/23 09:10 67 18 108/66 92 06/12/23 09:05 77 18 100/67 93 06/12/23 09:00 67 18 105/70 93 06/12/23 08:55 65 18 101/68 93 06/12/23 08:50 67 18 104/68 95 06/12/23 08:45 63 18 110/72 94 06/12/23 08:40 62 18 115/61 94 06/12/23 08:35 70 18 108/73 93 06/12/23 08:30 70 18 115/77 93 06/12/23 08:25 70 18 102/75 93 06/12/23 08:20 66 18 106/66 94 06/12/23 08:15 79 18 101/74 93 06/12/23 08:10 77 18 107/74 97 06/12/23 07:54 67 18 108/72 97 06/12/23 05:46 97.7 F 93 H 20 131/92 96/71 L 96 O2 Del Method O2 Flow Rate 06/12/23 12:30 Oxymask 5 06/12/23 12:20 Oxymask 5 06/12/23 12:10 Oxymask 10 06/12/23 12:03 Oxymask 10 06/12/23 09:55 Oxymask 6 06/12/23 09:50 Oxymask 6 06/12/23 09:45 Oxymask 6 06/12/23 09:40 Oxymask 6 06/12/23 09:35 Oxymask 6 06/12/23 09:30 Oxymask 6 06/12/23 09:25 Oxymask 6 06/12/23 09:20 Oxymask 6 06/12/23 09:15 Oxymask 6 06/12/23 09:10 Oxymask 6 06/12/23 09:05 Oxymask 6 06/12/23 09:00 Oxymask 6 06/12/23 08:55 Oxymask 6 06/12/23 08:50 Oxymask 6 06/12/23 08:45 Oxymask 6 06/12/23 08:40 Oxymask 6 06/12/23 08:35 Oxymask 6 06/12/23 08:30 Oxymask 6 06/12/23 08:25 Oxymask 6 06/12/23 08:20 Oxymask 6 06/12/23 08:15 Oxymask 6 06/12/23 08:10 Oxymask 6 06/12/23 07:54 Oxymask 6 06/12/23 05:46 Room Air Transfer of Care Handoff Completed per policy Notes Mental Status: alert / awake / arousable and participated in evaluation Patient Amnestic to Procedure: Yes Nausea / Vomiting: adequately controlled Pain: adequately controlled Airway Patency, RR, SpO2: stable & adequate BP & HR: stable & adequate Hydration State: stable & adequate Anesthetic Complications: no major complications apparent and Pt Satisfied with anesthetic care
[2023-06-12 12:58] LABS: Basophils % (auto) 0.8 %; Eosinophils # (auto) 0.13 K/uL (0.00-0.50); Hematocrit (blood only) 41.3 % (42.0-52.0); Hemoglobin 13.6 g/dl (14.0-18.0); Immature Granulocytes % (auto) 0.8 %; Lymphocytes # (auto) 2.79 K/uL (1.20-3.40); Lymphocytes % (auto) 21.7 %; Mean Corpuscular Hemoglobin 28.2 pg (25.0-34.0); Mean Corpuscular Hgb Conc 32.9 g/dL (32.0-36.0); Mean Corpuscular Volume 85.7 fL (80.0-100.0); Mean Platelet Volume 10.6 fL (9.4-12.4); Monocytes # (auto) 0.65 K/uL (0.11-0.59); Monocytes % (auto) 5.1 %; Neutrophils # (auto) 9.09 K/uL (1.40-6.50); Neutrophils % (auto) 70.6 %; Platelet Count 226 K/uL (130-400); RDW Coefficient of Variation 14.6 % (11.5-14.5); RDW Standard Deviation 45.6 fL (36.4-46.3); Red Blood Count 4.82 M/uL (4.70-6.10); White Blood Count 12.86 K/ul (4.8-10.8)
[2023-06-12] MEDS: PAPAVERINE HCL INJ 30 MG/ML 2 ML VIAL ONE (13:57)
[2023-06-12] MEDS: LACTATED RINGER'S 1,000 ML IV SCH (14:09)
[2023-06-12] MEDS: Heparin IV Adult Wt-Based Standard *NO* INITIAL Bolus Protocol IV SCH (14:10)
[2023-06-12] MEDS: HEPARIN SODIUM/DEXTROSE 25,000 UNITS/500 ML BAG IV SCH (14:24)
[2023-06-12] MEDS: ceFAZolin 2000MG 2,000 MG/15 ML SYR IV SCH (14:37)
[2023-06-12 14:39] LABS: Basophils # (auto) 0.08 K/uL (0.00-0.20); Basophils % (auto) 0.6 %; Eosinophils # (auto) 0.08 K/uL (0.00-0.50); Eosinophils % (auto) 0.6 %; Hematocrit (blood only) 40.9 % (42.0-52.0); Hemoglobin 13.6 g/dl (14.0-18.0); Immature Granulocytes # (auto) 0.09 K/uL (0.01-0.20); Immature Granulocytes % (auto) 0.6 %; Lymphocytes # (auto) 3.31 K/uL (1.20-3.40); Lymphocytes % (auto) 22.9 %; Mean Corpuscular Hemoglobin 28.3 pg (25.0-34.0); Mean Corpuscular Hgb Conc 33.3 g/dL (32.0-36.0); Mean Platelet Volume 10.4 fL (9.4-12.4); Monocytes # (auto) 0.87 K/uL (0.11-0.59); Neutrophils # (auto) 10.03 K/uL (1.40-6.50); Neutrophils % (auto) 69.3 %; Platelet Count 225 K/uL (130-400); RDW Coefficient of Variation 14.7 % (11.5-14.5); RDW Standard Deviation 45.3 fL (36.4-46.3); Red Blood Count 4.81 M/uL (4.70-6.10); White Blood Count 14.46 K/ul (4.8-10.8)
[2023-06-12] MEDS: oxyCODONE/ACETAMINOPHEN 5mg/325mg TAB PO PRN (14:45)
[2023-06-12 14:49] LABS: Partial Thromboplastin Time 27 Seconds (21-31); Prothrombin Time 11.3 Seconds (9.0-12.0)
[2023-06-12] MEDS: PANTOprazole 40 MG TAB PO SCH (20:42)
[2023-06-12] MEDS: lisinopril 40 MG TAB PO SCH (20:42)
[2023-06-12] MEDS: ATORVASTATIN 40 MG TAB PO SCH (20:43)
[2023-06-12] MEDS: CLOPIDOGREL BISULFATE 75 MG TAB PO SCH (20:43)
[2023-06-12] MEDS: amLODIPine BESYLATE 5 MG TAB PO SCH (20:43)
[2023-06-12] MEDS: ASPIRIN 81 MG ECTAB PO SCH (20:44)
[2023-06-13 07:16] LABS: BUN Creatinine Ratio 13.8 (10-20); Calcium 8.4 mg/dl (8.6-10.3); Creatinine Clr Calc Pharmacy 118.1 ml/min; Est GFR (African American) 106.9 ml/min; Est GFR (Non-African American) 92.2 ml/min; Potassium 3.5 mmol/L (3.5-5.1)
[2023-06-13] MEDS: [UNRECOGNIZED DRUG - REMARK] ONE (09:04)
[2023-06-13] MEDS: ONDANSETRON INJ 2 MG/ML 2 ML VIAL IV PRN (09:06)
[2023-06-13] MEDS: APIXABAN 5 MG TABLET PO SCH (09:30)
[2023-06-13 10:18] LABS: Basophils % (auto) 0.7 %; Eosinophils # (auto) 0.24 K/uL (0.00-0.50); Eosinophils % (auto) 1.7 %; Hemoglobin 12.7 g/dl (14.0-18.0); Immature Granulocytes # (auto) 0.07 K/uL (0.01-0.20); Immature Granulocytes % (auto) 0.5 %; Lymphocytes # (auto) 3.66 K/uL (1.20-3.40); Mean Corpuscular Hgb Conc 32.6 g/dL (32.0-36.0); Mean Corpuscular Volume 85.9 fL (80.0-100.0); Mean Platelet Volume 11.1 fL (9.4-12.4); Monocytes # (auto) 1.14 K/uL (0.11-0.59); Monocytes % (auto) 8.1 %; Neutrophils # (auto) 8.84 K/uL (1.40-6.50); Platelet Count 216 K/uL (130-400); RDW Coefficient of Variation 14.6 % (11.5-14.5); Red Blood Count 4.54 M/uL (4.70-6.10); White Blood Count 14.05 K/ul (4.8-10.8)
--- NOTE | 2023-06-13 12:03 | Surgery Progress Note ---
Date of Service June 13, 2023 Assessment & Plan (1) S/P vascular surgery: Plan: Pt now POD #1 after LLE angio with BL iliac artery stenting and emergent LLE open thrombectomy with bovine INSPECTOR CONVEYOR LINE patch. Doing well post op. Ambulating in room without assistance. Minimal pain. 1 episode N/V, resolved. Remove ramirez catheter and void trial. Due to intraoperative acute arterial occlusion, pt started on eliquis in addition to his 81mg ASA and plavix. Discussed with tal Martin for d/c home today. Admission and Anticipated Discharge Date Admission Date: June 12, 2023 Subjective 52 yo m POD #1 after LLE angio with BL ilaic stenting and LLE open thrombectomy with bovine INSPECTOR CONVEYOR LINE patch, seen in f/u today. Pt admits discomfort in L groin incision, and fatigue. Did have some N/V immediately after eating his entire breakfast, none since. No foot or leg pain otherwise. No other complaints. Review of Systems Review of Systems: All systems reviewed & are unremarkable except as noted in HPI & below Physical Exam Constitutional: WD/WN, vitals as above cooperative and comfortable; not in distress Neck: trachea midline Respiratory: normal respiratory effort, lungs clear to auscultation Auscultation: + diminished lung sounds Cardiovascular: Rate/Rhythm: regular rate and regular rhythm Vessels: femoral pulses present, posterior tibial pulses present, dorsalis pedis pulses present and radial pulses present; + abnormal peripheral pulses Extremities: normal capillary refill; no edema Gastrointestinal (Abdomen): Inspection/Auscultation: abdomen normal to inspection and normal bowel sounds Percussion/Palpation: abdomen soft; abdomen nontender Musculoskeletal: no cyanosis or clubbing, extremities motor strength 5/5 Skin: no rashes, warm and dry + incision (L groin incision dressing intact, +mild tender, no hematoma) Neurologic: moves all extremities and awake; no focal motor deficits and not confused Psychiatric: A+Ox3, euthymic affect Results & Data Vital Signs (Past 12 Hours) Vital Signs Temp Pulse Pulse Resp BP Pulse Ox Pulse Ox 06/13/23 11:37 36.6 C 90 16 109/68 98 06/13/23 11:33 94 06/13/23 09:31 81 114/68 93 06/13/23 09:08 86 16 143/76 H 92 06/13/23 07:51 36.5 C 70 14 102/64 92 06/13/23 07:41 06/13/23 02:43 36.7 C 72 18 115/68 96 Pulse Ox O2 Del Method O2 Flow Rate O2 Flow Rate O2 Flow Rate 06/13/23 11:37 Room Air 06/13/23 11:33 90 2 2 06/13/23 09:31 Nasal Cannula 2 06/13/23 09:08 Room Air 06/13/23 07:51 Room Air 06/13/23 07:41 Room Air 06/13/23 02:43 Nasal Cannula 2
[2023-06-14] MEDS ORDERED: ERGOCALCIFEROL 1250 MCG (50,000 UNITS) CAP PO SCH (09:00)
--- NOTE | 2023-06-15 13:16 | Discharge Summary ---
Date of Service June 15, 2023 Admission HPI Per Admitting Provider Name: AVA BERRY Patient Number: [id number] : 1970 Date of Service: 06/04/2023 Chief Complaint: _Follow-up for aortoiliac and peripheral arterial disease HPI: _Mr. Berry is a middle-age male presents to Dr. Dominguez's vascular surgery clinic today for a follow-up appointment regarding his aortoiliac occlusive disease and peripheral arterial disease. Patient states that he has noted worsening discomfort in the left leg since being seen here 1 year ago. He does state to having some discomfort when just standing in the left calf, but states this sometimes feels like it is shooting down his leg as well. He also states to having a different type of discomfort when he walks, limiting his ambulation to about 50 yards or less before his left calf bothers him enough to stop walking. He denies any rest pain in the feet or toes, discoloration of the feet or toes, nonhealing wounds or ulcerations, right leg symptoms. Additionally he denies any significant changes in his health since being seen here 1 year ago. He does continue to smoke cigarettes, but is working on quitting. His aortoiliac ultrasound performed prior to today's appointment demonstrates patent bilateral common iliac stents, however, his right iliac stent has a mild stenosis noted, which is not hemodynamically significant. His left iliac artery stent demonstrates a significant stenosis and monophasic flow distal to the stent. His bilateral lower extremity arterial ultrasound demonstrates mild diffuse disease throughout the right lower extremity, and a right leg LILLIE of 0.88, a decrease from last year when it was 1.08. His left lower extremity redemonstrates his left SFAO, and a left leg LILLIE of 0.59, decreased from 0.75 1- year ago. Current Home Meds: (Last Updated 10/03 15:55) amLODIPine (amLODIPine 10 mg oral tablet) TAKE 1 TABLET BY MOUTH EVERY DAY aspirin (aspirin 81 mg oral delayed release tablet) 81 mg PO Daily atorvastatin (atorvastatin 80 mg oral tablet) TAKE 1 TABLET BY MOUTH EVERYDAY AT BEDTIME clopidogrel (clopidogrel 75 mg oral tablet) TAKE 1 TABLET BY MOUTH EVERY DAY lisinopril (lisinopril 40 mg oral tablet) TAKE 1 TABLET BY MOUTH EVERY DAY nicotine (nicotine 14 mg/24 hr transdermal film, extended release) APPLY 1 PATCH TRANSDERMAL DAILY ondansetron (Zofran 4 mg oral tablet) 4 mg PO bid PRN: as needed for nausea/vomiting pantoprazole (pantoprazole 40 mg oral delayed release tablet) TAKE 1 TABLET BY MOUTH EVERY DAY Allergies and Sensitivities: NKA Past Medical History: Problems: Aortoiliac occlusive disease Peripheral arterial disease Chest pain Bilateral leg and foot pain Rib pain on left side Night sweats Tobacco user Carotidynia Tobacco use Bronchospasm Cough Leukocytosis Stenosis of iliac artery S/P orthopedic surgery, follow-up exam Left hand paresthesia Type 2 diabetes, HbA1c goal < 7% Left ankle pain Plantar fasciitis, bilateral Chronic headache Memory loss Atypical pigmented skin lesion Left tibialis posterior tendinitis Anterior leg pain (atherosclerosis) Superior mesenteric artery stenosis Retained food in stomach Nodule of esophagus Nicotine dependence Left-sided weakness Left foot pain Left eye symptoms IgA deficiency, selective Gastropathy Hiatal hernia GERD without esophagitis Abdominal pain, epigastric Dyslipidemia Carotid thromboses, right Postprandial vomiting History of stroke Numbness and tingling Weakness Weight disorder OBJECTIVE Vitals: Last Updated 06/04/23 13:19 Date Temp BP Location Pulse RR SpO2 Pain 06/04/23 128/100 Right Arm 06/04/23 0 06/04/23 164/100 Left Arm 104 97 Vital Signs are the last 3 documented. No Orthostatic Data Available Height and Weight: Last Updated 04/03/22 11:31 Date BMI Wt(kg) Wt(lb) Method Ht(cm) (ft-in) Method 04/03/22 112.1 247 Standing Scale 10/31/21 105.9 233 Standing Scale 10/20/21 32.59 105.6 232 Standing Scale 180 5-11 Heights and Weights are the last 3 documented. Physical Exam Constitutional: In general patient is a overweight but healthy-appearing well- nourished well-developed middle-aged male no distress. He is alert and oriented without any focal deficits. His carotids do not demonstrate a bruit. His heart is regular, his lungs are decreased but clear. His abdomen is soft nontender with normoactive bowel sounds in all 4 quadrants. There is no pulsatile mass. Brachial and radial pulses are +3. Femoral pulses are +2 on the right, nonpalpable on the left. His left lower extremity distal pulses are nonpalpable. His right lower extremity distal pulses are +2. His toes demonstrate brisk capillary refill and no sign of distal ischemia. ASSESSMENT: _ PLAN: _ 1 ) _aortoiliac occlusive disease Patient is a history of aortoiliac occlusive disease, having undergone bilateral, iliac stent placement in the past by Dr. Dominguez. He now appears to have restenosis in the stents, mild on the right and significant on the left, which is reducing the inflow to the left lower extremity. In combination with his left SFA occlusion, his left LILLIE has now dropped to 0.59, and he now appears to have left calf claudication symptoms. He also has left calf symptoms when just standing and sometimes just sitting in certain positions, however, which would not be related to his arteries, and so he may have some element of neurogenic etiology in addition to his arterial insufficiency. Patient was advised that correcting the arterial stenoses would likely result in some improvement in his symptoms, but is unlikely to alleviate all of his discomfort, as this will have no effect on his standing or sitting symptoms. Due to the iliac artery stenosis, and his SFA occlusion, we recommended that he undergo a left leg angiography with possible intervention. The procedure risks benefits and alternatives were discussed with the patient by myself at Dr. Dominguez's request. Patient expresses understanding and agreement to proceed. 2 ) _peripheral arterial disease, left SFA occlusion See above Thank you for letting us participate in the care of this patient. I have personally spent_36__ minutes performing [id number] and [id number] activities on this date of service.Time does not include separately reported services. Activities Include: _x_ review of the medical record x_ obtaining a history x__ physical exam/evaluation __ review labs x_ review radiology reports _x_ counseling/educating patient/family/caregiver __ discussion/referral to other healthcare professional _x_ documenting care in the medical record __ independent interpretation of results _x_ communication of results to patient/family/caregiver _x_ coordination of care Signature Line Electronic Signature on File CC: MADHAVI Beckman [address] [facility] [address] * Electronically Reviewed/Signed by: Dominique Crane PA-C Author Signature Dt/Tm:06/04/2023 04:02 PM [facility] [place] [address], [address] [place] [address] LM Result Type: HVI Outpt Note Date of Service: June 04, 2023 15:53 EDT Authorization Status: Final Author or Import Date: SONAM Crane Lynn on June 04, 2023 16:02 EDT Verified By: SONAM Crane Lynn on June 04, 2023 16:02 EDT Encounter info: [id number], [facility], Clinic, 06/04/2023 - 06/04/2023 Admission Exam Per Admitting Provider Constitutional: In general patient is a overweight but healthy-appearing well- nourished well-developed middle-aged male no distress. He is alert and oriented without any focal deficits. His carotids do not demonstrate a bruit. His heart is regular, his lungs are decreased but clear. His abdomen is soft nontender with normoactive bowel sounds in all 4 quadrants. There is no pulsatile mass. Brachial and radial pulses are +3. Femoral pulses are +2 on the right, nonpalpable on the left. His left lower extremity distal pulses are nonpalpable. His right lower extremity distal pulses are +2. His toes demonstrate brisk capillary refill and no sign of distal ischemia. Principal Diagnosis 1. s/p Angiography with BL iliac HOLE PUNCHER STRAP/Stents, open thrombectomy of L iliac art and SFA, bovine patch angioplasty of L PIPELINES SUPERINTENDENT 2. Acute arterial occlusion 3. AIOD 4. PAD Discharge Exam Constitutional WD/WN, vitals as above cooperative and comfortable; not in distress Neck trachea midline Respiratory normal respiratory effort, lungs clear to auscultation Auscultation: + diminished lung sounds Cardiovascular Rate/Rhythm: regular rate and regular rhythm Vessels: femoral pulses present, posterior tibial pulses present, dorsalis pedis pulses present and radial pulses present; + abnormal peripheral pulses Extremities: normal capillary refill; no edema Gastrointestinal (Abdomen) Inspection/Auscultation: abdomen normal to inspection and normal bowel sounds Percussion/Palpation: abdomen soft; abdomen nontender Musculoskeletal no cyanosis or clubbing, extremities motor strength 5/5 Skin no rashes, warm and dry + incision (L groin incision dressing intact, +mild tender, no hematoma) Neurologic moves all extremities and awake; no focal motor deficits and not confused Psychiatric A+Ox3, euthymic affect Discharge Data Allergies Allergy/AdvReac Type Severity Reaction Status Date / Time No Known Allergies Allergy Verified 06/12/23 05:43 Procedures Performed Operation Date: 06/12/23 08:00 Actual Procedures p Left Lower Extremity Angiogram, Percutaneous Transluminal Angioplasty and Stenting of Bilateral Iliac Arteries, Mechanical Thrombectomy of Left Iliac Artery, Moderate Sedation [id number](Bilateral) - Mati Dominguez MD s Left lower extremity thrombectomy, bovine patch angioplasty left common femoral artery, mechanical closure right femoral artery(Left) - Mati Dominguez MD Ordered Studies 06/12/23 07:21 EV angio LE LT Routine Hospital Course (1) S/P vascular surgery: Pt now POD #1 after LLE angio with BL iliac artery stenting and emergent LLE open thrombectomy with bovine PIPELINES SUPERINTENDENT patch. Doing well post op. Ambulating in room without assistance. Minimal pain. 1 episode N/V, resolved. Remove ramirez catheter and void trial. Due to intraoperative acute arterial occlusion, pt started on eliquis in addition to his 81mg ASA and plavix. Discussed with tal Terrazas for d/c home today. Total Time Total Time Spent Total Time Spent (In Minutes): 0 Discharge Plan Discharge Items Patient Disposition: Home - Self-Care Reason For Visit: LEFT LOWER EXTREMITY OCCLUSION Discharge Diagnosis: 1. s/p LLE angio with BL iliac stenting, open thrombectomy with bovine PIPELINES SUPERINTENDENT patch 2. Acute arterial occlusion 3. Aortoiliac disease 4. Peripheral Arterial Disease Condition on Discharge: Good Activity: Per Instructions section Non-emergency contact: Primary Care Provider and Surgeon Call non-emergency contact if: you have any medication questions, your pain is not controlled, your pain is concerning for you, you have a fever, your wound has increased redness and your wound has increased drainage Follow-up/Referrals: Carter Jarvis CRNP [Primary Care Provider] - (Follow up with your PCP within 2 weeks) Mati Dominguez MD [Physician] - (Follow up with Dr Dominguez or Dominique Crane PA-C, in 2 weeks for staple removal) Diet: Carb Consistent or DM2 and Heart Healthy Addtl Attending Provider Instructions: ACTIVITY RECOMMENDATIONS: 1. May remove dressing tomorrow and shower, no soaking tub baths. 2. No lifting more than 10 lbs x 6 weeks SPECIAL CARE INSTRUCTIONS: Call your doctor if: * Temperature above 101 degrees * Pain not relieved by pain medicine ordered * There is increased drainage or redness from any incision * You have any unanswered questions or concerns. Pending Studies at Discharge: No Stand-Alone Forms: My [facility] uTaP, Smoking Cessation Medications and DC Order Prescriptions: New oxycodone-acetaminophen [Percocet] 5-325 mg Tablet 1 - 2 tab PO Q4H PRN (Reason: pain) Qty: 30 0RF Eliquis 5 mg Tablet 5 mg PO BID Qty: 60 11RF Continued pantoprazole 40 mg tablet,delayed release (DR/EC) 40 mg PO QPM Qty: 90 1RF lisinopril 40 mg tablet 40 mg PO QPM Qty: 90 1RF metformin 500 mg tablet extended release 24 hr 1,000 mg PO BID Qty: 120 2RF cholecalciferol (vitamin D3) 1,250 mcg (50,000 unit) capsule 50,000 unit PO WEEKLY 56 Days Qty: 8 0RF amlodipine 10 mg tablet 10 mg PO QPM Qty: 90 1RF atorvastatin 80 mg tablet 80 mg PO QPM Qty: 90 1RF clopidogrel 75 mg tablet 75 mg PO QPM Qty: 90 1RF aspirin 81 mg Tablet,Delayed Release (Dr/Ec) 81 mg PO QPM Discharge Orders: Discharge Order (Routine); Ordered 06/13/23 Ordered By: Dominique Crane Admission Data Admit Date/Time: 06/12/23 11:50 Attending Provider: Mati Dominguez Admit Provider: Mati Dominguez Primary Care Provider: Carter Jarvis Other Interventions: Discharge Summary Assessment (RN) Last Done: 06/13/23 13:37
== END 2023-06-13 15:14 | disposition home or self-care (01) | DRG 271 ==
LOC: ASU 05:14 → 3E 11:50
DX: T82.868A Thrombosis due to vascular prosthetic devices, implants and grafts, initial encounter; Z79.02 Long term (current) use of antithrombotics/antiplatelets; I70.8 Atherosclerosis of other arteries; Z79.82 Long term (current) use of aspirin; Z68.32 Body mass index [BMI] 32.0-32.9, adult; Y92.009 Unspecified place in unspecified non-institutional (private) residence as the place of occurrence of the external cause; E66.3 Overweight; I73.9 Peripheral vascular disease, unspecified; E11.51 Type 2 diabetes mellitus with diabetic peripheral angiopathy without gangrene; F17.210 Nicotine dependence, cigarettes, uncomplicated; Z95.828 Presence of other vascular implants and grafts; Y71.2 Prosthetic and other implants, materials and accessory cardiovascular devices associated with adverse incidents

== ENCOUNTER 2024-11-12 06:38 | Inpatient (IN) ==
--- NOTE | 2024-11-05 13:45 | Anesthesiology Consultation ---
Date of Service November 05, 2024 Assessment & Plan (1) Encounter for pre-operative examination: Chart Review Chart Review: Acceptable Risk for Surgery (pending carotid imaging from cardio office if available ) and Patient NOT seen in Pre Admission Testing - Please attempt to obtain most recent carotid imaging from cardiology (Dr Dean notes imaging in April 2020) - Check CXR DOS (to ensure previous pulmonary edema resolved/improved) - Check BSG AM DOS Buttock wound- seen by PCP 11/04/24 and started on Doxy- patient was to update surgeon's office but emailed surgeon's office as well to make them aware- will leave to surgeon's discretion with how to proceed -Infectious Disease screening: Per PAT nursing assessment on 11/05/24. No known infectious disease contacts in past 10 days or current infectious disease symptoms. No recent travel outside the country. Cardio office visit 11/04/24= "here for preop evaluation prior to complex vascular surgery being planned for next week... to have surgery as he is having resting claudication symptoms.. EKG is unchanged.. underwent a large open bypass surgery of his lower extremities without any complications June 2024... he can proceed and intermediate risk. I believe his risk of cardiac complications is in the range of 5%... having orthostatic symptoms... recommend reducing amlodipine to 5mg daily... discussed smoking cessation in detail... " PCP visit 11/04/24= "presents for well exam... developed buttock wound... Nonhealing buttock wound: WCx ordered. Start Doxycycline BID x10 days... Referred to wound care. He will notify vascular surgery of wound and current treatment plan... Planning for another vascular surgery to LLE 11/12/[address] Dominguez... History Surgery Operation Date: 11/12/24 08:00 Proposed Procedures p Right Common Femoral to Left Profunda Femoral Bypass, Left Lower Extremity Femoral to Popliteal Detour Bypass - Mati Dominguez MD s Left Common Femoral and Superficial Femoral Artery Endarterectomy - Mati Dominguez MD Height/Weight Height: 5 ft 11 in Weight: 99.79 kg Allergies Allergy/AdvReac Type Severity Reaction Status Date / Time No Known Allergies Allergy Verified 11/05/24 10:18 Medications Home Medications Medication Instructions Recorded Confirmed Last Taken aspirin 81 mg tablet,delayed 81 mg PO QPM 12/26/19 11/05/24 02/15/24 release pantoprazole 40 mg tablet,delayed 40 mg PO QPM #90 tabs 09/18/22 11/05/24 02/21/24 19:00 release albuterol sulfate 90 mcg/actuation 2 puff inhalation Q6H PRN 06/25/23 11/05/24 Unknown aerosol inhaler shortness of breath or wheezing #18 grams metformin 500 mg tablet,extended 1,000 mg (2 x 500 mg) PO BID #120 07/07/24 11/05/24 Unknown release 24 hr tabs blood-glucose meter (OneTouch #1 ea 07/08/24 11/04/24 Unknown Verio Flex Start kit) apixaban 5 mg tablet (Eliquis) 5 mg PO UD 07/15/24 11/05/24 Unknown tiotropium bromide 2.5 2 puff inhalation UD 07/15/24 11/05/24 Unknown mcg/actuation mist for inhalation (Spiriva Respimat) lisinopril 40 mg tablet 40 mg PO QPM #90 tabs 09/04/24 11/05/24 Unknown empagliflozin 10 mg tablet See Rx Instructions .Route 10/31/24 11/05/24 Unknown (Jardiance) .COMPLEX #90 tabs amlodipine 10 mg tablet 10 mg PO QPM #90 tabs 11/04/24 11/05/24 Unknown doxycycline hyclate 100 mg tablet 100 mg PO BID 10 days #20 tabs 11/04/24 11/05/24 Unknown ergocalciferol (vitamin D2) 1,250 1,250 mcg PO .COMPLEX #8 caps 11/04/24 11/05/24 Unknown mcg (50,000 unit) capsule atorvastatin 80 mg tablet 80 mg PO PM 11/05/24 11/05/24 Unknown Past Medical History Medical History Carotid artery stenosis "High grade stenosis of right subclavian with 50mmHg difference (2020), no ICA stenosis" per cardio records Family history of reaction to anesthesia Mother- "Took a little longer to wake up" Gastroparesis GERD (gastroesophageal reflux disease) History of stroke (2015) no residual effects per pt Hyperlipidemia Hypertension ANA LAURA (obstructive sleep apnea) no device Pressure sore of right buttock, saw pcp yesterday, started doxy PVD (peripheral vascular disease) - Aortoiliac occlusive disease - s/p bilateral common iliac stents (occluded stents June 2024)- underwent aorto to right iliac and aorto to left INSPECTOR SCALES onto the profunda bypass - current occlusion of left limb of aortic graft, left SFA occluded from with recon at the popliteral artery, there is a three vessel runoff per vascular records Type 2 diabetes mellitus Past Family History Family History Father Family history of diabetes mellitus Myocardial infarction Mother Family history of diabetes mellitus Myocardial infarction Brother Myocardial infarction Denies family history of Ovarian cancer Prostate cancer Breast cancer Colorectal cancer Past Surgical History Surgical History History of ankle surgery left History of cataract surgery bilat History of esophagogastroduodenoscopy (EGD) History of herniorrhaphy x2 History of laparotomy lysis of adhesions History of tooth extraction Hx of colonoscopy Hx of surgical procedure infrarenal aortic to right iliac bifurcation bypass as well is a left femoral/profunda femoris bypass Hx of vascular surgery bilat stents in legs Social History Smoking Status: Current every day smoker tobacco type: cigarettes Smoking cigarettes per day: 5 cigs per day > advised npo Do You Dip or Chew Tobacco: No Hx Alcohol Use: No alcohol intake frequency: holidays/special occasions only Hx Substance Use: No substance use type: does not use Lab Results Anesthesia Preop Results Results Anesthesia Widget: WBC 12.88 K/ul (4.8-10.8) H 11/04/24 Hgb 15.4 g/dl (14.0-18.0) 11/04/24 Hct 47.8 % (42.0-52.0) 11/04/24 Plt 319 K/uL (130-400) 11/04/24 Na 134 mmol/L (136-145) L 11/04/24 K 3.8 mmol/L (3.5-5.1) 11/04/24 Cl 106 mmol/L (98-107) 11/04/24 CO2 19 mmol/L (21-32) L 11/04/24 BUN 8 mg/dl (6-23) 11/04/24 Creat 0.83 mg/dl (0.6-1.4) 11/04/24 Glucose Level 141 mg/dl (70-99(Fasting)) H 11/04/24 TSH 0.735 uIu/ml (0.300-4.500) 11/04/24 HA1c 6.9 % (4.5-5.6) H 11/04/24 Testing Laboratory Results Chronic mild leukocytosis (per PCP records "Was evaluated by hematology. Continue to monitor.") Electrocardiogram Date: 11/04/24 Findings: + NSR @ (97bpm) Inferior infarct When compared to EKG from July 15, 2024- no significant change was found per cardio Chest X-Ray Date: 07/19/24 Mild improvement in interstitial pulmonary edema (Will repeat CXR DOS) Echocardiogram Date: 07/16/24 EF: 51% LV Function: normal (Low normal) RWMA: + none Other Findings: no LVH or no diastolic dysfunction Valvular Disease: + no significant valvular disease Mild RV dilation with normal systolic function Stress Test Date: 10/03/22 Type: DSE Negative dobutamine stress echo and EKG for myocardial ischemia at 89% MPHR Mild concentric LVH. Estimated LVEF 60%. No evidence of wall motion abnormalities present. Other Testing Aorta with Runoff CTA 10/03/24= Occlusion of the left-sided graft from the distal aorta to the left femoral artery. Occlusion distally at the right popliteal artery with reconstitution of the below knee arteries. Occlusion at the distal left SFA with reconstituted below the knee arteries.
[2024-11-12] MEDS ORDERED: MIDAZOLAM HCL 1 MG/ML 2ML VIAL ONE (07:16)
[2024-11-12] MEDS ORDERED: LIDOCAINE 2% 2 ML VIAL/AMP(20MG/ML) INFIL ONE (07:16)
[2024-11-12] MEDS ORDERED: PROPOFOL IV EMULSION 10 MG/ML 20 ML VIAL IV ONE (07:16)
[2024-11-12] MEDS ORDERED: ROCURONIUM BROMIDE 10 MG/ML 5 ML VIAL IV ONE ×4 (07:16→13:18)
[2024-11-12] MEDS ORDERED: DEXAMETHASONE SOD INJ 4 MG/ML VIAL ONE (07:16)
[2024-11-12] MEDS ORDERED: ONDANSETRON INJ 2 MG/ML 2 ML VIAL ONE ×2 (07:16→10:58)
[2024-11-12] MEDS ORDERED: SODIUM CHLORIDE 0.9% PF INJ 10 ML VIAL ONE (07:17)
[2024-11-12] MEDS ORDERED: HYDROmorphone INJ 2 MG/ML SYR/VIAL ONE (07:17)
[2024-11-12] MEDS ORDERED: HEPARIN SOD (PORCINE) 1000 UNIT/ML ONE ×4 (07:23→14:24)
[2024-11-12] MEDS ORDERED: NITROGLYCERIN/D5W 100 MCG/ML BTL ONE ×3 (07:28→07:33)
[2024-11-12] MEDS: SODIUM CHLORIDE 0.9% 1,000 ML IV SCH (07:30)
--- NOTE | 2024-11-12 07:36 | History & Physical Bridge Note ---
Date of Service November 12, 2024 History & Physical Bridge Note I have examined the patient, reviewed the History & Physical and in the interval since the performance of the History & Physical I have noted the following changes of clinical significance: no changes noted
--- NOTE | 2024-11-12 07:36 | History & Physical Report ---
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 Suarez. He has subsequently thrombosed the left limb of his aortic graft. He presents to the [place] [facility] for further evaluation and management. Today he reports that he is experiencing short distance claudication and pain at rest in his left leg when he is not dangling his leg. There are no wounds. On review of his non-invasive imaging he does appear to have occlusion of the left limb of his aortic graft. His left SFA is occluded from with recon at the popliteal artery, there is three vessel runoff. ON review of his vitals his tachycardic, SBP 98, sitting comfortably on room air. Current Home Meds: (Last Updated 10/29 10:11) albuterol (albuterol CFC free 90 mcg/inh MDI) 1 puff inhaled qid PRN: as needed for wheezing amLODIPine (amLODIPine 10 mg oral tablet) TAKE 1 TABLET BY MOUTH EVERY DAY apixaban (apixaban 5 mg oral tablet) 5 mg PO bid aspirin (aspirin 81 mg oral delayed release tablet) 81 mg PO Daily atorvastatin (atorvastatin 80 mg oral tablet) TAKE 1 TABLET BY MOUTH EVERYDAY AT BEDTIME empagliflozin (Jardiance) 10 mg PO qAM lisinopril (lisinopril 40 mg oral tablet) TAKE 1 TABLET BY MOUTH EVERY DAY metFORMIN (metFORMIN extended release) 500 mg PO bid with meals oxyCODONE (oxyCODONE 5 mg oral tablet) 5 mg PO q4h PRN: pain - moderate (4-6) oxyCODONE (oxyCODONE 5 mg oral tablet) 5 mg PO q6h PRN: as needed for pain pantoprazole (pantoprazole 40 mg oral delayed release tablet) 1 tab PO Daily Allergies and Sensitivities: NKA Past Medical History: Problems: S/P aorto-bifemoral bypass surgery Aortoiliac occlusive disease Peripheral arterial disease Chest pain Bilateral leg and foot pain Rib pain on left side Night sweats Tobacco user Carotidynia Tobacco use Bronchospasm Cough Leukocytosis Stenosis of iliac artery S/P orthopedic surgery, follow-up exam Left hand paresthesia Type 2 diabetes, HbA1c goal < 7% Left ankle pain Plantar fasciitis, bilateral Chronic headache Memory loss Atypical pigmented skin lesion Left tibialis posterior tendinitis Anterior leg pain (atherosclerosis) Superior mesenteric artery stenosis Retained food in stomach Nodule of esophagus Nicotine dependence Left-sided weakness Left foot pain Left eye symptoms IgA deficiency, selective Gastropathy Hiatal hernia GERD without esophagitis Abdominal pain, epigastric Dyslipidemia Carotid thromboses, right Postprandial vomiting History of stroke Numbness and tingling Weakness Weight disorder OBJECTIVE Vitals: Last Updated 10/29/24 10:13 Date Temp BP Location Pulse RR SpO2 Pain 10/29/24 98/66 Left Arm 110 95 0 09/22/24 100/62 Left Arm 126 97 07/30/24 118/70 Left Arm 94 Vital Signs are the last 3 documented. No Orthostatic Data Available Height and Weight: Last Updated 09/22/24 13:24 Date BMI Wt(kg) Wt(lb) Method Ht(cm) (ft-in) Method 09/22/24 98 216 Standing Scale 07/30/24 100.1 220 Standing Scale 07/22/24 101.7 224 Standing Scale Heights and Weights are the last 3 documented. Physical Exam General: no apparent distress HEENT: normocephalic, atraumatic Heart: regular rate and rhythm Chest: nonlabored breathing on room air Abdomen: soft, nontender, nondistended Extremity: Left lower extremity with monophasic DP Doppler signal, foot with dependent rubor, no wounds, motor intact, intermittent numbness to L great toe. Neuro: alert and oriented Skin: no rashes or lesions 30 Day Labs: No 30 Day Lab Data. ASSESSMENT: _ 53 yom with history of aortoiliac occlusive disease s/p open aortic bifurcated graft complicated by left limb occlusion. He presents today with LLE rest pain. We did discuss right to left femoral to profunda bypass and detour bypass to the below knee popliteal artery. PLAN: _ Aortoiliac occlusive disease Pt is s/p open bifurcated graft reconstruction with occlusion of his left limb. He presents today with rest pain in his left lower extremity. We did discuss right to left femoral to profunda bypass and detour bypass to the below knee popliteal artery. Prior to this we will obtain venous duplex ultrasound to determine suitability for the detour procedure. We will also have him seen by our cardiology colleagues for pre-op risk stratification. He is in agreement with this plan. I saw and evaluated the patient. Discussed with the resident and agree with the resident's findings and plan as documented in the resident's note. I have personally spent__35___ minutes performing [id number] and [id number]-cl-face activities on this date of service. Activities Include: _x_ review of the medical record _x_ obtaining a history _x_ physical exam/evaluation __ review labs _x_ review radiology reports x__ counseling/educating patient/family/caregiver __ discussion/referral to other healthcare professional _x_ documenting care in the medical record x__ independent interpretation of results cta at [facility] __ communication of results to patient/family/caregiver __ coordination of care Signature Line Electronic Signature on File Electronically Reviewed/Signed by: Lencho Slaughter DO Author Signature Dt/Tm:10/29/2024 11:12 AM Resident Division of General Surgery Electronically Reviewed/Signed by: Mati Dominguez MD Cosigner Signature Dt/Tm: 10/29/2024 11:34 AM Scooper Jared Tillman [facility] [address], [address] [place] [address] Result Type: Vascular Surgery Outpt Note Date of Service: October 29, 2024 10:54 EDT Authorization Status: Final Author or Import Date: DO Slaughter Andrew on October 29, 2024 11:12 EDT Verified By: MD Angelica, Mati Tesfaye on October 29, 2024 11:34 EDT Encounter info: [id number], [place] [id number], Clinic, 10/29/2024 - 10/29/2024 Allergies Allergy/AdvReac Type Severity Reaction Status Date / Time No Known Allergies Allergy Verified 11/12/24 06:53 Home Medications Medication Instructions Recorded Confirmed Type aspirin 81 mg tablet,delayed 81 mg PO QPM 12/26/19 11/12/24 History release pantoprazole 40 mg tablet,delayed 40 mg PO QPM #90 tabs 09/18/22 11/12/24 Rx release albuterol sulfate 90 mcg/actuation 2 puff inhalation Q6H PRN 06/25/23 11/12/24 Rx aerosol inhaler shortness of breath or wheezing #18 grams metformin 500 mg tablet,extended 1,000 mg (2 x 500 mg) PO BID #120 07/07/24 11/12/24 Rx release 24 hr tabs blood-glucose meter (OneTouch #1 ea 07/08/24 11/04/24 Rx Verio Flex Start kit) apixaban 5 mg tablet (Eliquis) 5 mg PO UD 07/15/24 11/12/24 History tiotropium bromide 2.5 2 puff inhalation UD 07/15/24 11/12/24 History mcg/actuation mist for inhalation (Spiriva Respimat) lisinopril 40 mg tablet 40 mg PO QPM #90 tabs 09/04/24 11/12/24 Rx empagliflozin 10 mg tablet See Rx Instructions .Route 10/31/24 11/12/24 Rx (Jardiance) .COMPLEX #90 tabs ergocalciferol (vitamin D2) 1,250 1,250 mcg PO .COMPLEX #8 caps 11/04/24 11/12/24 Rx mcg (50,000 unit) capsule atorvastatin 80 mg tablet (Lipitor) 80 mg PO PM 11/05/24 11/12/24 History doxycycline hyclate 100 mg tablet 100 mg PO BID 10 days #20 tabs 11/06/24 11/12/24 Rx amlodipine 10 mg tablet (Norvasc) 5 mg PO QPM 11/12/24 11/12/24 History Past Med/Surg History Problem List Encounter for pre-operative examination Vitamin D deficiency Abdominal adhesions Left inguinal hernia Aortic occlusion Elevated red blood cell count Daytime somnolence ANA LAURA (obstructive sleep apnea) S/P vascular surgery Patellofemoral arthritis Hepatic steatosis GERD without esophagitis Gastroparesis Leukocytosis PVD (peripheral vascular disease) Stenosis of left iliac artery Left hand weakness CVA (cerebral vascular accident) Medical History Carotid artery stenosis "High grade stenosis of right subclavian with 50mmHg difference (2020), no ICA stenosis" per cardio records Family history of reaction to anesthesia Mother- "Took a little longer to wake up" Gastroparesis GERD (gastroesophageal reflux disease) History of stroke (2015) no residual effects per pt Hyperlipidemia Hypertension ANA LAURA (obstructive sleep apnea) no device Pressure sore of right buttock, saw pcp yesterday, started doxy PVD (peripheral vascular disease) - Aortoiliac occlusive disease - s/p bilateral common iliac stents (occluded stents June 2024)- underwent aorto to right iliac and aorto to left S[employer]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 onto the profunda bypass - current occlusion of left limb of aortic graft, left SFA occluded from with recon at the popliteral artery, there is a three vessel runoff per vascular records Type 2 diabetes mellitus Surgical History History of ankle surgery left History of cataract surgery bilat History of esophagogastroduodenoscopy (EGD) History of herniorrhaphy x2 History of laparotomy lysis of adhesions History of tooth extraction Hx of colonoscopy Hx of surgical procedure infrarenal aortic to right iliac bifurcation bypass as well is a left femoral/profunda femoris bypass Hx of vascular surgery bilat stents in legs Family History Father Family history of diabetes mellitus Myocardial infarction Mother Family history of diabetes mellitus Myocardial infarction Brother Myocardial infarction Denies family history of Ovarian cancer Prostate cancer Breast cancer Colorectal cancer Social History Smoking Status: Current every day smoker Tobacco Type: Cigarettes Age Started Using Tobacco: 22; packs per day: 0.5; Cigarettes Per Day: 5 cigs per day > advised npo; Second Hand Exposure: No; Do You Dip or Chew Tobacco: No; Tobacco Cessation Education Requested by Patient: No Hx Alcohol Use: No Hx Substance Use: No Preferred Language: Tamazight Communication Ability: Effective Visual Impairment: No Limitations Hearing Ability: Normal Steam Conditioner Operator Required: No Beliefs That Will Affect Care: None marital status: Single Current Living Situation: Family Current Living Situation Comment: brother current occupational status: unemployed Other Information That Helps Us Care for You: No Feels Safe at Home: Yes Safety Concerns: Feels Safe At This Time Childhood Exposure to Second-Hand Smoke: Yes Diet: regular Diet Comment: regular caffeine: Yes (coffee) during the past year weight has: remained stable Dental Care, Regularly: No Physical Activity Frequency: 5-6 Times per Week Seatbelt Use: always Sunscreen Use: No Assistive Devices: Glasses Results & Data Vital Signs (Past 12 Hours) Vital Signs Temp Pulse Resp BP BP Pulse Ox O2 Del Method 11/12/24 07:09 37 C 82 18 136/75 120/76 97 Room Air
--- NOTE | 2024-11-12 07:45 | XRay Report ---
EXAM: XR chest 2V PA/lateral CLINICAL HISTORY: preop TECHNIQUE: An X-ray image of the chest was obtained in the AP projection. COMPARISON: CR dated 10/14/[address] dated 07/12/2023. FINDINGS: Pulmonary Parenchyma: The lungs are clear bilaterally. There is no evidence of consolidation, collapse, or focal opacities. No pulmonary nodules are identified. There is no evidence of pleural effusion or pleural thickening. Heart and Mediastinum: The heart size and shape are normal. There is no mediastinal widening or masses. No hilar or mediastinal lymphadenopathy is present. Bony Thorax: The bony thorax appears intact, without fractures or deformities. Soft Tissues: The soft tissues overlying the chest wall are unremarkable. IMPRESSION: 1. No acute cardiopulmonary abnormalities are identified. 2. No interval changes. Electronically signed by Alexandr Lopez 11-12-2024 07:45 AM
[2024-11-12] MEDS: GELATIN SPONGE SZ 100 ONE ×2 (09:11→14:54)
[2024-11-12] MEDS: THROMBIN FOR SOLN 20000 UNIT KIT ONE ×2 (09:12→15:44)
[2024-11-12] MEDS ORDERED: ceFAZolin 330 MG/ML 1 GM VIAL ONE ×2 (10:37)
[2024-11-12] MEDS ORDERED: ALBUMIN HUMAN 5% 12.5 GM/250 ML VIAL IV ONE ×2 (10:42→12:35)
[2024-11-12] MEDS ORDERED: PHENYLEPHRINE HCL 25 MG/250 ML NSS IV ONE (10:56)
[2024-11-12] MEDS ORDERED: SUGAMMADEX SODIUM 200 MG/2 ML VIAL IV ONE (10:58)
[2024-11-12] MEDS ORDERED: SODIUM CHLORIDE 0.9% 100 ML IV PRN ×2 (14:01→22:43)
[2024-11-12] MEDS: VISIPAQUE IV ONE (14:56)
[2024-11-12] MEDS: ceFAZolin 330 MG/ML 1 GM VIAL ONE (15:42)
--- NOTE | 2024-11-12 15:50 | Operative Report ---
Post Operative Report Pre & Post Diagnosis Operation Date: 11/12/24 08:00 Pre-Op Diagnosis: Left Iliac and Superficial Femoral Artery Occlusion Post-Op Diagnosis: Left Iliac and Superficial Femoral Artery Occlusion I identified the patient and participated in the time-out.: Yes Procedure Operation Date: 11/12/24 08:00 Actual Procedures p Bovine Patch Angioplasty Right Superficial Femoral Artery. Interposition Graft Left Common Femoral Artery, Left Common Femoral Artery to Left Profunda Artery Bypass, Femoral to Femoral Bypass Right to Left, Left Lower Extremity Endovascular Femoral Popliteal Bypass(Left), Ultrasound localization of left posterior tibial vein - Mati Dominguez MD Surgeon Mati Dominguez MD Printer Slotter Operator Denise,PAC Estimated Blood Loss 1,000 Findings Consistent with Post-Op Diagnosis Specimens none Anesthesia Type General Disposition Accompanied Patient To Recovery: No Disposition: Recovery Room I attest to the content of the Intraoperative Record and any orders documented therein. Any exceptions are noted below.
[2024-11-12] MEDS ORDERED: HYDROmorphone INJ 1 MG/ML SYRINGE IV PRN (16:11)
[2024-11-12] MEDS ORDERED: ATROPINE SULFATE 0.1 MG/ML 10ML SYR IV PRN (16:11)
[2024-11-12] MEDS ORDERED: ONDANSETRON INJ 2 MG/ML 2 ML VIAL IV PRN ×2 (16:11→17:45)
[2024-11-12] MEDS ORDERED: PROMETHAZINE HCL 6.25 MG in SODIUM CHLORIDE 0.9% 50 ML IV PRN (16:11)
[2024-11-12] MEDS: PHENYLEPHRINE/NSS 25 MG/250 ML BAG IV PRN (16:15)
--- NOTE | 2024-11-12 17:43 | Anesthesiology Progress Note ---
Date of Service November 12, 2024 Anesthesia Post Procedure Vital Signs Vital Signs: Temp Pulse Pulse Resp BP BP BP 11/12/24 17:00 75 12 123/72 111/52 L 11/12/24 16:50 88 14 124/68 128/54 L 11/12/24 16:45 36.6 C 73 13 135/76 125/57 L 11/12/24 16:40 84 12 119/73 123/51 L 11/12/24 16:35 71 14 135/76 86/40 L 11/12/24 16:25 36.4 C L 75 12 135/68 138/62 11/12/24 16:20 130/70 137/59 L 11/12/24 16:15 37.1 C 89 14 101/66 84/43 L 11/12/24 16:05 93 H 13 108/63 98/53 L 11/12/24 16:02 36.7 C 98 H 15 96/60 L 11/12/24 07:09 37 C 82 18 136/75 120/76 Pulse Ox O2 Del Method O2 Flow Rate 11/12/24 17:00 92 Room Air 11/12/24 16:50 100 Room Air 11/12/24 16:45 97 Room Air 11/12/24 16:40 95 Oxymask 2 11/12/24 16:35 99 Oxymask 2 11/12/24 16:25 95 Oxymask 7 11/12/24 16:20 11/12/24 16:15 100 Oxymask 7 11/12/24 16:05 95 Oxymask 15 11/12/24 16:02 96 Oxymask 15 11/12/24 07:09 97 Room Air Pain Intensity Left Leg: Pain Intensity: 4 Transfer of Care Handoff Completed per policy Notes Mental Status: alert / awake / arousable and participated in evaluation Patient Amnestic to Procedure: Yes Nausea / Vomiting: adequately controlled Pain: adequately controlled Airway Patency, RR, SpO2: stable & adequate BP & HR: stable & adequate Hydration State: stable & adequate Anesthetic Complications: no major complications apparent and Pt Satisfied with anesthetic care
[2024-11-12] MEDS ORDERED: PHARMACY GLYCEMIC MGMT CONSULT PRN (17:45)
[2024-11-12] MEDS ORDERED: EMPAGLIFLOZIN 10 MG TAB PO SCH (17:45)
[2024-11-12] MEDS ORDERED: NITROGLYCERIN/D5W 100MCG/ML 250 ML IV PRN (17:45)
[2024-11-12] MEDS ORDERED: ALBUTEROL HFA 8 GM INHALER INH PRN (17:45)
[2024-11-12 18:21] LABS: Hematocrit (blood only) 35.6 % (42.0-52.0); Hemoglobin 11.5 g/dl (14.0-18.0); Immature Granulocytes # (auto) 0.13 K/uL (0.01-0.20); Immature Granulocytes % (auto) 0.6 %; Mean Corpuscular Hemoglobin 26.4 pg (25.0-34.0); Mean Corpuscular Volume 81.7 fL (80.0-100.0); Platelet Count 230 K/uL (130-400); RDW Standard Deviation 47.5 fL (36.4-46.3); Red Blood Count 4.36 M/uL (4.70-6.10); White Blood Count 21.79 K/ul (4.8-10.8)
[2024-11-12] MEDS ORDERED: GLUCAGON FOR INJ 1 MG VIAL SQ PRN (18:30)
[2024-11-12] MEDS ORDERED: GLUCOSE 40% GEL 15 GM TUBE PO PRN (18:30)
[2024-11-12] MEDS ORDERED: CARBOHYDRATES FOR HYPOGLYCEMIA PO PRN (18:30)
[2024-11-12] MEDS ORDERED: GLUCOSE 10 TAB/TUBE PO PRN (18:30)
[2024-11-12] MEDS ORDERED: DEXTROSE 50% 50 ML SYRINGE IV PRN (18:30)
[2024-11-12] MEDS: HEPARIN (PORCINE) 1000 UNIT/ML 10 ML (CATH LAB USE ONLY) ONE (19:31)
[2024-11-12] MEDS: SODIUM CHLORIDE 0.9% 500 ML IV SCH (19:39)
[2024-11-12] MEDS: UMECLIDINIUM BROMIDE 62.5MCG/BLISTER 7 PUFFS/INHALER INH SCH (20:13)
[2024-11-12] MEDS: MoRPHine SULFATE 4 MG/ML 1 ML CARP\\VIAL IV PRN (20:31)
--- NOTE | 2024-11-12 20:57 | Critical Care Consultation ---
<Statement entered by Andrew López MD - 11/13/24 08:18> I, Andrew López MD, supervised and reviewed the physical exam, assessment, plan, and management as documented by the Advanced Care Provider for this patient encounter. I discussed the case with them, confirmed the findings, and I concur with the proposed plan of care. I was available for consultation throughout the encounter and provided guidance as needed. Date of Consultation November 12, 2024 Assessment & Plan (1) Aortic occlusion: (2) ANA LAURA (obstructive sleep apnea): (3) S/P vascular surgery: (4) Stenosis of right subclavian artery: Plan Addendum 0000: Notified by RN of hypotension, abdominal pain, new bleeding from L groin site. BP 60/40. Neosynephrine restarted. 500cc LR and 1U PRBC ordered. Additional 1U prepared. Patient complaining of new LLQ and groin pain as well as dizziness, nausea, and leg pain. L groin Prevena with new sanguinous OP, and sponge is saturated. No leaking around dressing. BLE pulses dopplered. -1U PRBC now -Trend H/H -Pressor for MAP > 65mmHg -500cc LR now -Pain management as ordered Dr. Dominguez was notified by RN of the above. No further recommendations at this time -Will need to consider CTA to evaluate for intraabdominal or retroperitoneal bleeding if there is not clinical improvement Reason Critically Ill: 1. Aortoiliac occlusive disease s/p bypass 2. Acute blood loss anemia 3. ANA LAURA not on CPAP 4. Hypotension likely 2/2 blood loss 5. Sacral wound 6. Leukocytosis Neuro - [facility] ICU: Negative RASS GOAL 0 Multimodal pain management Neurovascular checks LLE PT/OT as indicated Cardiac - No acute concerns MAP goal > 65mmHg Home antihypertensives to be held while requiring vasoactives, restart tomorrow if able Continue statin. Eliquis per primary Pre-op EKG NSR. NSR on telemetry Respiratory - No acute concerns SpO2 goal > 92% Aspiration precautions HOB 30, IS/Flutter Needs outpatient sleep study GI - Diet: Advancement per primary SUP: Home PPI Bowel regimen: Per primary RENAL/LYTES - Replete electrolytes as indicated Waters, removal per primary Maintain net even to net negative Consider gentle mIVF if not taking PO ENDO - BG 140-180 per SCCM guidelines ISS if needed while inpatient HEME - Repeat H/H in AM Transfuse for HGB 7-8 or active bleeding Follow drain OP ID - Perioperative antibiotics per primary On 10 day course of Doxycycline for buttock wound per PCP Trend WBC, fever curve, culture and treat as indicated Wound consult if inpatient tomorrow, for now Optifoam is in place LINES/TUBES/DRAINS - PIV x2 L radial arterial line (Day #1) Waters (Day #1) DVT PROPHYLAXIS - Eliquis per primary I have personally spent 38 minutes of critical care time in the direct management of this patient. This is a life/limb threatening event. This includes time spent evaluating patient, direct bedside care, chart review, placing orders, interpretation of diagnostic studies, discussion with consultants, patient, and family members, as well as other required patient management activities. This time is exclusive of all separately billable procedures, and teaching time and separate from and in addition to any other critical care service time. Thank you for allowing us to participate in the care of this patient. Please refer to my attending physician's documentation for any further recommendations. History of Present Illness Reason for Consultation: Post-operative medical management Requesting Physician: Angelica Attending Physician: Mati Dominguez MD History of Present Illness Mr. Chano Reese is a pleasant 53YOM vasculopath with a history of obesity, chronic wounds, severe PAD s/p multiple interventions, CVA with residual L-sided weakness, HTN/HLD, NIDDMII (7.1% 2024), ANA LAURA not on CPAP, NAFLD, tobacco use disorder who presented to [facility] for planned L [employer] to L profunda bypass, L Fem-Fem bypass, L Fem-Pop bypass 2/2 aortoiliac occlusive disease with left limb occlusion. EBL 1000cc. No significant perioperative complication. He did develop hypotension which has been controlled with phenylephrine infusion. Of note, patient was found to have > 75% stenosis of R subclavian artery. LUE only for arterial lines and BP measurements. He is admitted to ICU for further management. Patient seen in ICU 107. He is AAOx3. No current complaints. He is resting comfortably in bed. L radial arterial line in place, neosynephrine is off. Saturating well on room air. Non-tachycardic and afebrile. Allergies Allergy/AdvReac Type Severity Reaction Status Date / Time No Known Allergies Allergy Verified 11/12/24 06:53 Home Medications Medication Instructions Recorded Confirmed Type aspirin 81 mg tablet,delayed 81 mg PO QPM 12/26/19 11/12/24 History release pantoprazole 40 mg tablet,delayed 40 mg PO QPM #90 tabs 09/18/22 11/12/24 Rx release albuterol sulfate 90 mcg/actuation 2 puff inhalation Q6H PRN 06/25/23 11/12/24 Rx aerosol inhaler shortness of breath or wheezing #18 grams metformin 500 mg tablet,extended 1,000 mg (2 x 500 mg) PO BID #120 07/07/24 11/12/24 Rx release 24 hr tabs blood-glucose meter (CartCrunchuch #1 ea 07/08/24 11/04/24 Rx Verio Flex Start kit) apixaban 5 mg tablet (Eliquis) 5 mg PO UD 07/15/24 11/12/24 History tiotropium bromide 2.5 2 puff inhalation UD 07/15/24 11/12/24 History mcg/actuation mist for inhalation (Spiriva Respimat) lisinopril 40 mg tablet 40 mg PO QPM #90 tabs 09/04/24 11/12/24 Rx empagliflozin 10 mg tablet See Rx Instructions .Route 10/31/24 11/12/24 Rx (Jardiance) .COMPLEX #90 tabs ergocalciferol (vitamin D2) 1,250 1,250 mcg PO .COMPLEX #8 caps 11/04/24 11/12/24 Rx mcg (50,000 unit) capsule atorvastatin 80 mg tablet (Lipitor) 80 mg PO PM 11/05/24 11/12/24 History doxycycline hyclate 100 mg tablet 100 mg PO BID 10 days #20 tabs 11/06/24 11/12/24 Rx amlodipine 10 mg tablet (Norvasc) 5 mg PO QPM 11/12/24 11/12/24 History Patient History Medical History Carotid artery stenosis "High grade stenosis of right subclavian with 50mmHg difference (2020), no ICA stenosis" per cardio records Family history of reaction to anesthesia Mother- "Took a little longer to wake up" Gastroparesis GERD (gastroesophageal reflux disease) History of stroke (2015) no residual effects per pt Hyperlipidemia Hypertension ANA LAURA (obstructive sleep apnea) no device Pressure sore of right buttock, saw pcp yesterday, started doxy PVD (peripheral vascular disease) - Aortoiliac occlusive disease - s/p bilateral common iliac stents (occluded stents June 2024)- underwent aorto to right iliac and aorto to left [employer] onto the profunda bypass - current occlusion of left limb of aortic graft, left SFA occluded from with recon at the popliteral artery, there is a three vessel runoff per vascular records Type 2 diabetes mellitus Surgical History History of ankle surgery left History of cataract surgery bilat History of esophagogastroduodenoscopy (EGD) History of herniorrhaphy x2 History of laparotomy lysis of adhesions History of tooth extraction Hx of colonoscopy Hx of surgical procedure infrarenal aortic to right iliac bifurcation bypass as well is a left femoral/profunda femoris bypass Hx of vascular surgery bilat stents in legs Family History Father Family history of diabetes mellitus Myocardial infarction Mother Family history of diabetes mellitus Myocardial infarction Brother Myocardial infarction Denies family history of Ovarian cancer Prostate cancer Breast cancer Colorectal cancer Social History Smoking Status: Current every day smoker Tobacco Type: Cigarettes Age Started Using Tobacco: 22; packs per day: 0.5; Cigarettes Per Day: 5 cigs per day > advised npo; Second Hand Exposure: No; Do You Dip or Chew Tobacco: No; Tobacco Cessation Education Requested by Patient: No Hx Alcohol Use: No Hx Substance Use: No Preferred Language: Citizen Of [place] Communication Ability: Effective Visual Impairment: No Limitations Hearing Ability: Normal Shellfish Harvester Required: No Beliefs That Will Affect Care: None marital status: Single Current Living Situation: Family Current Living Situation Comment: brother current occupational status: unemployed Other Information That Helps Us Care for You: No Feels Safe at Home: Yes Safety Concerns: Feels Safe At This Time Childhood Exposure to Second-Hand Smoke: Yes Diet: regular Diet Comment: regular caffeine: Yes (coffee) during the past year weight has: remained stable Dental Care, Regularly: No Physical Activity Frequency: 5-6 Times per Week Seatbelt Use: always Sunscreen Use: No Assistive Devices: Glasses Review of Systems Review of Systems: All systems reviewed & are unremarkable except as noted in Subjective Physical Exam Constitutional: WD/WN, vitals as above Eyes: PERRL, conjunctivae normal, anicteric sclerae ENMT: external ear and nose normal, oropharynx normal Neck: trachea midline, no thyromegaly Respiratory: normal respiratory effort, lungs clear to auscultation Cardiovascular: RRR, no murmur, no edema Gastrointestinal (Abdomen): normal bowel sounds, soft, nontender, no hepatosplenomegaly Musculoskeletal: No cyanosis, LLE weakness which is chronic Skin: normal turgor and + wound Bilateral groin Prevena devices intact with very little bloody output. His distal extremities are warm. Pulses are easily dopplerable bilaterally. Sacral wound 2x1.5cm with surrounding grannulation tissue, scant bloody discharge, no purulence or fluctuance Neurologic: PERRL, EOMI, accommodation nl, no face palsy, no dysarthria Genitourinary: Waters in place draining light yellow urine Results & Data Results & Data Vital Signs (Past 12 Hours) Vital Signs Temp Pulse Pulse Resp BP BP BP 11/12/24 19:12 85 13 11/12/24 19:00 107/67 11/12/24 18:57 91 H 7 L 11/12/24 18:33 96 H 9 L 11/12/24 18:03 91 H 15 11/12/24 18:00 107/68 11/12/24 18:00 36.8 C 11/12/24 17:57 91 H 13 11/12/24 17:00 75 12 123/72 111/52 L 11/12/24 16:50 88 14 124/68 128/54 L 11/12/24 16:45 36.6 C 73 13 135/76 125/57 L 11/12/24 16:40 84 12 119/73 123/51 L 11/12/24 16:35 71 14 135/76 86/40 L 11/12/24 16:25 36.4 C L 75 12 135/68 138/62 11/12/24 16:20 130/70 137/59 L 11/12/24 16:15 37.1 C 89 14 101/66 84/43 L 11/12/24 16:05 93 H 13 108/63 98/53 L 11/12/24 16:02 36.7 C 98 H 15 96/60 L Pulse Ox O2 Del Method O2 Flow Rate 11/12/24 19:12 89 L 11/12/24 19:00 11/12/24 18:57 92 11/12/24 18:33 94 11/12/24 18:03 93 11/12/24 18:00 11/12/24 18:00 11/12/24 17:57 92 11/12/24 17:00 92 Room Air 11/12/24 16:50 100 Room Air 11/12/24 16:45 97 Room Air 11/12/24 16:40 95 Oxymask 2 11/12/24 16:35 99 Oxymask 2 11/12/24 16:25 95 Oxymask 7 11/12/24 16:20 11/12/24 16:15 100 Oxymask 7 11/12/24 16:05 95 Oxymask 15 11/12/24 16:02 96 Oxymask 15 Laboratory Results Reviewed Diagnostic Findings Reviewed Medications Administered See MAR MN[facility] Procedure Codes (Charges) Aterial Pressure Waveform Analysis Arterial Pressure Waveform: 60684 Arterial Pressure Waveform Analysis Coding Level of Care Code 13746 IN/OBS CONSULT LVL 2,35M Diagnoses Aortic occlusion I70.0 ANA LAURA (obstructive sleep apnea) G47.33 S/P vascular surgery Z98.890 Stenosis of right subclavian artery I77.1 CPT Codes Aterial Pressure Waveform Analysis - Arterial Pressure Waveform: 19917 Arterial Pressure Waveform Analysis ([id number]) Time Spent (min) 38
[2024-11-12] MEDS: ERGOCALCIFEROL 1250 MCG (50,000 UNITS) CAP PO SCH (21:46)
[2024-11-12] MEDS: ATORVASTATIN 40 MG TAB PO SCH (21:47)
[2024-11-12] MEDS: ASPIRIN 81 MG ECTAB PO SCH (21:47)
[2024-11-12] MEDS: DOXYCYCLINE HYCLATE 100 MG CAP PO SCH (21:48)
[2024-11-12] MEDS: INSULIN ASPART 100 UNITS/ML VIAL SC SCH (22:00)
[2024-11-12] MEDS: PHENYLEPHRINE/NSS 25 MG/250 ML BAG IV SCH (22:35)
[2024-11-12] MEDS: LACTATED RINGER'S 500 ML IV ONE (22:57)
[2024-11-12 23:23] LABS: Hematocrit (blood only) 32.6 % (42.0-52.0); Hemoglobin 10.5 g/dl (14.0-18.0)
[2024-11-13 00:05] LABS: INR 1.1 (0.9-1.1); Partial Thromboplastin Time 20 Seconds (21-31); Prothrombin Time 11.4 Seconds (9.0-12.0)
[2024-11-13] MEDS ORDERED: STAT IV Infusion **Titration per Protocol STA (01:24)
[2024-11-13 03:28] LABS: Hematocrit (blood only) 32.1 % (42.0-52.0); Hemoglobin 10.8 g/dl (14.0-18.0); Immature Granulocytes # (auto) 0.15 K/uL (0.01-0.20); Immature Granulocytes % (auto) 0.8 %; Mean Corpuscular Hemoglobin 27.3 pg (25.0-34.0); Mean Corpuscular Volume 81.3 fL (80.0-100.0); Platelet Count 188 K/uL (130-400); RDW Standard Deviation 46.8 fL (36.4-46.3); Red Blood Count 3.95 M/uL (4.70-6.10); White Blood Count 18.29 K/ul (4.8-10.8)
[2024-11-13 03:54] LABS: Anion Gap 6.0 (3-11); Blood Urea Nitrogen 11.0 mg/dl (6-23); Calcium 7.6 mg/dl (8.6-10.3); Carbon Dioxide 20.0 mmol/L (21-32); Chloride 105.0 mmol/L (98-107); Creatinine Clr Calc Pharmacy 147.5 ml/min; Glucose 149.0 mg/dl (70-99(Fasting)); Potassium 3.9 mmol/L (3.5-5.1); Sodium 131.0 mmol/L (136-145)
[2024-11-13] MEDS ORDERED: Nursing to Pharmacy Communication SCH ×3 (05:00→05:15)
[2024-11-13] MEDS: LACTATED RINGER'S 500 ML IV ONE (07:37)
[2024-11-13] MEDS ORDERED: SODIUM CHLORIDE 0.9% 100 ML IV PRN (08:11)
--- NOTE | 2024-11-13 10:35 | CT Scan Report ---
CT head/brain wo con CLINICAL HISTORY: r/o cva. TECHNIQUE: Multiple axial CT images of the head were obtained without contrast. A dose lowering tech nique was utilized adhering to the principles of ALARA. CT DOSE: 625.8 mGy.cm COMPARISON: MRI of 03/28/2019 FINDINGS: No intracranial hemorrhage seen. No mass effect, midline shift, or hydrocephalus. There are a few stable small old infarctions at the right cerebral hemisphere and right cerebellar hemisphere. There are mild chronic small vessel ischemic changes. No skull fracture seen. Visualized paranasal s inuses and mastoid air cells are clear. IMPRESSION: No acute findings. ACT 112: Negative or not required by law. The above report was generated using voice recognition software. It may contain grammatical, syntax o r spelling errors. Electronically signed by: Sridhar Michael M.D. 11/13/2024 10:33 AM
--- NOTE | 2024-11-13 10:37 | Critical Care Progress Note ---
<Statement entered by Andrew López MD - 11/13/24 16:20> I, Andrew López MD, supervised and reviewed the physical exam, assessment, plan, and management as documented by the medical office receptionist assistant for this patient encounter. I discussed the case with them, confirmed the findings, and I concur with the proposed plan of care. I was available for consultation throughout the encounter and provided guidance as needed. I separately evaluated the patient for carrillo portions of the history and the exam. I was present during the critical portion of medical decision making, and I discussed the case with the medical office receptionist assistant. I agree with the findings and plan except for any additions/exceptions noted. Total Critical Care Time was: 35 minutes. This is a life/limb threatening event. This includes time spent evaluating patient, direct bedside care, chart review, placing orders, interpretation of diagnostic studies, discussion with consultants, patient, and/or family members regarding treatment decisions, as well as other required patient management activities. This time is exclusive of all separately-billable procedures, and teaching time and separate from and in addition to any other critical care service time. Date of Service November 13, 2024 Assessment & Plan (1) Stenosis of right subclavian artery: (2) Encounter for pre-operative examination: (3) Vitamin D deficiency: (4) Abdominal adhesions: (5) Left inguinal hernia: (6) Aortic occlusion: (7) Elevated red blood cell count: (8) Daytime somnolence: (9) ANA LAURA (obstructive sleep apnea): (10) S/P vascular surgery: (11) Patellofemoral arthritis: (12) Hepatic steatosis: (13) GERD without esophagitis: (14) Gastroparesis: (15) Leukocytosis: (16) PVD (peripheral vascular disease): (17) Stenosis of left iliac artery: (18) Left hand weakness: (19) CVA (cerebral vascular accident): Plan HughChano is a 53 Y O Male with PMH of Aortoiliac disease S/P bilateral common iliac stents, ANA LAURA, GERD without esophagitis, Uncontrolled DM II was found to have occlusion of SFA from with recon at Popliteal artery . He is S/P Bovine patch angioplasty Right Superficial Femoral Artery admitted in the ICU for monitoring post procedure. Neuro - [facility] ICU: Negative RASS GOAL 0 Multimodal pain management Neurovascular checks LLE PT/OT as indicated Cardiac - No acute concerns MAP goal > 65mmHg Home antihypertensives to be held while requiring vasoactives, restart if able Phenylephrine @ 0.3 mcg/kg/min Continue statin. Eliquis per primary Pre-op EKG NSR. NSR on telemetry Respiratory - No acute concerns SpO2 goal > 92% Aspiration precautions HOB 30, IS/Flutter Needs outpatient sleep study GI - Diet: Advancement per primary SUP: Home PPI Bowel regimen: Per primary RENAL/LYTES - Replete electrolytes as indicated Ca this mornin.6 Ionised calcium WNL Waters, removal per primary Maintain net even to net negative Consider gentle mIVF if not taking PO ENDO - BG 140-180 per SCCM guidelines ISS if needed while inpatient HEME - Repeat H/H in AM Transfuse for HGB 7-8 or active bleeding Follow drain OP ID - Perioperative antibiotics per primary On 10 day course of Doxycycline for buttock wound per PCP Trend WBC, fever curve, culture and treat as indicated Wound consult if inpatient tomorrow, for now Optifoam is in place LINES/TUBES/DRAINS - PIV x2 L radial arterial line (Day #1) Waters (Day #1) Admission and Anticipated Discharge Date Admission Date: November 12, 2024 Subjective Patient reports he is feeling better overall. Left groin and leg pain is improved compared to midnight. Denied nausea/Dizziness. He denied any new concerns. Review of Systems Review of Systems: All systems reviewed & are unremarkable except as noted in Subjective Physical Exam Constitutional: WD/WN, vitals as above Eyes: PERRL, conjunctivae normal, anicteric sclerae ENMT: external ear and nose normal, oropharynx normal Neck: trachea midline, no thyromegaly Respiratory: normal respiratory effort, lungs clear to auscultation Cardiovascular: RRR, no murmur, no edema Gastrointestinal (Abdomen): normal bowel sounds, soft, nontender, no hepatosplenomegaly Musculoskeletal: No cyanosis, LLE weakness which is chronic Skin: normal turgor and + wound Bilateral groin Prevena devices intact with very little bloody output. His distal extremities are warm. Pulses are easily dopplerable bilaterally. Sacral wound 2x1.5cm with surrounding grannulation tissue, scant bloody discharge, no purulence or fluctuance Neurologic: PERRL, EOMI, accommodation nl, no face palsy, no dysarthria Results & Data Results & Data Vital Signs (Past 12 Hours) Vital Signs Temp Pulse Resp BP Pulse Ox O2 Del Method O2 Flow Rate 11/13/24 09:45 36.9 C 64 17 115/42 L 92 2 11/13/24 09:30 36.9 C 65 17 126/45 L 94 2 11/13/24 09:15 37.3 C 64 15 127/46 L 93 2 11/13/24 09:00 37.1 C 62 14 115/43 L 91 2 11/13/24 08:34 37.1 C 69 20 126/45 L 92 2 11/13/24 08:00 Nasal Cannula 2 11/13/24 07:50 120/43 L 11/13/24 07:31 89/46 L 11/13/24 07:31 89/46 L 11/13/24 07:27 74 18 94 11/13/24 07:24 74 16 94 11/13/24 07:20 94/67 L 11/13/24 07:20 94/67 L 11/13/24 07:20 94/67 L 11/13/24 07:12 69 12 91 11/13/24 07:00 86/48 L 11/13/24 07:00 86/48 L 11/13/24 06:57 69 13 91 11/13/24 06:51 88/51 L 11/13/24 06:51 88/51 L 11/13/24 06:51 88/51 L 11/13/24 06:51 88/51 L 11/13/24 06:48 66 14 92 11/13/24 06:42 65 15 90 11/13/24 06:36 65 17 90 11/13/24 06:24 69 20 93 11/13/24 06:12 68 13 91 11/13/24 06:03 71 13 93 11/13/24 06:00 98/58 L 11/13/24 05:54 73 13 93 11/13/24 05:51 71 12 93 11/13/24 05:42 69 13 93 11/13/24 05:39 69 14 91 11/13/24 05:24 71 14 93 11/13/24 05:18 73 13 91 11/13/24 05:06 73 13 91 11/13/24 05:00 36.7 C 11/13/24 05:00 106/62 11/13/24 04:03 68 16 91 11/13/24 04:00 36.6 C 11/13/24 04:00 106/58 L 11/13/24 03:45 70 12 92 11/13/24 03:03 72 13 92 11/13/24 03:00 36.7 C 11/13/24 03:00 104/59 L 11/13/24 02:39 70 13 93 11/13/24 02:15 71 13 92 11/13/24 02:00 36.9 C 11/13/24 01:53 36.9 C 72 14 119/51 L 92 3 11/13/24 01:36 36.9 C 74 16 127/53 L 91 3 11/13/24 01:00 36.8 C 11/13/24 01:00 104/57 L 11/13/24 01:00 73 13 90 11/13/24 00:36 36.9 C 67 14 108/49 L 90 2 11/13/24 00:09 73 16 94 11/13/24 00:06 37 C 74 16 126/54 L 91 11/13/24 00:00 36.7 C 11/13/24 00:00 76 11/12/24 23:51 36.7 C 73 20 99/47 L 91 11/12/24 23:31 36.7 C 90 22 100/49 L 95 11/12/24 23:00 36.8 C 11/12/24 23:00 112/59 L 11/12/24 23:00 64 15 96 11/12/24 22:46 119/58 L 11/12/24 22:45 64 19 99 11/12/24 22:39 69 18 94 Coding Level of Care Code 08919 CRITICAL CARE 1ST 30-74M Diagnoses Stenosis of right subclavian artery I77.1 Encounter for pre-operative examination Z01.818 Vitamin D deficiency E55.9 Abdominal adhesions K66.0 Left inguinal hernia K40.90 Aortic occlusion I70.0 Elevated red blood cell count R71.8 Daytime somnolence R40.0 ANA LAURA (obstructive sleep apnea) G47.33 S/P vascular surgery Z98.890 Patellofemoral arthritis M17.10 Hepatic steatosis K76.0 GERD without esophagitis K21.9 Gastroparesis K31.84 Leukocytosis D72.829 PVD (peripheral vascular disease) I73.9 Stenosis of left iliac artery I77.1 Left hand weakness R29.898 CVA (cerebral vascular accident) I63.9 Resident Activity Tracking Resident Involvement: Resident Care Provided Care Provided: Adult Hospital Medicine
--- NOTE | 2024-11-13 10:58 | Pharmacy Report ---
Pharmacy Glycemic Short Note 2 - Date of Service November 13, 2024 - Glycemic Short BSG Results (Last 24 hours): 11/12/24 11/12/24 11/12/24 12:30 14:05 16:15 Glucose POC Glucose 177 H POC Glucose (other) 161 H 176 H 11/12/24 11/12/24 11/13/24 17:51 21:51 03:14 Glucose 149 H POC Glucose 163 H 125 H POC Glucose (other) 11/13/24 07:32 Glucose POC Glucose 128 H POC Glucose (other) OUTPATIENT ANTIDIABETIC REGIMEN: * Jardiance 10 mg PO daily * Metformin XR 1000 mg PO BID HbA1c: * 6.9% (11/04/24) ASSESSMENT: * 53 yo M admitted on 11/12/24 postoperatively following lower extremity bypass surgery with Dr. Dominguez. Pharmacy has been consulted to assist with inpatient glycemic management. Patient is a Type 2 diabetic as an outpatient. Please refer to outpatient regimen and most recent HbA1c above. * BSGs yesterday were: 154-062-200-177-163-125 mg/dL. Patient did receive 8 mg of IV dexamethasone perioperatively. T2DM diet is ordered. No insulin required yesterday. * Fasting BSG this morning was 128 mg/dL. POD #1. Remains on phenylephrine as well as PO doxycycline from home for infection. Not eating at this time and actually going for head CT to evaluate for possible stroke. * Continue to hold basal. Novolog will continue ACHS based on weight/stress of 2 for now. Will tighten BSG goal range to 110-140 mg/dL. Continue to follow PO intake. PLAN FOR INPATIENT GLYCEMIC CONTROL: * Hold outpatient oral diabetes medications * Basal insulin * None * Bolus insulin * NovoLog per scale ACHS or Q6hrs while NPO * Goal Range: Low 110 mg/dL - High 140 mg/dL * Correction Factor: 25 mg/dL/unit * Nutritional / Prandial insulin per carb ratio of 1 unit per 8 grams CHO co nsumed
[2024-11-13] MEDS: INSULIN ASPART PER UNIT CHARGE SC STA (12:03)
--- NOTE | 2024-11-13 13:40 | Surgery Progress Note ---
Date of Service November 13, 2024 Assessment & Plan (1) S/P vascular surgery: Plan: Patient doing well. He is requiring siddhartha at this time to maintain systolic above 100. (2) Acute blood loss as cause of postoperative anemia: Plan: Patient had significant blood loss during surgery. Responding well to transfusions other than still remaining hypotensive. Admission and Anticipated Discharge Date Admission Date: November 12, 2024 Subjective Patient complaining of left groin discomfort. Denies foot numbness or pain. Claims his feet feel warm Physical Exam Constitutional: WD/WN, vitals as above Respiratory: normal respiratory effort and + respiratory distress Cardiovascular: Rate/Rhythm: regular rate and regular rhythm Vessels: posterior tibial pulses present and dorsalis pedis pulses present Extremities: normal capillary refill Skin: + incision (prevena in place) Neurologic: CN's II-XI intact bilaterally and moves all extremities Results & Data Vital Signs (Past 12 Hours) Vital Signs Temp Pulse Resp BP Pulse Ox O2 Del Method O2 Flow Rate 11/13/24 12:31 86/46 L 11/13/24 12:27 71 14 89 L 11/13/24 12:03 81 20 91 11/13/24 12:00 92/51 L 11/13/24 12:00 92/51 L 11/13/24 12:00 92/51 L 11/13/24 12:00 92/51 L 11/13/24 11:55 36.5 C 76 16 107/45 L 91 2 11/13/24 11:51 78 12 90 11/13/24 11:45 114 H 16 82 L 11/13/24 11:21 70 13 95 11/13/24 11:09 79 12 92 11/13/24 10:45 68 17 93 11/13/24 10:45 37.2 C 84 20 122/47 L 94 2 11/13/24 10:35 108/69 11/13/24 10:33 67 19 92 11/13/24 10:00 71 17 90 11/13/24 09:45 36.9 C 64 17 115/42 L 92 2 11/13/24 09:30 36.9 C 65 17 126/45 L 94 2 11/13/24 09:15 37.3 C 64 15 127/46 L 93 2 11/13/24 09:06 78 19 90 11/13/24 09:00 37.1 C 62 14 115/43 L 91 2 11/13/24 08:34 37.1 C 69 20 126/45 L 92 2 11/13/24 08:00 67 11/13/24 08:00 67 12 91 11/13/24 08:00 93/49 L 11/13/24 08:00 93/49 L 11/13/24 08:00 Nasal Cannula 2 11/13/24 07:50 120/43 L 11/13/24 07:39 57 L 15 92 11/13/24 07:31 89/46 L 11/13/24 07:31 89/46 L 11/13/24 07:27 74 18 94 11/13/24 07:24 74 16 94 11/13/24 07:20 94/67 L 11/13/24 07:20 94/67 L 11/13/24 07:20 94/67 L 11/13/24 07:12 69 12 91 11/13/24 07:00 86/48 L 11/13/24 07:00 86/48 L 11/13/24 06:57 69 13 91 11/13/24 06:51 88/51 L 11/13/24 06:51 88/51 L 11/13/24 06:51 88/51 L 11/13/24 06:51 88/51 L 11/13/24 06:48 66 14 92 11/13/24 06:42 65 15 90 11/13/24 06:36 65 17 90 11/13/24 06:24 69 20 93 11/13/24 06:12 68 13 91 11/13/24 06:03 71 13 93 11/13/24 06:00 98/58 L 11/13/24 05:54 73 13 93 11/13/24 05:51 71 12 93 11/13/24 05:42 69 13 93 11/13/24 05:39 69 14 91 11/13/24 05:24 71 14 93 11/13/24 05:18 73 13 91 11/13/24 05:06 73 13 91 11/13/24 05:00 36.7 C 11/13/24 05:00 106/62 11/13/24 04:03 68 16 91 11/13/24 04:00 36.6 C 11/13/24 04:00 106/58 L 11/13/24 03:45 70 12 92 11/13/24 03:03 72 13 92 11/13/24 03:00 36.7 C 11/13/24 03:00 104/59 L 11/13/24 02:39 70 13 93 11/13/24 02:15 71 13 92 11/13/24 02:00 36.9 C 11/13/24 01:53 36.9 C 72 14 119/51 L 92 3 11/13/24 01:36 36.9 C 74 16 127/53 L 91 3
[2024-11-13] MEDS: CLOPIDOGREL BISULFATE 300 MG TAB PO STA (14:05)
[2024-11-13] MEDS: INSULIN ASPART PER UNIT CHARGE SC SCH (17:36)
[2024-11-13] MEDS: APIXABAN 5 MG TABLET PO SCH (20:40)
[2024-11-14 05:38] LABS: Hematocrit (blood only) 30.6 % (42.0-52.0); Hemoglobin 10.5 g/dl (14.0-18.0); Immature Granulocytes # (auto) 0.12 K/uL (0.01-0.20); Immature Granulocytes % (auto) 0.8 %; Mean Corpuscular Hemoglobin 27.8 pg (25.0-34.0); Mean Corpuscular Volume 81.0 fL (80.0-100.0); Platelet Count 186 K/uL (130-400); RDW Standard Deviation 47.4 fL (36.4-46.3); Red Blood Count 3.78 M/uL (4.70-6.10); White Blood Count 15.20 K/ul (4.8-10.8)
[2024-11-14 05:52] LABS: Anion Gap 5.0 (3-11); Blood Urea Nitrogen 10.0 mg/dl (6-23); Calcium 8.0 mg/dl (8.6-10.3); Carbon Dioxide 22.0 mmol/L (21-32); Chloride 107.0 mmol/L (98-107); Creatinine Clr Calc Pharmacy 150.2 ml/min; Glucose 122.0 mg/dl (70-99(Fasting)); Potassium 3.4 mmol/L (3.5-5.1); Sodium 134.0 mmol/L (136-145)
[2024-11-14] MEDS: CLOPIDOGREL BISULFATE 75 MG TAB PO SCH (08:00)
[2024-11-14] MEDS: MIDODRINE HCL 10 MG TAB PO STA (08:39)
--- NOTE | 2024-11-14 11:13 | Surgery Progress Note ---
Date of Service November 14, 2024 Assessment & Plan (1) S/P vascular surgery: Plan: Patient doing well post op. Hgb stable, vss stable currently. Possible d/c home vs downgrade later today, pending therapy and BP remaining stable. (2) Acute blood loss as cause of postoperative anemia: Plan: Patient had significant blood loss during surgery. Transfused 4 U PRBC, BP stabilizing on midodrine. Admission and Anticipated Discharge Date Admission Date: November 12, 2024 Subjective 53 yo m POD #2 after R to L fem fem bypass, interposition graft L [employer] with jump graft to profunda, bovine patch angioplasty L SFA, L SFA to BK pop stented GSV bypass, seen in f/u today. Pt states feeling tired and having some lowback pain which is chronic and positional. Admits BL groin pain, relieved with medications. Denies any new complaints or concerns related to BLE. Taking PO well, no N/V. OOB to chair and about to have therapy and ambulate with a walker. SBP low 100's on midodrine. phenylephrine d/c. Review of Systems Review of Systems: All systems reviewed & are unremarkable except as noted in HPI & below Physical Exam Constitutional: WD/WN, vitals as above Respiratory: normal respiratory effort and + respiratory distress Cardiovascular: Rate/Rhythm: regular rate and regular rhythm Vessels: posterior tibial pulses present and dorsalis pedis pulses present Extremities: normal capillary refill Skin: + incision (prevena in place) Neurologic: CN's II-XI intact bilaterally and moves all extremities Results & Data Vital Signs (Past 12 Hours) Vital Signs Temp Pulse Resp BP BP Pulse Ox O2 Del Method 11/14/24 08:22 36.9 C 11/14/24 08:14 118/50 L 11/14/24 08:03 79 25 H 94 11/14/24 07:45 83 18 93 11/14/24 07:40 68 11/14/24 07:30 17 92 11/14/24 07:15 79 14 92 11/14/24 07:00 82 17 91 11/14/24 06:48 71 14 92 11/14/24 06:39 77 16 91 Room Air 11/14/24 06:06 68 13 93 Room Air 11/14/24 05:33 76 23 93 Room Air 11/14/24 05:09 78 15 91 Room Air 11/14/24 04:39 68 16 94 Room Air 11/14/24 04:24 80 22 91 Room Air 11/14/24 04:00 78 99/41 L 11/14/24 03:39 76 16 91 Room Air 11/14/24 03:03 77 16 91 Room Air 11/14/24 02:36 76 16 91 Room Air 11/14/24 02:03 82 19 92 Room Air 11/14/24 01:39 90 15 90 Room Air 11/14/24 01:00 78 17 91 Room Air 11/14/24 00:30 76 14 93 Room Air 11/14/24 00:00 86 21 93 Room Air 11/14/24 00:00 81 119/48 L 11/14/24 00:00 78 11/13/24 23:45 86 16 90 Room Air
[2024-11-14] MEDS: MIDODRINE HCL 10 MG TAB PO SCH (11:22)
--- NOTE | 2024-11-14 12:00 | Critical Care Progress Note ---
<Statement entered by Andrew López MD - 11/14/24 14:11> I, Andrew López MD, supervised and reviewed the physical exam, assessment, plan, and management as documented by the medical doctor for this patient encounter. I discussed the case with them, confirmed the findings, and I concur with the proposed plan of care. I was available for consultation throughout the encounter and provided guidance as needed. I separately evaluated the patient for carrillo portions of the history and the exam. I was present during the critical portion of medical decision making, and I d iscussed the case with the medical doctor . I agree with the findings and plan except for any additions/exceptions noted. Total time spent is greater than 50% in coordination of care (as documented) at patient's floor/unit and/or counseling patient, independent of time spent on separately-billable procedures: 55 minutes Date of Service November 14, 2024 Assessment & Plan (1) Acute blood loss as cause of postoperative anemia: (2) S/P vascular surgery: (3) Stenosis of right subclavian artery: (4) Encounter for pre-operative examination: (5) Vitamin D deficiency: (6) Abdominal adhesions: (7) Left inguinal hernia: (8) Aortic occlusion: (9) Elevated red blood cell count: (10) Daytime somnolence: (11) ANA LAURA (obstructive sleep apnea): (12) S/P vascular surgery: (13) Patellofemoral arthritis: (14) Hepatic steatosis: (15) GERD without esophagitis: (16) Gastroparesis: (17) Leukocytosis: (18) PVD (peripheral vascular disease): (19) Stenosis of left iliac artery: (20) Left hand weakness: (21) CVA (cerebral vascular accident): Plan MikeymanuelitoChano brooks is a 53 Y O Male with PMH of Aortoiliac disease S/P bilateral common iliac stents, ANA LAURA, GERD without esophagitis, Uncontrolled DM II was found to have occlusion of SFA from with recon at Popliteal artery . He is S/P Bovine patch angioplasty Right Superficial Femoral Artery admitted in the ICU for monitoring post procedure. Neuro - [facility] ICU: Negative RASS GOAL 0 Multimodal pain management Neurovascular checks LLE PT/OT as indicated Cardiac - No acute concerns MAP goal > 65mmHg Home antihypertensives to be held while requiring vasoactives, restart if able Phenylephrine @ 0.1 mcg/kg/min. Has been started on Midodrine 10mg TID. Hopefully can get off the Phenylephrine Continue statin. Eliquis per primary Pre-op EKG NSR. NSR on telemetry Respiratory - No acute concerns SpO2 goal > 92% Aspiration precautions HOB 30, IS/Flutter Needs outpatient sleep study GI - Diet: Advancement per primary SUP: Home PPI Bowel regimen: Per primary RENAL/LYTES - Replete electrolytes as indicated Ca this mornin.6 Ionised calcium WNL Waters, removal per primary Maintain net even to net negative Consider gentle mIVF if not taking PO ENDO - BG 140-180 per [facility] guidelines ISS if needed while inpatient HEME - Repeat H/H in AM Transfuse for HGB 7-8 or active bleeding Follow drain OP ID - Perioperative antibiotics per primary On 10 day course of Doxycycline for buttock wound per PCP Trend WBC, fever curve, culture and treat as indicated Wound consult if inpatient tomorrow, for now Optifoam is in place LINES/TUBES/DRAINS - PIV x2 L radial arterial line (Day #1) Waters (Day #1) Admission and Anticipated Discharge Date Admission Date: November 12, 2024 Subjective Patient reports he is feeling better overall. Left groin and leg pain is improved compared to midnight. Denied nausea/Dizziness. He denied any new concerns. Physical Exam Constitutional: WD/WN, vitals as above Respiratory: normal respiratory effort and + respiratory distress Cardiovascular: Rate/Rhythm: regular rate and regular rhythm Vessels: posterior tibial pulses present and dorsalis pedis pulses present Extremities: normal capillary refill Skin: + incision (prevena in place) Neurologic: CN's II-XI intact bilaterally and moves all extremities Results & Data Results & Data Vital Signs (Past 12 Hours) Vital Signs Temp Pulse Resp BP BP Pulse Ox O2 Del Method 11/14/24 08:22 36.9 C 11/14/24 08:14 118/50 L 11/14/24 08:03 79 25 H 94 11/14/24 07:45 83 18 93 11/14/24 07:40 68 11/14/24 07:30 17 92 11/14/24 07:15 79 14 92 11/14/24 07:00 82 17 91 11/14/24 06:48 71 14 92 11/14/24 06:39 77 16 91 Room Air 11/14/24 06:06 68 13 93 Room Air 11/14/24 05:33 76 23 93 Room Air 11/14/24 05:09 78 15 91 Room Air 11/14/24 04:39 68 16 94 Room Air 11/14/24 04:24 80 22 91 Room Air 11/14/24 04:00 78 99/41 L 11/14/24 03:39 76 16 91 Room Air 11/14/24 03:03 77 16 91 Room Air 11/14/24 02:36 76 16 91 Room Air 11/14/24 02:03 82 19 92 Room Air 11/14/24 01:39 90 15 90 Room Air 11/14/24 01:00 78 17 91 Room Air 11/14/24 00:30 76 14 93 Room Air 11/14/24 00:00 86 21 93 Room Air 11/14/24 00:00 81 119/48 L 11/14/24 00:00 78 Coding Level of Care Code 13701 SUB INP/OBS CARE 3/50MIN Diagnoses Acute blood loss as cause of postoperative anemia D62 S/P vascular surgery Z98.890 Stenosis of right subclavian artery I77.1 Encounter for pre-operative examination Z01.818 Vitamin D deficiency E55.9 Abdominal adhesions K66.0 Left inguinal hernia K40.90 Aortic occlusion I70.0 Elevated red blood cell count R71.8 Daytime somnolence R40.0 ANA LAURA (obstructive sleep apnea) G47.33 Patellofemoral arthritis M17.10 Hepatic steatosis K76.0 GERD without esophagitis K21.9 Gastroparesis K31.84 Leukocytosis D72.829 PVD (peripheral vascular disease) I73.9 Stenosis of left iliac artery I77.1 Left hand weakness R29.898 CVA (cerebral vascular accident) I63.9 Resident Activity Tracking Resident Involvement: Resident Care Provided Care Provided: Adult Hospital Medicine
--- NOTE | 2024-11-14 14:27 | Pharmacy Report ---
Pharmacy Glycemic Sign Off Nt - Date of Service November 14, 2024 - Assessment & Plan ASSESSMENT: * Pharmacy was consulted by Dr Dominguez on 11/13 for glycemic control and to write orders per [facility] inpatient glycemic control protocol. * Major changes made by pharmacy to antidiabetic regimen include: * Initiation of bolus insulin, moderate stress scale * Patient has been receiving/requiring ~5 units of insulin per day for adequate glycemic control * BSGs largely within goal range * Do not anticipate further changes in patient status that would quickly deteriorate glycemic control (i.e. patient to be NPO for upcoming procedure, steroids tapering, starting tube feedings, etc). PLAN FOR INPATIENT GLYCEMIC CONTROL: No changes needed to current regimen. * Continue NovoLog per scale ACHS/Q6hrs while NPO * Goal range = 110-140 mg/dl * CF = 25 mg/dl/unit * CR = 1 unit for ever 8 g CHO consumed * Pharmacy is signing off of glycemic consult and will no longer be making adjustments to inpatient regimen. Please feel free to re-consult if needed. Thank you.
[2024-11-14 19:48] VITALS: BP 125/56; PULSE 83; RESP 16; TEMP 98.2; O2SAT 94
--- NOTE | 2024-11-18 14:28 | Discharge Summary ---
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 Suarez. He has subsequently thrombosed the left limb of his aortic graft. He presents to the [place] [facility] for further evaluation and management. Today he reports that he is experiencing short distance claudication and pain at rest in his left leg when he is not dangling his leg. There are no wounds. On review of his non-invasive imaging he does appear to have occlusion of the left limb of his aortic graft. His left SFA is occluded from with recon at the popliteal artery, there is three vessel runoff. ON review of his vitals his tachycardic, SBP 98, sitting comfortably on room air. Current Home Meds: (Last Updated 10/29 10:11) albuterol (albuterol CFC free 90 mcg/inh MDI) 1 puff inhaled qid PRN: as needed for wheezing amLODIPine (amLODIPine 10 mg oral tablet) TAKE 1 TABLET BY MOUTH EVERY DAY apixaban (apixaban 5 mg oral tablet) 5 mg PO bid aspirin (aspirin 81 mg oral delayed release tablet) 81 mg PO Daily atorvastatin (atorvastatin 80 mg oral tablet) TAKE 1 TABLET BY MOUTH EVERYDAY AT BEDTIME empagliflozin (Jardiance) 10 mg PO qAM lisinopril (lisinopril 40 mg oral tablet) TAKE 1 TABLET BY MOUTH EVERY DAY metFORMIN (metFORMIN extended release) 500 mg PO bid with meals oxyCODONE (oxyCODONE 5 mg oral tablet) 5 mg PO q4h PRN: pain - moderate (4-6) oxyCODONE (oxyCODONE 5 mg oral tablet) 5 mg PO q6h PRN: as needed for pain pantoprazole (pantoprazole 40 mg oral delayed release tablet) 1 tab PO Daily Allergies and Sensitivities: NKA Past Medical History: Problems: S/P aorto-bifemoral bypass surgery Aortoiliac occlusive disease Peripheral arterial disease Chest pain Bilateral leg and foot pain Rib pain on left side Night sweats Tobacco user Carotidynia Tobacco use Bronchospasm Cough Leukocytosis Stenosis of iliac artery S/P orthopedic surgery, follow-up exam Left hand paresthesia Type 2 diabetes, HbA1c goal < 7% Left ankle pain Plantar fasciitis, bilateral Chronic headache Memory loss Atypical pigmented skin lesion Left tibialis posterior tendinitis Anterior leg pain (atherosclerosis) Superior mesenteric artery stenosis Retained food in stomach Nodule of esophagus Nicotine dependence Left-sided weakness Left foot pain Left eye symptoms IgA deficiency, selective Gastropathy Hiatal hernia GERD without esophagitis Abdominal pain, epigastric Dyslipidemia Carotid thromboses, right Postprandial vomiting History of stroke Numbness and tingling Weakness Weight disorder OBJECTIVE Vitals: Last Updated 10/29/24 10:13 Date Temp BP Location Pulse RR SpO2 Pain 10/29/24 98/66 Left Arm 110 95 0 09/22/24 100/62 Left Arm 126 97 07/30/24 118/70 Left Arm 94 Vital Signs are the last 3 documented. No Orthostatic Data Available Height and Weight: Last Updated 09/22/24 13:24 Date BMI Wt(kg) Wt(lb) Method Ht(cm) (ft-in) Method 09/22/24 98 216 Standing Scale 07/30/24 100.1 220 Standing Scale 07/22/24 101.7 224 Standing Scale Heights and Weights are the last 3 documented. Physical Exam General: no apparent distress HEENT: normocephalic, atraumatic Heart: regular rate and rhythm Chest: nonlabored breathing on room air Abdomen: soft, nontender, nondistended Extremity: Left lower extremity with monophasic DP Doppler signal, foot with dependent rubor, no wounds, motor intact, intermittent numbness to L great toe. Neuro: alert and oriented Skin: no rashes or lesions 30 Day Labs: No 30 Day Lab Data. ASSESSMENT: _ 53 yom with history of aortoiliac occlusive disease s/p open aortic bifurcated graft complicated by left limb occlusion. He presents today with LLE rest pain. We did discuss right to left femoral to profunda bypass and detour bypass to the below knee popliteal artery. PLAN: _ Aortoiliac occlusive disease Pt is s/p open bifurcated graft reconstruction with occlusion of his left limb. He presents today with rest pain in his left lower extremity. We did discuss right to left femoral to profunda bypass and detour bypass to the below knee popliteal artery. Prior to this we will obtain venous duplex ultrasound to deter mine suitability for the detour procedure. We will also have him seen by our cardiology colleagues for pre-op risk stratification. He is in agreement with this plan. I saw and evaluated the patient. Discussed with the resident and agree with the resident's findings and plan as documented in the resident's note. I have personally spent__35___ minutes performing [id number] and [id number] activities on this date of service. Activities Include: _x_ review of the medical record _x_ obtaining a history _x_ physical exam/evaluation __ review labs _x_ review radiology reports x__ counseling/educating patient/family/caregiver __ discussion/referral to other healthcare professional _x_ documenting care in the medical record x__ independent interpretation of results cta at [facility] __ communication of results to patient/family/caregiver __ coordination of care Signature Line Electronic Signature on File Electronically Reviewed/Signed by: Lencho Slaughter DO Author Signature Dt/Tm:10/29/2024 11:12 AM Resident Division of General Surgery Electronically Reviewed/Signed by: Mati Dominguez MD Cosigner Signature Dt/Tm: 10/29/2024 11:34 AM Sales Strategy Manager Jared Tillman [facility] [place], [address] [place] [address] Result Type: Vascular Surgery Outpt Note Date of Service: October 29, 2024 10:54 EDT Authorization Status: Final Author or Import Date: DO Slaughter Andrew on October 29, 2024 11:12 EDT Verified By: MD Angelica, Mati Tesfaye on October 29, 2024 11:34 EDT Encounter info: [id number], [place] [address], Clinic, 10/29/2024 - 10/29/2024 Admission Exam Per Admitting Provider General: no apparent distress HEENT: normocephalic, atraumatic Heart: regular rate and rhythm Chest: nonlabored breathing on room air Abdomen: soft, nontender, nondistended Extremity: Left lower extremity with monophasic DP Doppler signal, foot with dependent rubor, no wounds, motor intact, intermittent numbness to L great toe. Neuro: alert and oriented Skin: no rashes or lesions Principal Diagnosis 1. s/p vascular surgery 2. AIOD 3. PAD Discharge Exam Constitutional WD/WN, vitals as above Respiratory normal respiratory effort and + respiratory distress Cardiovascular Rate/Rhythm: regular rate and regular rhythm Vessels: posterior tibial pulses present and dorsalis pedis pulses present Extremities: normal capillary refill Skin + incision (prevena in place) Neurologic CN's II-XI intact bilaterally and moves all extremities Discharge Data Allergies Allergy/AdvReac Type Severity Reaction Status Date / Time No Known Allergies Allergy Verified 11/17/24 15:29 Consultations 11/12/24 17:45 Consult Wood Finisher Routine Procedures Performed Operation Date: 11/12/24 08:00 Actual Procedures p Bovine Patch Angioplasty Right Superficial Femoral Artery. Interposition Graft Left Common Femoral Artery, Left Common Femoral Artery to Left Profunda Artery Bypass, Femoral to Femoral Bypass Right to Left, Left Lower Extremity Endovascular Femoral Popliteal Bypass(Left) - Mati Dominguez MD Ordered Studies 11/12/24 06:56 EV angio LE LT Routine US EV guide vascular access Routine 11/13/24 09:48 CT head/brain wo con Urgent Hospital Course (1) S/P vascular surgery: Patient doing well post op. Hgb stable, vss stable currently. Possible d/c home vs downgrade later today, pending therapy and BP remaining stable. (2) Acute blood loss as cause of postoperative anemia: Patient had significant blood loss during surgery. Transfused 4 U PRBC, BP stabilizing on midodrine. Total Time Total Time Spent Total Time Spent (In Minutes): 0 Discharge Plan Discharge Items Patient Disposition: Home - Home Health Services Reason For Visit: Left Iliac and Superficial Femoral Artery Occlusio Discharge Diagnosis: 1. s/p R to L fem fem bpg, interposition graft L SIGNAL AND COMMUNICATIONS MAINTAINER with jump graft to profunda, bovine patch angioplasty L SFA, SFA to BK pop endovascular bypass 2. AIOD 3. PAD Activity: Per Instructions section Non-emergency contact: Primary Care Provider and Surgeon Call non-emergency contact if: you have any medication questions, your symptoms worsen, your pain is not controlled, your pain is concerning for you, you have a fever, your wound has increased redness and your wound has increased drainage Follow-up/Referrals: Carter Jarvis CRNP [Primary Care Provider] - (Follow up with your PCP within 2 weeks) Mati Dominguez MD [Physician] - (Follow up with Dr Dominguez or Dominique Crane PA-C, in 2 weeks for staple removal) Diet: Carb Consistent or DM2 and Heart Healthy Addtl Attending Provider Instructions: ACTIVITY RECOMMENDATIONS: 1. NO lifting more than 10 lbs x 6 weeks 2. DO NOT get the incisional vac dressings wet until the batteries . 3. You have prevena incisional vac dressings on your groins. These will remain in place until the batteries , usually about 10 days. When the batteries , the entire unit can be removed and disposed of in garbage. If you are confused regarding these dressings, call Dr Dominguez's office to speak to the nurse. 4. You may shower after the dressings come off, but no soaking tub baths. Cleanse the incisions gently and dry completely after showering. 5. Take your blood pressure every morning. If your systolic blood pressure is over 140, stop taking the midodrine and restart your amlodipine and lisinopril. Call Dr Dominguez's office if you are confused. SPECIAL CARE INSTRUCTIONS: Call your doctor if: * Temperature above 101 degrees * Pain not relieved by pain medicine ordered * There is increased drainage or redness from any incision * You have any unanswered questions or concerns. Pending Studies at Discharge: No Stand-Alone Forms: My [facility] [employer], Smoking Cessation Medications and DC Order Prescriptions: New clopidogrel 75 mg Tablet 75 mg PO QAM Qty: 90 3RF oxycodone-acetaminophen [Percocet] 5-325 mg Tablet 1 - 2 tab PO Q6H PRN (Reason: pain) Qty: 30 0RF midodrine 10 mg Tablet 10 mg PO TID@0800,1200,1700 Qty: 21 0RF Continued pantoprazole 40 mg tablet,delayed release (DR/EC) 40 mg PO QPM Qty: 90 1RF metformin 500 mg tablet extended release 24 hr 1,000 mg PO BID Qty: 120 2RF Jardiance 10 mg tablet See Rx Instructions .ROUTE .COMPLEX Qty: 90 1RF Dose Instruction: TAKE 1 TABLET BY MOUTH EVERY DAY Rx Instructions: TAKE 1 TABLET BY MOUTH EVERY DAY ergocalciferol (vitamin D2) 1,250 mcg (50,000 unit) capsule 1,250 mcg PO .COMPLEX Qty: 8 0RF Rx Instructions: 1,250 mcg orally WEEKLY FOR 8 WEEKS; per pt - just picked up , has not started carlos albuterol sulfate 90 mcg/actuation HFA aerosol inhaler 2 puff inhalation Q6H PRN (Reason: shortness of breath or wheezing) Qty: 18 3RF Rx Instructions: 07/15-no fill history unable to verify (DME) blood-glucose meter [Lawn Love Verio Flex Start] Kit See Rx Instructions .Route Qty: 1 0RF Rx Instructions: Check glucose once daily Spiriva Respimat 2.5 mcg/actuation mist 2 puff inhalation UD Rx Instructions: original: 2 puff inhalation daily. 07/15-last filled 04/08 30 day supply Eliquis 5 mg tablet 5 mg PO UD Rx Instructions: 5mg po bid. last filled 06/07 30 day supply atorvastatin [Lipitor] 80 mg tablet 80 mg PO PM Held lisinopril 40 mg tablet 40 mg PO QPM Qty: 90 3RF Hold Instructions: Hold until blood pressure over 140mmHg. amlodipine [Norvasc] 10 mg tablet 5 mg PO QPM Hold Instructions: Hold until blood pressure over 140mmHg Discontinued aspirin 81 mg Tablet,Delayed Release (Dr/Ec) 81 mg PO QPM Rx Instructions: 07/15- OTC unable to verify No Action doxycycline hyclate 100 mg capsule 100 mg PO BID Patient Comments: 11/17/2024 - Pt states he is still taking Discharge Orders: Discharge Order (Routine); Ordered 11/14/24 Ordered By: Dominique Crane Admission Data Admit Date/Time: 11/12/24 07:36 Attending Provider: Mati Dominguez Admit Provider: Mati Dominguez Primary Care Provider: Carter Jarvis Other Providers: Polina Chavez Other Interventions: Discharge Summary Assessment (RN) Last Done: 11/14/24 15:54
--- NOTE | 2024-12-01 09:53 | Operative Report ---
Post Operative Report Pre & Post Diagnosis Operation Date: 11/12/24 08:00 Pre-Op Diagnosis: Left Iliac and Superficial Femoral Artery Occlusion Post-Op Diagnosis: Left Iliac and Superficial Femoral Artery Occlusion I identified the patient and participated in the time-out.: Yes Procedure Operation Date: 11/12/24 08:00 Actual Procedures p Bovine Patch Angioplasty Right Superficial Femoral Artery. Interposition Graft Left Common Femoral Artery, Left Common Femoral Artery to Left Profunda Artery Bypass, Femoral to Femoral Bypass Right to Left, Left Lower Extremity Endovascular Femoral Popliteal Bypass(Left) - Mati Dominguez MD Surgeon Mati Dominguez MD Metal Machinist CATERINA Walker Estimated Blood Loss 1,000 Findings Consistent with Post-Op Diagnosis Specimens none Anesthesia Type General Complications none Disposition Accompanied Patient To Recovery: No Disposition: Recovery Room Indications this is a 53 yo male with severe claudication on rest pain of the left lower extremity. Revascularization was recommended. He had no useable vein of the lower extremity therefore a prosthetic fem fem bypass and a left lower extremity endovascular bypass was recommended. I have discussed the risks options and benefits of the procedure with the patient. The patient understands the risks options and benefits and agrees to the procedure. Description of Procedure The patient was taken to the OR and placed in the supine position. The groins and left lower extremity were prepped and draped in the usual fashion. A timeout was performed and the patient identified. A longitudinal incision was made in the left groin and this was carried down to the common femoral artery. This was exposed from the inguinal ligament to the bifurcation. Next a left groin incision was made. The common femoral artery was exposed from the inguinal ligament to approximately 15 cm down the superficial femoral artery. The profunda femoral artery was identified and slung with a vessel loop. the dissection was difficult due to previous 2 surgeries in the groin producing a large amount of scar tissue. The patient was then heparinized. The femoral artery was clamped proximally and distally. The profunda femoral artery as also clamped. An arteriotomy was made in the common femoral artery and carried down the sfa. There was a large amount of hyperplasia in the common femoral artery. It was decided to patch the sfa which was patent and do an interposition graft of the common femoral artery. The sfa was patch with a bovine patch using 6-0 prolened. We then transected the common femoral artery at the inguinal ligament and the origin of the sfa. An 8mm gore graft with sown in place using 5-0 prolene sutures. We the did sowed a 6mm gore graft onto this graft and did an end to end anastomosis to the profunda femoral artery. All clamps were remove and good flow was seen in the profunda femoral artery. We then clamped the right common femoral artery. Longitudinal arteriotomy was performed. The artery was patent with minimal plaque. There was good inflow noted. Subcutaneous tunnel was made between both groins and an 8 mm Bradford-Papito graft was passed through the tunnel. On the right side an end-to-side anastomosis was accomplished between the new graft and the right common femoral artery using a 5-0 Prolene suture in the usual vascular fashion. Once this was completed there was flushed through the graft. Clamp was placed on the graft. The graft was irrigated and suctioned out of all blood. The interposition graft to the left groin was then clamped proximal distally. A longitudinal arteriotomy was performed. The femorofemoral bypass graft was pulled the appropriate length and trimmed in appropriate fashion. An end-to-side anastomosis was accomplished tween the femorofemoral graft and the left interposition graft using a 5-0 Prolene suture in the usual vascular fashion. Prior to completing this closure backbleeding and forward bleeding was allowed to occur. Final few sutures were placed and securely tied. Clamps were then removed. Excellent flow was seen through the graft. Adequate hemostasis was noted. At that point we used ultrasound to locate the posterior tibial vein at the ankle on the left side. The vein was patent and compressed easily. Using micropuncture technique the vein was punctured and sheath inserted. Wire was then inserted up the vein to the common femoral vein. The snare sheath was then inserted and the wire removed within the snare inserted into the femoral vein. The cross femoral graft was punctured in the right side. An 8 Gibraltarian sheath was inserted. We then inserted the detour needle catheter. This was positioned in the proximal superficial femoral artery in the left side. Needle was fired and a wire was passed into the femoral vein. This was then snared and brought down into the popliteal vein. It was then pulled out through the sheath and the posterior tibial vein at the ankle. Using a 5 mm balloon the puncture site and the artery and vein was then dilated. The needle was then passed down into the popliteal artery below the knee. We had to do 3 punctures before the needle entered the popliteal artery and a wire passed into the popliteal artery down into the tibioperoneal trunk. We then inserted the 5 mm balloon and ballooned this opening. Once this was done we inserted Viabahn grafts into the infrapopliteal artery extending upward. We started with a 6 x 15 followed by two 6 x 10 and then finally followed by a 7 x 15 which landed in the proximal superficial femoral artery. The stents were then dilated with a 6 balloon distal approximately. The proximal end was then dilated with a 7 mm balloon. Completion angiogram showed the stent to be widely patent with excellent runoff. There is good Doppler signals heard in the foot. The sheath and then pulled from the posterior tibial vein and pressure applied. The 8 Gibraltarian sheath and device were then pulled from the cross femoral bypass. Cross femoral bypass puncture site was then closed with a interrupted 5-0 Prolene. Adequate hemostasis was then obtained of the wounds. After adequate hemostasis was noted the wounds were closed in usual fashion using running 2-0 Vicryl for the femoral sheath and 3-0 Vicryl for the subcutaneous layer. Tyler were used for the skin edges. Sterile dressings were applied to the wounds.The patient left the operation room in satisfactory condition and tolerated the procedure well. All needle and sponge counts were correct at the end of the procedure. Dominique Crane Pac assisted due to lack of resident availability and was necessary for positioning, draping, retraction, wound closure deep layers, subcutaneous tissue, and skin closure and was necessary for assisting with the case. I attest to the content of the Intraoperative Record and any orders documented therein. Any exceptions are noted below.
== END 2024-11-14 19:51 | disposition home health service (06) | DRG 253 ==
LOC: ASU 06:38 → 1E 07:36